=== PATIENT | male | born 1975 | race Hispanic/Latino ===

== ENCOUNTER 2017-06-28 17:17 | Inpatient (IN) | payer OTHER ==
[~2017-06-28 17:17] MED LIST: ISOVUE-370 76%-LOCM 1 ML ONE; Iopamidol-M 200 41% 20 ML VIAL ONE
[2017-06-28 18:36] LABS: #Eosinphils 0.1 thou/uL (0.0-0.7); #Lymphocytes 1.9 thou/uL (1.20-3.40); #Monocytes 0.5 thou/uL (0.11-0.59); %Basophils 0.1 % (0.0-1.0); %Eosinophils 1.3 % (0.0-10.0); %Lymphocytes 20.1 % (21.0-51.0); Hematocrit 43.8 % (42.0-52.0); Mean Platelet Volume 6.8 fL (7.4-10.4); Red Blood Cell (RBC) Count 5.01 mill/uL (4.70-6.10); White Blood Cell (WBC) Count 9.4 thou/uL (4.8-10.8)
[2017-06-28 19:00] LABS: ALT (SGPT) 25 U/L (8-55); AST (SGOT) 16 U/L (5-34); Alkaline Phosphatase 69 U/L (40-150); Anion Gap 16 mmol/L (10-20); BUN (Urea Nitrogen) 10 mg/dL (8.9-20.6); Bilirubin, Total 0.6 mg/dL (0.2-1.2); Calc. Creatinine Clearance 0 mL/min (70-130); Calcium 9.6 mg/dL (7.8-10.44); Carbon Dioxide 18 mmol/L (22-29); Chloride 108 mmol/L (98-107); Estimated GFR-MDRD 77; Globulin 3.7 g/dL (2.4-3.5); Protein, Total 7.6 g/dL (6.0-8.3)
[2017-06-28 19:03] LABS: Troponin I Less than 0.010 ng/mL (< 0.028)
--- NOTE | 2017-06-28 19:22 | CT ---
CTA OF THE THORAX UTILIZING IV CONTRAST PE PROTOCOL AND 3D REFORMATTED IMAGING 06/28/17 INDICATION: Chest pain, shortness of breath. Concern for PE. COMPARISON: Prior exam dated 12/25/16. FINDINGS: No central or segmental pulmonary embolus is present. There are areas of subsegmental atelectasis within both lower lobes. No pathologically enlarged lymp h nodes are evident. Heart and great vessels are unremarkable. There is fatty infiltration of the liver. There is scattered degenerative change. IMPRESSION: No central or segmental pulmonary embolus. POS: JON
--- NOTE | 2017-06-28 22:20 | CT ---
CT LUMBAR MYELOGRAM: 06/28/17 INDICATION: Cauda equina syndrome. COMPARISON: Prior MR lumbar spine dated 01/11/[address] lumbar spine dated 03/12/16. TECHNIQUE: Multiple CT images were obtained after intrathecal administration of contrast material. Please see Paty Ace's dictation concerning the lumbar myelogram for details concerning injection technique. FINDINGS: There is a mixed compartmental injection with intrathecal contrast and components of subdural contra st collections seen involving the lower thoracic spine as well as the lower lumbar spine. No acute fracture is evident. At the L5-S1 level, there is a stable asymmetric to the right disc osteophyte complex with loss of d isc space height and facet joint degenerative change inducing stable moderate to severe bilateral ne ural foraminal narrowing. At L4-5, there is a stable broad based disc osteophyte complex with facet joint degenerative change and ligamentum flavum hypertrophy inducing stable moderate to severe central canal narrowing. There is moderate bilateral neural foraminal narrowing which is stable. At L3-4, there is a broad based asymmetric to the right disc osteophyte complex again causing stable moderate central canal narrowing with moderate left and moderate to severe right neural foraminal n arrowing. Again seen are bilateral pars defects at L3. At L2-3, there is a mild broad based bulge with mild encroachment on the neural foramina which appea rs similar to the prior exam. At L1-2, there is no appreciable central canal or neural foraminal narrowing. At T12-L1, there is no appreciable central canal or neural foraminal narrowing. IMPRESSION: 1. Stable bilateral pars defects at L3 with advanced disc degenerative disease at L3-4 inducing stable moderate central canal narrowing with moderate left and moderate to severe right neural fora norma narrowing. 2. Stable moderate to severe central canal narrowing at L4-5 with moderate bilateral neural for aminal narrowing. 3. Stable moderate to severe bilateral neural foraminal narrowing at L5-S1. POS: JON
[2017-06-28 22:29] LABS: PTT 30.1 SEC (22.9-36.1); Prothrombin Time 13.7 SEC (12.0-14.7)
[2017-06-28] MEDS ORDERED: Bupivacaine HCl 0.5%/Epinephrine 1:200,000/PF 30 ml Vial ONE (22:48)
[2017-06-28] MEDS ORDERED: Thrombin 5000 UNITS/5 ML VIAL ONE (22:48)
[2017-06-28] MEDS ORDERED: Fentanyl 100 MCG/2 ML VIAL ONE (22:49)
[2017-06-28] MEDS ORDERED: Midazolam HCl 2 mg/2 ml Vial ONE (22:49)
[2017-06-28] MEDS ORDERED: Propofol 200 MG/20 ML VIAL ONE (23:25)
[2017-06-28] MEDS ORDERED: Lidocaine 1% PF 5 ML VIAL ONE (23:25)
[2017-06-28] MEDS ORDERED: PHENYLEPHRINE-NS 100 MCG/ML 10 ML SYRINGE ONE (23:25)
[2017-06-28] MEDS ORDERED: ePHEDrine/0.9% NaCl/PF SYRINGE 50 mg/10 ml ONE (23:25)
[2017-06-28] MEDS ORDERED: Vecuronium 10 MG VIAL ONE (23:25)
[2017-06-29] MEDS ORDERED: Sodium Chloride 0.9% 10 ML ONE ×2 (00:04→03:55)
[2017-06-29] MEDS ORDERED: Albumin 5% 500 ML ONE (01:35)
[2017-06-29] MEDS ORDERED: Phenylephrine 10 MG/NS 250 ML 250 ML ONE (01:35)
[2017-06-29] MEDS ORDERED: Vecuronium 10 MG VIAL ONE (02:51)
[2017-06-29] MEDS ORDERED: Acetaminophen/Codeine 30-300mg Tablet PO PRN ×2 (05:17)
[2017-06-29] MEDS ORDERED: Ondansetron HCl/PF 4 MG/2 ML Vial IVP PRN ×2 (05:25→09:20)
[2017-06-29] MEDS ORDERED: HYDROcodone/Acetaminophen 10/325 mg Tablet PO PRN ×2 (05:25)
[2017-06-29 06:15] VITALS: BMI 47.4
[2017-06-29] MEDS: Sodium Chloride 0.9% 1,000 ML IV SCH ×2 (06:28→19:00)
--- NOTE | 2017-06-29 06:32 | HP ---
DATE OF ADMISSION: 06/29/2017 HISTORY OF PRESENT ILLNESS: Mr. Zee is a 41-year-old male, who presented to [facility] tonight with complaining of low back pain and bilateral burning chest pain while sitting watching TV and shortness of breath. He notes he had nausea, one episode of vomiting, and chronic lower back pain. The patient was ambulatory yesterday morning, but he is unable to use his left leg as he has weakness and numbness, feels like it is going to give out. He is a known patient to Dr. Joseph in 01/2016. He was found to have an L3-L5 spinal stenosis. He was seen at [facility] back in 07/2016 for low back pain. He is unable to fit in the MRI scanner. It was suggested that he go see a surgeon about gastric sleeve before the low back, lumbar spine operation. Today, he returns without having had a past gastric sleeve operation to the emergency department with low back pain and since 8:00 p.m. on Friday of 06/27/2017. He reports having bowel and bladder incontinence 5 times. He noted \\\\"he wanted to mend it out\\\\", but then he decided that something else may be going on with his spine. CT myelogram of the lumbar spine was completed and showed severe stenosis at the L3-L5 region of the lumbar spine. Neurosurgery was consulted for these findings. ALLERGIES: KETOROLAC, LYRICA, METOCLOPRAMIDE, NSAIDs, GABAPENTIN, REGLAN, TORADOL, and TRAMADOL. MEDICATIONS: 1. Lipitor 40 mg oral once a day. 2. Losartan 100 mg oral once a day. 3. Clonazepam 1 mg oral once a day. 4. Morphine IR 15 mg. 5. Morphine extended-release capsule 10 mg oral. PAST MEDICAL HISTORY: Includes hyperlipidemia, high cholesterol, hypertension which has been treated, musculoskeletal disorder, osteoarthritis, degenerative joint disease, chronic back pain, spinal stenosis, lower back fracture per prior pulmonary embolism. He has been off blood thinners for greater than 3 months. PAST SURGICAL HISTORY: Cholecystectomy and circumcision. PSYCHIATRIC HISTORY: No previous psychiatric history. SOCIAL HISTORY: The patient denies alcohol use, drug use, or tobacco use. FAMILY HISTORY: Noncontributory to this case. REVIEW OF SYSTEMS: Patient reports chest pain. He reports shortness of breath. He reports low back pain and gait changes, numbness in the saddle region in the left leg and weakness x2 days. He reports bowel and bladder incontinence since Friday06/27/2017 at 8 p.m. PHYSICAL EXAMINATION: CONSTITUTIONAL/VITAL SIGNS: Reviewed and he is hemodynamically stable. He is afebrile, appears nontoxic, appears in mild pain. He is alert and oriented to person, place and time. HEENT: Normocephalic, atraumatic. Hearing intact. Moist mucous membranes. Trachea midline. EYES: Pupils equal and reactive to light. Extraocular muscles are intact. Sclerae is white, nonicteric. RESPIRATORY: The patient has bilateral symmetric chest rise. Appears to be in no shortness of breath. CARDIOVASCULAR: The patient has regular rate and rhythm. Normal S1, S2 heart sounds. EXTREMITIES: No distal cyanosis or clubbing noted. BACK: Tender to palpation in the midline lumbar spine. Range of motion is limited to pain. MUSCULOSKELETAL: Upper extremity 5/5 strength bilaterally in all muscle groups in the upper extremity. Lower extremity, 5/5 strength in the right lower extremity, 3/5 strength in the left lower extremity and numbness to light touch in the left lower extremities. No certain dermatomal pattern. NEUROLOGIC: Cranial nerves II through XII are grossly intact. His speech is fluent. He answers my questions appropriately. He is unable to walk due to left leg pain and numbness. SKIN: Normal skin exam. Warm, dry, and intact. Numbness to the saddle region in his left leg. PSYCHIATRIC: Normal psychiatric exam. ASSESSMENT: Mr. Zee is a 41-year-old male, who has lumbar spinal stenosis, low back pain, saddle anesthesia, left leg numbness and weakness x24 hours. PLAN: We will take him to the operating room. He has a pars fracture on both sides of L3. He will need a laminectomy L3-S1 and lumbar spinal fusion L3-L4. Since there is new bowel or bladder incontinence, we will operate. If there are any further questions, please feel free to contact Neurosurgery. NAYE
[2017-06-29] MEDS ORDERED: Lorazepam 2 MG/ML VIAL SLOW IVP SCH (07:00)
[2017-06-29 07:23] LABS: Oxyhemoglobin 96.2 % (94.0-97.0); Pressure Support 10 cmH2O; Sodium 138 mmol/L (135-148); Spontaneous Rate 18 min; Vent YES
[2017-06-29 07:24] LABS: Mode CPAP
--- NOTE | 2017-06-29 07:54 | RAD ---
FLUOROSCOPIC GUIDED LUMBAR MYELOGRAM: HISTORY: A 41-year-old male with back pain and right leg pain. FINDINGS: The patient has too large a body habitus to fit in the conventional MRI scanner. We have been asked by the emergency room to perform emergency after-hour myelogram. Informed consent was obtained from the patient and his . The patient was placed in the fluorosc opy unit. The patient L1-2 interlaminar region was localized using fluoroscopic guidance. The over lying skin was prepped and draped in the usual sterile manner. A 1% Lidocaine solution was used to anesthetize the overlying soft tissues. A 22 gauge 20 cm needle was used to gain access into the franco barachnoid space. Fifteen millimeters of Isovue-M 200 was injected. No complications encountered. IMPRESSION: Successful fluoroscopically guided lumbar puncture. POS: JON
--- NOTE | 2017-06-29 08:11 | PRG ---
DATE OF SERVICE: 06/28/2017 I personally examined the patient, reviewed the images and agree with the documentation of Mark garcia PA-C, dated 06/28/2017. SUBJECTIVE: Briefly, Mr. Melvin Zee is a 41-year-old gentleman known to Dr. Tineo and Dr. Vanita kan from our neurosurgery clinic. He has been in the emergency department in multiple institutions [facility] including [facility], [facility], and [facility]. These evaluations were often for low back pain. He has seen Dr. Joseph in our clinic for low back pain. He has had no rather severe lumbar stenosis for quite some time. He has DVT and pulmonary embolus in the past and has morbid obesity. He was not deemed safe candidate for general anesthesia. He never had an operation. Mr. Zee had occasions in the past where he fell and urged to avoid the bladder, but did not make the bathroom in time before he lost control. However, around 8:00 p.m. on Friday the , began lau ving uncontrolled stool and uncontrolled urine production and saddle anesthesia. He waited about 24 hours come to the emergency department. He was evaluated with a CT myelogram, which shows the know n stenosis. Also shows the known pars fractures of L3 bilaterally. We offered him urgent surgical intervention. The patient is known to be high risk for surgery including postoperative complications such as wound dehiscence or wound infection. He is particularly rather high risk for infection. Nonetheless, wi thout surgery, I do not think there is much hope for regaining bowel and bladder function and may ne ed to have significant leg braces or wheelchair dependence. Decision was not to intervene with thes e balanced against a high risk of surgery or reluctant to go forward. We discussed indications, risks, benefits, and alternatives and surgical intervention for cauda equi na syndrome. The risks discussed included, but were not limited to bleeding, infection, CSF leak, w ound dehiscence, instrumentation failure, need for future surgery and cardiopulmonary complications of anesthesia, major blood vessels, injury, and . They understand the risks and wants to proce ed. We were planning to decompress from L3 to sacrum and fix the pars fractures with transforaminal lumbar interbody arthrodesis, pedicle screw and rods and instrumentation at L3-L4.
[2017-06-29] MEDS ORDERED: Naloxone HCl 0.4 mg/ml Vial IV PRN (09:20)
[2017-06-29] MEDS ORDERED: diphenhydrAMINE HCl 25 MG CAP PO PRN (09:20)
[2017-06-29] MEDS ORDERED: diphenhydrAMINE HCl 50 MG/ML 1 ML VIAL IM PRN (09:20)
[2017-06-29] MEDS ORDERED: diphenhydrAMINE HCl 50 MG/ML 1 ML VIAL IVP PRN (09:20)
[2017-06-29] MEDS ORDERED: Communication Order-Pharmacy FS SCH (09:30)
[2017-06-29] MEDS: Fentanyl 5000 MCG/250 ML CADD IVPB PRN (10:05)
--- NOTE | 2017-06-29 14:00 | OP ---
DATE OF PROCEDURE: Commenced 06/28/2017, finished 06/29/2017 SURGEON: Nan Medina III, M.D. JOB COACH: Mark Shelton PA-C PREOPERATIVE INDICATION: Prevent further neurological deterioration and offer hope of recovery. PREOPERATIVE DIAGNOSIS: Longstanding lumbar stenosis, new onset saddle numbness and profound incont inence. POSTOPERATIVE DIAGNOSIS: Longstanding lumbar stenosis, new onset saddle numbness and profound incon tinence. OPERATIVE PROCEDURES: Decompressive laminectomy, medial facetectomy, foraminotomy at L3-L4, L4-L5, L5-S1 transforaminal lumbar interbody arthrodesis L3-L4 for bilateral L3 pars fractures, placement o f intervertebral biomechanical device, pedicle screw and ketan instrumentation, posterolateral arthrod esis L3-L4, local morselized autograft, morselized allograft. PREOPERATIVE MEDICATION: Ancef 2 grams IV. DRAIN NUMBER: One. DRAIN TYPE: 10 [place] Antoine. OPERATIVE DICTATION: The patient was brought to the operating room from the emergency department. There is some new onset saddle anesthesia, multiple episodes of incontinence starting 24 hours prior to his ER admission. We brought him to surgery urgently from our emergency department. General en dotracheal anesthesia was induced. The patient was positioned prone on the Demar frame with his c hest and hips supported by the appropriate attachments for the Demar frame. Lateral fluoro radiog raph was used to plan our incision. The lumbar skin was sterilely prepped and draped. We opened th e skin with a 10 blade knife and controlled bleeding with bipolar and monopolar cautery. We used mo nopolar cautery to dissect carefully through a copious amount of subcutaneous fat until we finally r eached the thoracodorsal fascia. We incised the fascia in the midline and reflected the paraspinal muscles off the spinous process and lamina from L3-S1. A self-retaining retractor was placed. The dissection was arduous given the patient's enormous size. A lateral fluoro radiograph confirmed the levels upon which we were operating. We then carried our dissection over the L2-L3 and L3-L4 facet joints to expose the transverse processes of L3 and L4 bilaterally. We then began the laminectomy with Adson and Leksell rongeurs. We opened in the midline with Kerrison's and widened our laminecto my defect on both sides with a high-speed drill and Kerrison rongeurs until we were lateral to the t hecal sac and flush with the pedicles at L3, L4, L5, and S1. We performed foraminotomies over the e xiting nerve roots. The L3 pars fractures were noted on each side. The pars interarticularis and f acet joints were removed on both sides. There were too many veins to access intervertebral space fr om the left, then we approached from the right. We incised the disk space through the foramen and e mptied disk contents using curettes and rongeurs. A rectangular shaped bone rasp measured the heigh t of the interspace to 10 mm. We prepared the endplates for grafting and then brought a 10 mm PEEK graft into the field. The laminectomy bone was carefully morselized on the back table and morselize d bone without any soft tissue attached was added to demineralized bone matrix as our fusion substra te. A fusion suture was placed in a 10 mm PEEK graft. This 10 mm graft was advanced into the L3-L4 interspace to the appropriate depth of radiographic guidance. We turned our attention to pedicle s crew instrumentation. Using bony anatomic landmarks, palpation of the medial portion of the pedicles, and a lateral fluoro radiograph as a guide, we chose entry points for pedicle screws at L3 and L4 bilaterally. We used a high-speed drill to create our entry points, bone awl to create our trajectories and a tap to prep are them for screws. We probed the trajectories and found them completely encased in bone. We then placed 6.5 x 55 mm screws bilaterally at L3 and L4. We irrigated copiously with bacitracin irrigat ion. Rods were placed and the screw heads and caps were tightened over the rods using a torque-coun ter-torque mechanism after compression across the interspace to keep the interbody device in place. We applied multiple Valsalva maneuvers to the patient and did not see any CSF egress from the preop erative myelogram. In the entry point, there was at L1-L2 one space superiorly where laminectomy en ded. We elected not to expose that area. We then irrigated copiously with bacitracin irrigation. We decorticated the transverse processes of L3 and L4 bilaterally and over the decorticated bone, we left demineralized bone matrix and morselized autograft as our posterolateral fusion substrate. We ensured each nerve root from L3-S1 on both sides and was adequately decompressed. We tunneled the drain inferiorly through a separate stab incision. We treated the wound with vancomycin powder. We closed in anatomic layers over a drain. This was a clean case and no contamination.
[2017-06-29] MEDS: Cyclobenzaprine 10 MG TAB PO PRN (20:24)
[2017-06-29] MEDS: Atorvastatin Calcium 40 MG TAB PO SCH (20:24)
[2017-06-30] MEDS: Cyclobenzaprine 10 MG TAB PO PRN ×2 (03:57→16:00)
[2017-06-30] MEDS: Gabapentin 300 MG CAP PO SCH ×3 (08:17→21:11)
[2017-06-30] MEDS: Losartan Potassium 25 MG TAB PO SCH (08:18)
[2017-06-30] MEDS: clonazePAM 1 MG TAB PO SCH (08:18)
--- NOTE | 2017-06-30 08:28 | PRG ---
DATE OF SERVICE: 06/30/2017 Mr. Zee is 1 day out from decompression fusion in lumbar spine for cauda equina syndrome, severe stenosis and bilateral L3 pars fractures. Mr. Zee is in an expected amount of pain after surgery. The nerves in the sacral area are awaken ing and has resulted in some electric radiating pains to the scrotum and perineal area. This area w as numb before surgery. There is antigravity strength in the lower extremities. Mr. Zee is refu sing to move for the nurses. He does not want to be turned from side to side, he is resting directl y on his incision with all of his body weight. 195 mL have come out of the drain. My plan for Mr. Zee is to mobilize. In spite of his pain and will need to be rolled side to side. If he refuses to be rolled, will have to get a bed to minimiz e pressure on his incision and reduce the risks of a sacral decubitus and wound dehiscence. Beds th at roll side to side on their own could be helpful or an air bed or sand bed. We will have wound ca re decide on the bed platform that is best given his body habitus. Mr. Zee is at high risk for postoperative complications. He is extremely high risk for infection given his obesity, his lack of sensation in the incisional area and his fecal incontinence. Those 3, combined with likely type 2 diabetes, make his infection risk exceedingly high. He was treated w ith vancomycin powder at the time of surgery, we will have to keep a close eye on his incision. Mr. Zee's other risk is his body weight. The instrumentation, we left in will be put under signi ficant distress once he starts mobilizing. If instrumentation breaks and there is slip between the vertebrae it may have to be revised or a neurological deficit could result. I will have to get him fitted with a brace of some sort once he is able to tolerate being up. Mr. Zee is in a difficult situation. He is overweight. He had a cauda equina syndrome that resu lted incontinence for around 24 hours. I anticipate that more will have to be done, which is unfort unate.
[2017-06-30] MEDS: Sodium Chloride 0.9% 1,000 ML IV SCH ×2 (08:35→21:13)
--- NOTE | 2017-06-30 08:50 | PRG ---
DATE OF SERVICE: 06/30/2017 Mr. Zee is a 41-year-old male who is status post 2 days out from a laminectomy L3 through S1 and fusion L3 through L4 for cauda equina syndrome. There were no acute events overnight in the ICU. H is vital signs have been stable. Neurologically, he is intact. He does have some weakness in the l eft leg, mild weakness and he complains of a burning sensation in the pelvic area. Will add Gabapen tin 300 mg p.o. t.i.d. for the nerve pain in the pelvic region. Today we will move him to the floor , on the surgical unit and have physical therapy aggressively work with him to mobilize. Will also get a pressure bed since he is morbidly obese and try to keep his weight off of the incision. Outpu t from the MARK drain was approximately 60 mL since yesterday at 8:00 p.m. I talked to him this morni ng about the importance of losing weight and mobilizing to prevent DVT and future pulmonary embolism . If there are any further questions, please feel free to contact Neurosurgery.
[2017-06-30] MEDS: Fentanyl 5000 MCG/250 ML CADD IVPB PRN (12:12)
[2017-06-30] MEDS: Atorvastatin Calcium 40 MG TAB PO SCH (21:11)
[2017-07-01] MEDS: Cyclobenzaprine 10 MG TAB PO PRN ×2 (00:34→23:29)
--- NOTE | 2017-07-01 06:45 | PRG ---
DATE OF SERVICE: 07/01/2017 SUBJECTIVE: I saw Mr. Zee in his room this morning. He is status post from a lumbar decompressi on and fusion of L3-L4, lumbar decompression at L3-S1. He is doing well this morning in no acute di stress. There are no new neurologic deficits on exam. The left leg numbness and tingling is starti ng to resolve and he feels like he is getting better strength in the left and right lower extremitie s. The testicular burning and pelvic nerve pain that he was having yesterday starting to resolve. He is able tolerate a regular diet. Work with physical therapy yesterday and was able to stand up a t bedside. However, he did not ambulate in the proctor yet. Today, it will be important for him to ge t up and ambulate as much as possible with physical therapy. He will need to wear the LSO brace whe n ambulating or sitting upright. He has been transferred from the ICU to the floor and his pain is much better this morning. I added Colace to his medicine regimen to help with constipation. If the re are any further questions, please feel free to contact Neurosurgery.
--- NOTE | 2017-07-01 07:10 | PRG ---
DATE OF SERVICE: 07/01/2017 SUBJECTIVE: Mr. Zee is 2 days out from decompression fusion in the lumbar spine for cauda equina . The catheter was removed and he says he can feel his bladder when its full. There is some diffic ulty emptying the bladder, but eventually can get it done into the urinal. He feels his feet, but t hey do not feel normal. He has been moved out of the ICU. On examination, Mr. Zee does indeed feels sensation all the way to the bottoms of his feet. This sensation is diminished, but if there, he has antigravity strength throughout and actually moves ag ainst some resistance. Mr. Zee will have a protracted recovery given the size is at high risk for infection and he will need placement inpatient rehabilitation. We will try to make arrangements for that placement.
[2017-07-01] MEDS: Docusate 100 MG CAP PO PRN (09:48)
[2017-07-01] MEDS: Losartan Potassium 25 MG TAB PO SCH (09:48)
[2017-07-01] MEDS: clonazePAM 1 MG TAB PO SCH (09:48)
[2017-07-01] MEDS: Gabapentin 300 MG CAP PO SCH ×3 (09:48→20:19)
[2017-07-01] MEDS: Sodium Chloride 0.9% 1,000 ML IV SCH ×2 (09:49→23:30)
[2017-07-01] MEDS: Fentanyl 5000 MCG/250 ML CADD IVPB PRN (17:55)
[2017-07-01] MEDS: Atorvastatin Calcium 40 MG TAB PO SCH (20:19)
[2017-07-02] MEDS: clonazePAM 1 MG TAB PO SCH (09:24)
[2017-07-02] MEDS: Losartan Potassium 25 MG TAB PO SCH (09:24)
[2017-07-02] MEDS: Gabapentin 300 MG CAP PO SCH ×3 (09:24→20:14)
[2017-07-02] MEDS: Docusate 100 MG CAP PO PRN (09:27)
--- NOTE | 2017-07-02 12:09 | PRG ---
DATE OF SERVICE: 07/02/2017 I saw Mr. Zee in his hospital room this morning. He was able to stand yesterday. He is not yet walking. He still does not feel when his bladder is full, but he does get some bladder spasms and s ome body sensations that remind that he might need to start urinating. Mr. Zee is anxious to start his rehabilitation. I think that the next phase in his treatment. O nce he is a candidate for inpatient rehabilitation, we can make the transfer.
[2017-07-02] MEDS: Sodium Chloride 0.9% 1,000 ML IV SCH ×2 (12:35→20:19)
[2017-07-02] MEDS: Cyclobenzaprine 10 MG TAB PO PRN (12:35)
[2017-07-02] MEDS: Atorvastatin Calcium 40 MG TAB PO SCH (20:13)
[2017-07-03] MEDS: Fentanyl 5000 MCG/250 ML CADD IVPB PRN (02:15)
[2017-07-03] MEDS: Cyclobenzaprine 10 MG TAB PO PRN ×2 (02:23→15:29)
[2017-07-03] MEDS: Losartan Potassium 25 MG TAB PO SCH (09:29)
[2017-07-03] MEDS: clonazePAM 1 MG TAB PO SCH (09:29)
[2017-07-03] MEDS: Gabapentin 300 MG CAP PO SCH ×3 (09:29→20:16)
[2017-07-03] MEDS: Sodium Chloride 0.9% 1,000 ML IV SCH (18:34)
[2017-07-03] MEDS: Acetaminophen 325 MG TAB PO PRN (20:16)
[2017-07-03] MEDS: Atorvastatin Calcium 40 MG TAB PO SCH (20:16)
[2017-07-04] MEDS: Sodium Chloride 0.9% 1,000 ML IV SCH ×2 (00:56→20:33)
--- NOTE | 2017-07-04 07:26 | PRG ---
DATE OF SERVICE: 07/04/2017 I saw Melvin Zee in his hospital room this morning. He is 5 days out from lumbar decompression fo r cauda equina syndrome and fusion for pars fractures. Mr. Zee remains in his wound care bed to keep pressure off of his incision. Drains have already been removed. He did ambulate with his brace on for a few steps in the proctor yesterday. I think he would be a good candidate for inpatient rehabilitation. As soon as they have a bed available and he is approved for that we can transfer him. Mr. Zee is worried that he does not have much of an a ppetite, but I do not think suppressant is needed as long as he is getting fluids in. Dietary has recommended Ensure and he is already taking it.
[2017-07-04] MEDS: clonazePAM 1 MG TAB PO SCH (08:35)
[2017-07-04] MEDS: Losartan Potassium 25 MG TAB PO SCH (08:35)
[2017-07-04] MEDS: Gabapentin 300 MG CAP PO SCH ×3 (08:35→21:03)
[2017-07-04] MEDS: Fentanyl 5000 MCG/250 ML CADD IVPB PRN (08:50)
[2017-07-04] MEDS: Acetaminophen 325 MG TAB PO PRN ×2 (12:29→23:50)
[2017-07-04] MEDS: Cyclobenzaprine 10 MG TAB PO PRN ×2 (12:29→21:05)
[2017-07-04] MEDS: Atorvastatin Calcium 40 MG TAB PO SCH (21:03)
[2017-07-05] MEDS: clonazePAM 1 MG TAB PO SCH (07:59)
[2017-07-05] MEDS: Losartan Potassium 25 MG TAB PO SCH (07:59)
[2017-07-05] MEDS: Gabapentin 300 MG CAP PO SCH ×3 (08:00→21:01)
[2017-07-05] MEDS: Cyclobenzaprine 10 MG TAB PO PRN ×2 (08:02→21:13)
--- NOTE | 2017-07-05 14:14 | PRG ---
DATE OF SERVICE: 07/05/2017 Anders Cheema PA-C dictating for Dr. Phillip Joseph. SUBJECTIVE: Mr. Zee is now postoperative day #7, having undergone a lumbar decompression for cau da equina syndrome and fusion for pars fractures. He has been ambulating in his brace through the alls and states that the only pain he is experiencing is incisional back pain. He has not noted any weakness in the bilateral lower extremities. He is currently using his IS while in bed. He does s price that he is continuing to feel better daily. He remains at neurologic baseline. We will contin ue to follow the patient, he is progressing well. He states that he does have a small amount of leg pain, worse on the left than the right, but again this is improving daily. The plan is inpatient r ehab when stable. We will continue to follow the patient. Please call with any change in neurologi c status.
[2017-07-05] MEDS: Sodium Chloride 0.9% 1,000 ML IV SCH (16:47)
[2017-07-05] MEDS: Atorvastatin Calcium 40 MG TAB PO SCH (21:01)
[2017-07-06] MEDS: Fentanyl 5000 MCG/250 ML CADD IVPB PRN (02:37)
[2017-07-06] MEDS: Sodium Chloride 0.9% 1,000 ML IV SCH ×2 (06:10→10:44)
[2017-07-06] MEDS: Docusate 100 MG CAP PO PRN (08:35)
[2017-07-06] MEDS: Gabapentin 300 MG CAP PO SCH ×3 (08:36→21:02)
[2017-07-06] MEDS: clonazePAM 1 MG TAB PO SCH (08:36)
[2017-07-06] MEDS: Losartan Potassium 25 MG TAB PO SCH (08:36)
--- NOTE | 2017-07-06 12:47 | PRG ---
DATE OF SERVICE: 07/06/2017 SUBJECTIVE: Mr. Zee is hospital day 6, following lumbar decompression and stabilization for caud a equina syndrome. He is mobilizing in the hallway as I see him today with a rolling walker and sta jono he feels significantly better each day. This is excellent news. He is able to activate all ijeoma tomes on exam and I feel even improvement in his pelvic and perineal sensation. I am very pleased w ith how Mr. Zee is doing. I have encouraged him in this regard.
[2017-07-06] MEDS ORDERED: FLU VACC QS2017-18 36 mo. & older 0.5 ML SYRINGE IM ONE (17:15)
[2017-07-06] MEDS: Cyclobenzaprine 10 MG TAB PO PRN (21:01)
[2017-07-06] MEDS: Atorvastatin Calcium 40 MG TAB PO SCH (21:02)
[2017-07-07] MEDS: Sodium Chloride 0.9% 1,000 ML IV SCH ×2 (02:13→12:10)
--- NOTE | 2017-07-07 06:55 | PRG ---
DATE OF SERVICE: 07/07/2017 Mr. Zee is a 41-year-old male who I saw in his room this morning. Yesterday he has been able to ambulate with physical therapy in the proctor. He has been able to tolerate a regular diet and his massiel n is well controlled with IV pain medication. There are no new neurologic deficits on exam this mor anil and his legs seem to be getting stronger. Today we will have him continue to ambulate with phy sical therapy while case management looks for a place for him to go to rehab. The Anesthesiology gr oup will be working on discontinuing his [employer] pump and restarting him on his home pain medications. Overnight, his vital signs have been stable and there were no acute events overnight. If there are any further questions, please feel free to contact Neurosurgery.
[2017-07-07] MEDS: Losartan Potassium 25 MG TAB PO SCH (09:00)
[2017-07-07] MEDS: Docusate 100 MG CAP PO PRN (09:00)
[2017-07-07] MEDS: Gabapentin 300 MG CAP PO SCH ×3 (09:06→22:21)
[2017-07-07] MEDS: Cyclobenzaprine 10 MG TAB PO PRN ×2 (09:16→22:20)
[2017-07-07] MEDS: clonazePAM 1 MG TAB PO SCH (09:18)
--- NOTE | 2017-07-07 09:24 | PRG ---
DATE OF SERVICE: 07/07/2017 SUBJECTIVE: Mr. Zee continues to recuperate from decompression with fusion of the lumbar spine i n the setting of cauda equina syndrome. Mr. Zee is doing his best to keep his weight off this in cision by lying side to side. He is up with physical therapy and he made it one quarter of the proctor way yesterday. I think he is a good candidate for inpatient rehabilitation. He can be transferred at any time. We will make those arrangements today.
[2017-07-07] MEDS: Zolpidem Tartrate 5 MG TAB PO PRN (22:20)
[2017-07-07] MEDS: Atorvastatin Calcium 40 MG TAB PO SCH (22:21)
[2017-07-08] MEDS: Sodium Chloride 0.9% 1,000 ML IV SCH ×2 (05:44→17:21)
--- NOTE | 2017-07-08 06:45 | PRG ---
DATE OF SERVICE: 07/08/2017 Mr. Zee is still a recuperating from his decompression fusion for cauda equina syndrome. He is m aking slow, but steady progress with physical therapy. He walked down half the hallway yesterday, h e did reasonably well. Mr. Zee is trying as best he can to keep weight off of his incision. He tries to move around as much as possible. I will get an ultrasound of the lower extremities today t o rule out DVT. Given his body habitus, I could not tell if either leg was more swollen than the ot her.
--- NOTE | 2017-07-08 08:17 | PRG ---
DATE OF SERVICE: 07/08/2017 HISTORY OF PRESENT ILLNESS: Mr. Zee is a 41-year-old male. I saw in his room this morning. He is status post decompression of the lumbar spine for cauda equina syndrome. He has been stable over night and there are no new neurologic deficits on exam. He has been working with physical therapy a nd ambulating in the proctor. His pain is well controlled with his home oral pain medication as he is now off of the [employer] pump. His vital signs have been stable overnight and he has been afebrile. Case management has been working on discharge. The last note that I see from them is a send out note. He will continue to work with physical therapy today and ambulate as much as possible. In the meant barbara, case management will continue to find a place for rehabilitation, working with his insurance co terrance to get approval. If there are any further questions, please feel free to contact Neurosurgery .
--- NOTE | 2017-07-08 09:06 | ULT ---
ULTRASOUND BILATERAL LOWER EXTREMITY VENOUS DOPPLER: HISTORY: Immobility, body habitus, at risk for DVT. History of DVT. COMPARISON: Lower extremity Doppler 05/01/17. TECHNIQUE: Bilateral lower extremity venous Doppler was performed in the bilateral common femoral, femoral, pro ximal portions, greater saphenous, and deep femoral vein as well as the popliteal and posterior tibi al veins. Normal flow, augmentation, and compression. IMPRESSION: No deep venous thrombosis. POS: OFF
[2017-07-08] MEDS: clonazePAM 1 MG TAB PO SCH (09:28)
[2017-07-08] MEDS: Cyclobenzaprine 10 MG TAB PO PRN ×2 (09:28→18:33)
[2017-07-08] MEDS: Gabapentin 300 MG CAP PO SCH ×3 (09:28→19:59)
[2017-07-08] MEDS: Losartan Potassium 25 MG TAB PO SCH (09:29)
[2017-07-08] MEDS: Atorvastatin Calcium 40 MG TAB PO SCH (19:59)
[2017-07-09] MEDS: Sodium Chloride 0.9% 1,000 ML IV SCH ×2 (06:01→17:03)
--- NOTE | 2017-07-09 07:06 | PRG ---
DATE OF SERVICE: 07/09/2017 Mr. Zee continues to work with our physical therapist and wait on rehab placement. An ultrasound yesterday was negative for DVT. Mr. Zee's neurological function is improving. He can feel when his bladder is full and starting to control his sphincter better and better. He has good sensation and strength in the legs. The in cision looks reasonable. He is going to have to be very careful about keeping weight off of his inc ision to avoid dehiscence and infection.
--- NOTE | 2017-07-09 07:30 | PRG ---
DATE OF SERVICE: 07/09/2017 Mr. Zee is a 41-year-old male I saw in his room this morning. Overnight there have been no acute events. There are no new neurologic deficits on exam. The 4 x 4s over the incision were removed a nd replaced today and held in place with Medipore tape. Incision is clean, dry, and intact with Jonathan ri-Strips and subcutaneous stitches. Yesterday, he was able to ambulate with physical therapy out i n the proctor. He had a venogram yesterday that showed no deep vein thrombosis. He was able to tolera te a regular diet and his pain is well controlled with his home oral pain medication. We continue t o wait on disposition from rehab and case management. If there are any further questions, please feel free to contact Neurosurgery.
[2017-07-09] MEDS: Cyclobenzaprine 10 MG TAB PO PRN (08:15)
[2017-07-09] MEDS: Docusate 100 MG CAP PO PRN (08:15)
[2017-07-09] MEDS: Losartan Potassium 25 MG TAB PO SCH (08:16)
[2017-07-09] MEDS: Gabapentin 300 MG CAP PO SCH ×3 (08:16→20:27)
[2017-07-09] MEDS: clonazePAM 1 MG TAB PO SCH (08:16)
[2017-07-09] MEDS: Atorvastatin Calcium 40 MG TAB PO SCH (20:27)
--- NOTE | 2017-07-10 06:29 | PRG ---
DATE OF SERVICE: 07/10/2017 Mr. Zee continues to slowly improve with physical therapy. He is recuperating from a lumbar deco mpression with fusion for both cauda equina syndrome and L3 pars fractures. He is morbidly obese a nd has a high risk for postoperative complications including infection and instrumentation failure. I think he would benefit from inpatient rehabilitation until he is safer with his activities of indra ly living.
[2017-07-10] MEDS: Gabapentin 300 MG CAP PO SCH ×3 (09:38→20:35)
[2017-07-10] MEDS: Losartan Potassium 25 MG TAB PO SCH (09:38)
[2017-07-10] MEDS: clonazePAM 1 MG TAB PO SCH (09:38)
[2017-07-10] MEDS: Sodium Chloride 0.9% 1,000 ML IV SCH ×2 (17:54→21:43)
[2017-07-10] MEDS: Atorvastatin Calcium 40 MG TAB PO SCH (20:35)
[2017-07-10] MEDS: Zolpidem Tartrate 5 MG TAB PO PRN (20:36)
[2017-07-10] MEDS: Cyclobenzaprine 10 MG TAB PO PRN (20:36)
[2017-07-11] MEDS: Promethazine HCl 25 MG/ML VIAL IM PRN (10:20)
[2017-07-11] MEDS: clonazePAM 1 MG TAB PO SCH (10:22)
[2017-07-11] MEDS: Losartan Potassium 25 MG TAB PO SCH (10:22)
[2017-07-11] MEDS: Gabapentin 300 MG CAP PO SCH ×3 (10:23→21:24)
[2017-07-11] MEDS: Cyclobenzaprine 10 MG TAB PO PRN ×2 (10:27→21:26)
[2017-07-11] MEDS: Sodium Chloride 0.9% 1,000 ML IV SCH (16:04)
--- NOTE | 2017-07-11 16:10 | PRG ---
DATE OF SERVICE: 07/11/2017 SUBJECTIVE: Mr. Zee is now 12 days out from lumbar laminectomy and fusion with Dr. Medina for cauda equina syndrome and pars defects bilaterally. The patient is in bed this morning with minima l complaints. We are still awaiting recent admission of inpatient rehabilitation evaluation as ther e is a great deal of concern for his medical comorbidities that he may have a significant complicati on with this type of surgery and as such need to step down facility to proceed to before going home eventually. No additional complaints. Neurosurgery is following.
[2017-07-11] MEDS: Atorvastatin Calcium 40 MG TAB PO SCH (21:24)
[2017-07-12] MEDS: Sodium Chloride 0.9% 1,000 ML IV SCH ×2 (00:51→14:10)
[2017-07-12] MEDS: Losartan Potassium 25 MG TAB PO SCH (08:36)
[2017-07-12] MEDS: Gabapentin 300 MG CAP PO SCH ×3 (08:36→20:06)
[2017-07-12] MEDS: clonazePAM 1 MG TAB PO SCH (08:36)
[2017-07-12] MEDS: Cyclobenzaprine 10 MG TAB PO PRN ×2 (08:43→21:55)
--- NOTE | 2017-07-12 09:22 | PRG ---
DATE OF SERVICE: 07/12/2017 SUBJECTIVE: Mr. Zee is status post decompression and fusion for cauda equina syndrome. There lau ve been no concerning events over the last 24 hours. We continue to await final disposition. Once disposition has been determined, Mr. Zee can be discharged right away.
--- NOTE | 2017-07-12 10:51 | PRG ---
DATE OF SERVICE: 07/12/2017 SUBJECTIVE: Mr. Zee is postop day 13 now following lumbar laminectomy and fusion. He is resting in his bed this morning and I do not arouse and plan with him is to just awaiting rehab placement.
[2017-07-12] MEDS: Atorvastatin Calcium 40 MG TAB PO SCH (20:06)
[2017-07-13] MEDS: Sodium Chloride 0.9% 1,000 ML IV SCH (03:13)
[2017-07-13] MEDS: Gabapentin 300 MG CAP PO SCH ×3 (08:12→20:47)
[2017-07-13] MEDS: clonazePAM 1 MG TAB PO SCH (08:12)
[2017-07-13] MEDS: Losartan Potassium 25 MG TAB PO SCH (08:13)
[2017-07-13] MEDS: Cyclobenzaprine 10 MG TAB PO PRN ×2 (08:14→20:47)
--- NOTE | 2017-07-13 12:05 | PRG ---
DATE OF SERVICE: 07/13/2017 SUBJECTIVE: Mr. Zee is resting again in bed this morning. [facility]
[2017-07-13 13:30] LABS: Mean Platelet Volume 6.6 fL (7.4-10.4); Red Blood Cell (RBC) Count 3.63 mill/uL (4.70-6.10); White Blood Cell (WBC) Count 7.7 thou/uL (4.8-10.8)
[2017-07-13 13:45] LABS: Anion Gap 13 mmol/L (10-20); BUN (Urea Nitrogen) 13 mg/dL (8.9-20.6); Calc. Creatinine Clearance 277 mL/min (70-130); Calcium 8.7 mg/dL (7.8-10.44); Carbon Dioxide 24 mmol/L (22-29); Chloride 103 mmol/L (98-107); Estimated GFR-MDRD Greater than 90
[2017-07-13 14:08] LABS: Anisocytosis SLIGHT = 6-15 cells (100X) (0-5/hpf); Neutrophil 58 % (42-75); Polychromasia SLIGHT = 2-3 cells (100X) (0-2/hpf); Reactive Lymphocytes 4 % (0-10)
[2017-07-13] MEDS: Atorvastatin Calcium 40 MG TAB PO SCH (20:48)
[2017-07-14] MEDS: Docusate 100 MG CAP PO PRN ×2 (05:51→20:46)
[2017-07-14] MEDS: Gabapentin 300 MG CAP PO SCH ×3 (09:12→20:46)
[2017-07-14] MEDS: clonazePAM 1 MG TAB PO SCH (09:12)
[2017-07-14] MEDS: Losartan Potassium 25 MG TAB PO SCH (09:13)
[2017-07-14] MEDS: Cyclobenzaprine 10 MG TAB PO PRN ×2 (12:12→20:46)
--- NOTE | 2017-07-14 17:41 | PRG ---
DATE OF SERVICE: 07/14/2017 SUBJECTIVE: Mr. Zee has been in the hospital now just over 2 weeks for cauda equina syndrome gina ated decompression and fusion. We continue to await final now on disposition. In the meanwhile, we will continue with aggressive physical therapy and occupational therapy.
[2017-07-14] MEDS: Atorvastatin Calcium 40 MG TAB PO SCH (20:46)
[2017-07-14] MEDS: Zolpidem Tartrate 5 MG TAB PO PRN (20:46)
--- NOTE | 2017-07-15 07:10 | PRG ---
DATE OF SERVICE: 07/15/2017 Mr. Zee is a 41-year-old male who I saw in his room this morning. He has been doing well over and there are no new neurologic deficits on exam. His vital signs have been stable over . He was able to ambulate with physical therapy approximately 300 feet. This morning I t ook his dressing off of the lumbar incision and had the nurse cleaned the incision with Hibiclens an d get all the sticky substance off of his back from the tape. We will leave the dressing open to diaz martinez. It is important that he lays on his side as much as possible to keep the weight off of his incis ion. We are still waiting disposition from rehab. The last note was on 07/10/2017. There have bee n in communication with [facility]; however, they are resending his information as a workers' compe nsation case to [facility] to reconsider. He can continue to work with physical therapy today as m uch as possible and ambulate in the rpoctor several times today. He is able to tolerate a regular diet and his pain is well controlled with pain medication. If there are any further questions, please feel free to contact Neurosurgery.
--- NOTE | 2017-07-15 07:13 | PRG ---
DATE OF SERVICE: 07/15/2017 Mr. Zee is over 2 weeks out from decompression for cauda equina and fusion of his L3 pars fractur es. Mr. Zee would be a good candidate for inpatient rehabilitation if he is able to secure the financ ial resources for it, I think it is the best thing for him. If somebody is able to watch the incisi on and do our best to keep it from dehiscing or getting infected. I asked him to lose weight over t barbara so the instrumentation left in the spine does not have undue stress for a long time and eventual ly fail.
[2017-07-15] MEDS: Gabapentin 300 MG CAP PO SCH ×3 (08:48→20:51)
[2017-07-15] MEDS: clonazePAM 1 MG TAB PO SCH (08:48)
[2017-07-15] MEDS: Losartan Potassium 25 MG TAB PO SCH (08:48)
[2017-07-15] MEDS: Cyclobenzaprine 10 MG TAB PO PRN ×2 (08:50→20:55)
[2017-07-15] MEDS: Atorvastatin Calcium 40 MG TAB PO SCH (20:52)
[2017-07-15] MEDS: Zolpidem Tartrate 5 MG TAB PO PRN (20:55)
--- NOTE | 2017-07-16 08:26 | PRG ---
DATE OF SERVICE: 07/16/2017 Mr. Zee is 2 weeks out from decompressive laminectomy at L3-S1 as well as fusion for his L3 pars fractures. This morning, he is doing well. There have been no acute events overnight. There are n o new neurologic deficits on exam. He has been able to ambulate with physical therapy greater than 300 feet in the hallway. He is able to tolerate a regular diet and his pain is well controlled with oral pain medication. His incision has been cleaned and looks like it is healing well. It will be important for him to keep the incision clean after he leaves the hospital as this will prevent infe ction. I will also write a script to send him home with 10 days of Keflex from the hospital for inf ection. We are waiting to hear from case management and to see if they can figure out his financial reasons that are keeping him in the hospital. He can be discharged from our point of view at any t barbara. I signed the MOT today and hopefully he can be transferred to rehabilitation. If there are an y further questions, please feel free to contact Neurosurgery.
[2017-07-16] MEDS: clonazePAM 1 MG TAB PO SCH (08:40)
[2017-07-16] MEDS: Losartan Potassium 25 MG TAB PO SCH (08:40)
[2017-07-16] MEDS: Gabapentin 300 MG CAP PO SCH ×3 (08:40→19:43)
[2017-07-16] MEDS: Cyclobenzaprine 10 MG TAB PO PRN ×2 (08:40→17:16)
[2017-07-16] MEDS: Atorvastatin Calcium 40 MG TAB PO SCH (19:44)
[2017-07-16] MEDS: Promethazine HCl 25 MG/ML VIAL IM PRN (19:48)
[2017-07-17] MEDS: Docusate 100 MG CAP PO PRN (00:30)
--- NOTE | 2017-07-17 06:54 | PRG ---
DATE OF SERVICE: 07/17/2017 Mr. Zee is a 41-year-old male who I saw in his room this morning. There are no new neurologic de ficits on exam. He has been able to ambulate over 300 feet with physical therapy. He is able fox ate a regular diet and his pain is well controlled with pain medication. Case management continues to work on placement for rehab therapy at this time and we are awaiting disposition orders from them . As soon as he is able to be discharged to rehab he can go. MOT has been signed and prescriptions are on the chart. If there are any further questions, please feel free to contact Neurosurgery.
[2017-07-17] MEDS: Losartan Potassium 25 MG TAB PO SCH (08:19)
[2017-07-17] MEDS: clonazePAM 1 MG TAB PO SCH (08:20)
[2017-07-17] MEDS: Gabapentin 300 MG CAP PO SCH ×3 (08:20→21:05)
[2017-07-17] MEDS: Cyclobenzaprine 10 MG TAB PO PRN ×2 (08:27→17:00)
[2017-07-17] MEDS: Atorvastatin Calcium 40 MG TAB PO SCH (21:05)
--- NOTE | 2017-07-18 08:25 | PRG ---
DATE OF SERVICE: 07/18/2017 HISTORY OF PRESENT ILLNESS: Mr. Zee is a 41-year-old male who I saw him in his room this monitor . He has been ambulating well in the proctor approximately 300 feet. He has been able to tolerate a r egular diet. His pain is well controlled with oral pain medication. His vital signs overnight have been stable and he has no new neurologic deficits on exam. I talked with Oma from rehab yesterd ay and she informed me that the insurance was no longer an issue; however, because of his progress, he has been denied access to rehabilitation. I discussed this with Dr. Medina this morning and w e still feel strongly that he needs rehab as he is 400 pounds and had a recent lumbar fusion and kingsley inectomy. He is at extremely high risk for postoperative infection because of body habitus and life style. Because of these reasons, we highly encouraged a rehab to reconsider and take Melvin royal s the patient. His incision this morning is healing well and there are no signs of erythema or infe ction. There have been talks to him being discharged home, however, the has no means to take c are of him at home as the patient will need an assist. Because of his imminent need for rehab, Neur osurgery is not willing to write discharge orders at this time. If there are any further questions, please feel free to contact Neurosurgery.
[2017-07-18] MEDS: Losartan Potassium 25 MG TAB PO SCH (09:17)
[2017-07-18] MEDS: clonazePAM 1 MG TAB PO SCH (09:17)
[2017-07-18] MEDS: Gabapentin 300 MG CAP PO SCH ×3 (09:17→20:41)
[2017-07-18] MEDS: Cyclobenzaprine 10 MG TAB PO PRN ×2 (09:22→22:15)
[2017-07-18] MEDS: Atorvastatin Calcium 40 MG TAB PO SCH (20:40)
[2017-07-18] MEDS: Zolpidem Tartrate 5 MG TAB PO PRN (22:14)
[2017-07-18] MEDS: Docusate 100 MG CAP PO PRN (22:16)
[2017-07-19] MEDS: Losartan Potassium 25 MG TAB PO SCH (08:49)
[2017-07-19] MEDS: Gabapentin 300 MG CAP PO SCH ×3 (08:49→21:51)
[2017-07-19] MEDS: clonazePAM 1 MG TAB PO SCH (08:49)
[2017-07-19] MEDS: Cyclobenzaprine 10 MG TAB PO PRN (12:31)
--- NOTE | 2017-07-19 18:15 | PRG ---
DATE OF SERVICE: 07/19/2017 Yayo is hospital day 20 following lumbar decompression and fusion for cauda equina syndrome. He c ontinues to demonstrate improvement in his ambulation and on exam has excellent strength in his lowe r extremity myotomes with perhaps just trace weakness in his right L5 myotome, but this may be effor t related. The main issue at this point is simply disposition for the patient. I have emphasized t his to him and his .
[2017-07-19] MEDS: Atorvastatin Calcium 40 MG TAB PO SCH (21:51)
[2017-07-20] MEDS: clonazePAM 1 MG TAB PO SCH (09:05)
[2017-07-20] MEDS: Gabapentin 300 MG CAP PO SCH ×3 (09:05→21:14)
[2017-07-20] MEDS: Losartan Potassium 25 MG TAB PO SCH (09:21)
--- NOTE | 2017-07-20 11:54 | PRG-2 ---
DATE OF SERVICE: 07/20/2017 This is Anders Cheema PA-C, dictating for Dr. Phillip Joseph. This is a subsequent inpatient progress note. Mr. Zee is now postoperative day #20, having undergone lumbar decompression and fusion for equina syndrome with Dr. Medina. He has no complaints currently. He has been continuing to ambulate. He remains at neurologic baseline with good strength in the bilateral lower extremities. He now is waiting on disposition planning. He has been walking up to 300 feet. We did discuss the possibili ty of him going home with home health. I discussed this with her nursing as well. We will check ba ck on him in the morning and hope to continue to progress towards for discharge soon.
[2017-07-20] MEDS: Atorvastatin Calcium 40 MG TAB PO SCH (21:14)
[2017-07-20] MEDS: Docusate 100 MG CAP PO PRN (21:15)
[2017-07-20] MEDS: Zolpidem Tartrate 5 MG TAB PO PRN (21:15)
--- NOTE | 2017-07-21 06:44 | PRG ---
DATE OF SERVICE: 07/21/2017 I saw Mr. Zee today. Last week we were optimistic he could transferred to inpatient rehabilitati on. It was felt that he was walking far enough that he might not qualify for the extra benefit of i npatient therapy. Now we are in the process of arranging some home health services. In the meantim e, we will check for DVT today. We will encourage mobilization and progress on the path of transfer rin or discharge.
--- NOTE | 2017-07-21 06:48 | PRG ---
DATE OF SERVICE: 07/21/2017 Mr. Zee is a 41-year-old male who I saw in his room this morning. Overnight, his vital signs hav e been stable. He is slightly tachycardic at 103. There have been no acute events overnight and hi s neurologic exam is at baseline. There have been no changes or new neurologic deficits. Mr. Mynor royal has been ambulating in the proctor. Recently he has been denied rehab x2 because of the progress he has made here in the hospital as far as distance ambulating. We will see today if the briefcase sewer or social work administrator will be able to set up some type of home health for Mr. Zee. In the meantime, b ecause of his low amount of mobility, we will get an ultrasound of the lower extremities. I encoura ged him to continue walking as much as possible today because this will help him in the long run. If there are any further questions, please feel free to contact Neurosurgery.
[2017-07-21] MEDS: Losartan Potassium 25 MG TAB PO SCH (09:14)
[2017-07-21] MEDS: clonazePAM 1 MG TAB PO SCH (09:15)
[2017-07-21] MEDS: Gabapentin 300 MG CAP PO SCH ×3 (09:15→21:28)
[2017-07-21] MEDS: Cyclobenzaprine 10 MG TAB PO PRN ×2 (09:49→21:28)
--- NOTE | 2017-07-21 10:01 | ULT ---
BILATERAL LOWER EXTREMITY VENOUS DOPPLER: Date: 07/21/17 HISTORY: Edema. COMPARISON: Doppler ultrasound dated 07/08/17. FINDINGS: Real-time Salazar scale and color Doppler with spectral analysis of bilateral lower extremity venous sy stem was performed with the linear transducer. The bilateral common femoral, femoral, proximal porti on of greater saphenous and deep femoral veins, as well as the popliteal and posterior tibial veins were interrogated. Normal flow, augmentation, and compression. Mild lower extremity edema. IMPRESSION: No deep venous thrombosis. POS: MED
[2017-07-21] MEDS: Docusate 100 MG CAP PO PRN (21:28)
[2017-07-21] MEDS: Zolpidem Tartrate 5 MG TAB PO PRN (21:28)
[2017-07-21] MEDS: Atorvastatin Calcium 40 MG TAB PO SCH (21:28)
--- NOTE | 2017-07-22 07:23 | PRG ---
DATE OF SERVICE: 07/22/2017 Mr. Zee got out of bed 5 times yesterday. He does not report getting in the hallway and walking 5 times, however. He include 5 times he got out of bed and sat in a chair. He had a venous ultraso und of the lower extremities yesterday which did not reveal any deep venous thrombosis. His vitals have been stable overnight. He is afebrile. His neurological examination is stable. My plan is to continue his recovery from decompression fusion for cauda equina syndrome and L3 pars fractures. Blair lucero is moving towards the end of the window of postoperative infection and for that I am quite happy. The next complication to avoid is failure of his instrumentation. His body habitus will put extra stress on the titanium screws and rods; therefore he has to be careful getting in and out of bed, us e log rolling technique and walk frequently and lose weight.
[2017-07-22] MEDS: Gabapentin 300 MG CAP PO SCH ×3 (09:27→20:22)
[2017-07-22] MEDS: Losartan Potassium 25 MG TAB PO SCH (09:27)
[2017-07-22] MEDS: clonazePAM 1 MG TAB PO SCH (09:27)
[2017-07-22] MEDS: Cyclobenzaprine 10 MG TAB PO PRN ×2 (09:30→21:25)
--- NOTE | 2017-07-22 09:33 | PRG ---
DATE OF SERVICE: 07/22/2017 Mr. Zee is a 41-year-old male, I saw him in his room this morning. There have been no acute even ts overnight and he has been ambulating several times a day. His venogram was negative yesterday. We discussed discharge plans for tomorrow. Today, throughout the day, he worked with physical thera py and ambulated at least 5 times in the proctor. He is to go outside in a wheelchair and ambulate traci e outside with assistance. Case management is currently setting up durable medical equipment for [facility] and home health for Mr. Zee and some assistance for home for at least the first week. There h ave been no acute changes in his neurologic status. If there are any further questions, please feel free to contact Neurosurgery.
[2017-07-22] MEDS: Atorvastatin Calcium 40 MG TAB PO SCH (20:22)
[2017-07-22] MEDS: Docusate 100 MG CAP PO PRN (20:25)
--- NOTE | 2017-07-23 07:39 | PRG ---
DATE OF SERVICE: 07/23/2017 Mr. Zee is a 41-year-old male who I saw in his room this morning. Overnight there have been no a cute events. His vital signs have been stable. Yesterday, he was visited by case management who is sitting up [facility] indigent program and papers were signed on the chart this morning for the durable medical equipment. Yesterday, he walked several times in his room and sat up in the chair to eat supper. Today, we want to make sure he is ambulating at least 5 times today in the proctor and if he could make it outside with assistance that would be the goal. We will continue to work with c ase management and as soon as everything is set up as far as durable medical equipment and home heal th care, the patient can likely be discharged home. In the meantime, he can continue to work with p hysical therapy. His weight is going to be the biggest issue as that will present a challenge for t he instrumentation in his spine to hold up. We want to make sure the patient is walking as much as possible and on a heart healthy diet to help him to lose some weight once he is discharged. If there are any further questions, please feel free to contact Neurosurgery.
--- NOTE | 2017-07-23 07:56 | PRG ---
DATE OF SERVICE: 07/23/2017 Mr. Zee is still in his hospital room this morning. He made 2 trips to the hallway for walking y and a few more attempts at getting up and walking around his room and sitting in a chair. He is becoming more mobile, slowly, with the help of physical therapy. Mr. Zee will need ongoing therapy. If he can get that therapy in a home setting, it may be a ольга sonable option since our colleagues in Physical Medicine Rehabilitation field is doing too well for inpatient rehabilitation.
[2017-07-23] MEDS: Cyclobenzaprine 10 MG TAB PO PRN ×2 (09:00→20:31)
[2017-07-23] MEDS: clonazePAM 1 MG TAB PO SCH (09:00)
[2017-07-23] MEDS: Losartan Potassium 25 MG TAB PO SCH (09:00)
[2017-07-23] MEDS: Gabapentin 300 MG CAP PO SCH ×3 (09:00→20:30)
[2017-07-23] MEDS: Atorvastatin Calcium 40 MG TAB PO SCH (20:30)
[2017-07-23] MEDS: Zolpidem Tartrate 5 MG TAB PO PRN (20:31)
[2017-07-23] MEDS: Docusate 100 MG CAP PO PRN (20:31)
--- NOTE | 2017-07-24 07:01 | PRG ---
DATE OF SERVICE: 07/24/2017 Mr. Zee is a 41-year-old male who I saw in his room this morning. His incision is clean, dry, an d intact. It looks like it is healing well. He was able to ambulate 3 times yesterday around the [facility] third floor. His vital signs have been stable overnight and there are no new neurologic defic its on exam. Case management is working to set up a durable medical equipment at home for Mr. Mynor royal as well as home health care and physical therapy at home. He continued to work with physical biochemist apy and the goal is to ambulate 5 times today. He is tolerating a regular diet and his pain is well controlled with pain medication. If there are any further questions, please feel free to contact Neurosurgery as we wait for a more d efinitive disposition set up from case management and home placement.
--- NOTE | 2017-07-24 07:35 | PRG ---
DATE OF SERVICE: 07/24/2017 Mr. Zee tells me that he graduated from physical therapy yesterday with advanced as walking progr am to standby assist and ask him to walk around flow the floor 5 times a day. That was my recommend ation from days ago. I think he will be able to do it today. Arrangements are being made for a hos pital bed, a walker and some grab bars to be installed at his home. Once his home is safe to accept him, he can be discharged.
[2017-07-24] MEDS: clonazePAM 1 MG TAB PO SCH (09:33)
[2017-07-24] MEDS: Gabapentin 300 MG CAP PO SCH ×3 (09:33→21:42)
[2017-07-24] MEDS: Cyclobenzaprine 10 MG TAB PO PRN ×2 (09:33→23:19)
[2017-07-24] MEDS: Losartan Potassium 25 MG TAB PO SCH (12:10)
[2017-07-24] MEDS: Atorvastatin Calcium 40 MG TAB PO SCH (21:42)
--- NOTE | 2017-07-25 07:36 | PRG ---
DATE OF SERVICE: 07/25/2017 Mr. Zee is a 41-year-old male I saw in his room this morning. There have been no acute changes t o his neuro status overnight. He continues to work with physical therapy throughout the day and am bulate several times in the hallway. He has a regular diet and his pain is well controlled with massiel n medication. Case management and social work has been working to set up DME equipment for home. W hen a bed has been confirmed today he can be discharged. We will have him follow up with Dr. Giuliano mckenzie in approximately 4 weeks with upright AP lateral x-rays of the lumbar spine to assess the fusion . His incision is clean, dry, and intact. Incisional hygiene instructions were reviewed with him t his morning as well as his restrictions and limitations with bending, lifting, pushing and pulling w eight. He is encouraged to ambulate as much as possible and to keep his incision clean every day. Home health has been sit up and DME equipment has been set up as well. If there are any further questions, please feel free to contact Neurosurgery.
--- NOTE | 2017-07-25 07:47 | PRG ---
DATE OF SERVICE: 07/25/2017 I saw Mr. Zee in his hospital room this morning. He is resting comfortably as I entered the room , but wakes easily. I do not find any new changes on his neurological examination. When Mr. Zee has a hospital bed and a walker at home and there are some grab bars near his toilet , he can be discharged home.
[2017-07-25] MEDS: Losartan Potassium 25 MG TAB PO SCH (08:36)
[2017-07-25] MEDS: Gabapentin 300 MG CAP PO SCH ×2 (08:36→15:46)
[2017-07-25] MEDS: clonazePAM 1 MG TAB PO SCH (08:36)
[2017-07-25 16:49] VITALS: BP 119/62; TEMP 96.6
== END 2017-07-25 17:11 | disposition home health service (06) | DRG 460 ==
LOC: ERS 17:17 → SDC 23:18 → CCU 06-29 05:14 → SURG B 06-30 10:11 → SURG A 07-01 13:12 → SURG B 07-01 13:30
PROVIDERS: ADMIT Neurological Surgery; ATTEND Neurological Surgery
PROC: 0SG00AJ Fusion of Lumbar Vertebral Joint with Interbody Fusion Device, Posterior Approach, Anterior Column, Open Approach (ICD-10-PCS; principal; 2017-06-29)
PROC: 01NB0ZZ Release Lumbar Nerve, Open Approach (ICD-10-PCS; 2017-06-29)
PROC: 0QB00ZZ Excision of Lumbar Vertebra, Open Approach (ICD-10-PCS; 2017-06-29)
DX: M48.061 Spinal stenosis, lumbar region without neurogenic claudication (principal); Z68.42 Body mass index [BMI] 45.0-49.9, adult; S32.038A Other fracture of third lumbar vertebra, initial encounter for closed fracture; G83.4 Cauda equina syndrome; E66.01 Morbid (severe) obesity due to excess calories; R32 Unspecified urinary incontinence; R15.9 Full incontinence of feces; E78.5 Hyperlipidemia, unspecified; Z88.8 Allergy status to other drugs, medicaments and biological substances; I10 Essential (primary) hypertension; M19.90 Unspecified osteoarthritis, unspecified site; Z86.711 Personal history of pulmonary embolism
CPT/HCPCS: 36415; 36416; 62304; 71275; 72131; 76000; 80048; 80053; 82553; 82805; 84484; 85007; 85025; 85027; 85610; 85730; 86850; 86900; 86901; 90471; 90682; 93005; 93970; 94002; 96374; 96376; A4216; C1713; C1768; G0008; G8978-GP-CK; G8978-GP-CM; G8979-GP-CI; G8979-GP-CK; G8987-GO-CJ; G8987-GO-CM; G8988-GO-CI; G8988-GO-CJ; J0670; J1170; J2001; J2250; J2270; J2550; J2704; J3010; J3370; J3490; P9045; Q2036

== ENCOUNTER 2017-08-22 16:54 | Emergency (ER) | payer OTHER, SELFPAY ==
[2017-08-22 17:36] LABS: #Eosinphils 0.1 thou/uL (0.0-0.7); #Lymphocytes 1.9 thou/uL (1.20-3.40); #Monocytes 0.4 thou/uL (0.11-0.59); #Neutrophils 6.4 thou/uL (1.40-6.50); %Basophils 0.5 % (0.0-1.0); %Eosinophils 0.7 % (0.0-10.0); %Lymphocytes 21.7 % (21.0-51.0); %Monocytes 4.2 % (0.0-10.0); Hematocrit 38.5 % (42.0-52.0); Mean Platelet Volume 6.8 fL (7.4-10.4); Red Blood Cell (RBC) Count 4.42 mill/uL (4.70-6.10); White Blood Cell (WBC) Count 8.8 thou/uL (4.8-10.8)
[2017-08-22 17:56] LABS: ALT (SGPT) 31 U/L (8-55); AST (SGOT) 20 U/L (5-34); Alkaline Phosphatase 81 U/L (40-150); Anion Gap 14 mmol/L (10-20); BUN (Urea Nitrogen) 9 mg/dL (8.9-20.6); Bilirubin, Total 0.7 mg/dL (0.2-1.2); Calc. Creatinine Clearance 0 mL/min (70-130); Calcium 9.7 mg/dL (7.8-10.44); Carbon Dioxide 24 mmol/L (22-29); Chloride 105 mmol/L (98-107); Estimated GFR-MDRD Greater than 90
[2017-08-22 18:04] LABS: Bilirubin Negative (Negative); Blood, Urine Negative (Negative); Glucose, Urine (Dipstick) Negative (Negative); Ketone, Urine Negative (Negative); Nitrite Negative (Negative); Protein, Urine (Dipstick) Negative (Neg-Trace); Urobilinogen 0.2 mg/dL (0.2-1.0)
[2017-08-22] MEDS ORDERED: Promethazine HCl 25 MG/ML VIAL ONE ×2 (18:43→20:04)
[2017-08-22] MEDS ORDERED: Morphine 4 MG/ML VIAL ONE (19:53)
[2017-08-22] MEDS ORDERED: Ondansetron HCl/PF 4 MG/2 ML Vial ONE (19:53)
== END 2017-08-22 20:42 | disposition home or self-care (01) ==
LOC: ERS 16:54
DX: E86.0 Dehydration (principal); R11.2 Nausea with vomiting, unspecified; M54.5 Low back pain; E78.5 Hyperlipidemia, unspecified; I10 Essential (primary) hypertension; M19.90 Unspecified osteoarthritis, unspecified site; M48.00 Spinal stenosis, site unspecified
CPT/HCPCS: 36415; 80053; 81003; 85025; 96361; 96372; 96374; 96375; J2270; J2405; J2550

== ENCOUNTER 2017-08-24 12:27 | Inpatient (IN) | payer SELFPAY ==
[2017-08-24] MEDS ORDERED: ISOVUE-370 76%-LOCM 1 ML ONE (14:43)
[2017-08-24 15:37] LABS: #Eosinphils 0.1 thou/uL (0.0-0.7); #Lymphocytes 2.1 thou/uL (1.20-3.40); #Monocytes 0.5 thou/uL (0.11-0.59); #Neutrophils 8.9 thou/uL (1.40-6.50); %Basophils 0.2 % (0.0-1.0); %Eosinophils 0.5 % (0.0-10.0); %Lymphocytes 18.3 % (21.0-51.0); %Monocytes 4.6 % (0.0-10.0); Red Blood Cell (RBC) Count 4.46 mill/uL (4.70-6.10); White Blood Cell (WBC) Count 11.6 thou/uL (4.8-10.8)
[2017-08-24] MEDS ORDERED: Morphine 10 MG/ML VIAL ONE (15:39)
[2017-08-24 16:00] LABS: ALT (SGPT) 23 U/L (8-55); AST (SGOT) 14 U/L (5-34); Alkaline Phosphatase 77 U/L (40-150); Anion Gap 15 mmol/L (10-20); BUN (Urea Nitrogen) 10 mg/dL (8.9-20.6); Bilirubin, Total 0.6 mg/dL (0.2-1.2); CK (CPK) 116 U/L (30-200); Calc. Creatinine Clearance 0 mL/min (70-130); Calcium 9.1 mg/dL (7.8-10.44); Carbon Dioxide 21 mmol/L (22-29); Chloride 106 mmol/L (98-107); Estimated GFR-MDRD 81; Globulin 3.6 g/dL (2.4-3.5); Lipase 34 U/L (8-78); Protein, Total 7.5 g/dL (6.0-8.3)
[2017-08-24 16:04] LABS: Troponin I Less than 0.010 ng/mL (< 0.028)
--- NOTE | 2017-08-24 16:08 | CT ---
CT OF BRAIN PERFORMED WITHOUT CONTRAST ENHANCEMENT: Date: 08/24/17 HISTORY: Headache status post fall. COMPARISON: 03/12/16. FINDINGS: The ventricular and cisternal system is within normal limits. There are no signs of intracerebral hem orrhage or extra-axial fluid collections. The mastoid air cells and visualized sinuses are clear. IMPRESSION: No acute intracranial abnormalities. POS: [facility]
--- NOTE | 2017-08-24 16:21 | CT ---
CT OF CERVICAL SPINE PERFORMED WITHOUT CONTRAST ENHANCEMENT: Date: 08/24/17 HISTORY: Neck pain status post fall. FINDINGS: The vertebral bodies are normal in height. There are degenerative osteophytic changes and disc narrow ing at the C3-4, C5-6, and C6-7 level. There are also some degenerative facet changes. The facets are in normal alignment. At C3-4, there is some mild canal stenosis. The osteophytic changes at the C5-6 level also are associ ated with a mild degree of canal stenosis with asymmetric left uncovertebral changes causing left-arnie ed foraminal narrowing. The canal also appears to be mildly to moderately stenotic with posterior ost eophytic bar at C5-6. This is causing more significant narrowing on the right side with right-sided f oraminal stenosis. There is no CT evidence for fracture. 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 No frac tures identified. POS: [facility]
--- NOTE | 2017-08-24 16:23 | CT ---
CT OF CHEST AND ABDOMEN AND PELVIS AND THORACIC SPINE AND LUMBAR SPINE PERFORMED WITH CONTRAST ENHANC EMENT: Date: 08/24/17 HISTORY: Patient status post fall with neck, chest, and back pain. FINDINGS: The lungs are clear of any infiltrative process. There are no signs of pneumothorax. There are no rib fractures identified. Mediastinal structures appear unremarkable. The thoracic aorta is normal in caliber. CT of abdomen was performed with contrast enhancement. There are fatty changes of the liver. The sple en and pancreas regions are unremarkable. The gallbladder has been removed. Right and left adrenal glands, and right and left kidneys are normal in appearance. There are no sign s of free fluid or bowel wall injury. CT of pelvis was performed with contrast enhancement. No adenopathy, mass, or free fluid. The appendi x region is unremarkable. The pelvic ring is intact without evidence of fracture. CT of thoracic spine obtained. Arthritic changes noted without any acute compression injury. CT of lumbar spine obtained. Postoperative changes at L3-4 level noted. No signs of any acute injury. IMPRESSION: 1. No acute findings of the chest, abdomen, or pelvis. No signs of solid organ injury. 2. Fatty changes of the liver. 3. Postop cholecystectomy change. POS: [facility]
[2017-08-24] MEDS ORDERED: Ondansetron ODT 4 MG TAB SL PRN (18:43)
[2017-08-24] MEDS ORDERED: Sodium Chloride 0.9% 1,000 ML IV SCH (18:43)
[2017-08-24] MEDS ORDERED: Ondansetron HCl/PF 4 MG/2 ML Vial IVP PRN (18:43)
[2017-08-24] MEDS ORDERED: Ondansetron ODT 4 MG TAB PO PRN (18:48)
[2017-08-24] MEDS ORDERED: Zolpidem Tartrate 5 MG TAB PO PRN (18:48)
[2017-08-24] MEDS ORDERED: HYDROcodone/Acetaminophen 5/325 mg Tablet PO PRN (18:48)
--- NOTE | 2017-08-24 20:03 | HP ---
HISTORY OF PRESENT ILLNESS: Mr. Zee is a 41-year-old male. He came to the ER earlier to day after he passed out and fell. According to the patient, for the last 3 days, he has been experim enting some severe diarrhea along with vomiting. Also, had been having some fever this morning when EMS came to his house, he claimed that blood pressure was not recordable. He was brought to the ER f or management. We have also to mention that he claims that he was dizzy, lightheaded prior to this f all. PAST MEDICAL HISTORY: He is known to have a history of hypertension, hyperlipidemia, and he was twila julio for pulmonary embolism in the past. PAST SURGICAL HISTORY: Remarkable for cholecystectomy and back laminectomy. ALLERGIES: He has allergies to COMPAZINE, LYRICA, NONSTEROIDAL REGLAN and TRAMADOL and also ZOFRAN. SOCIAL HISTORY: He denies any history of cigarette smoking. He denies ETOH abuse. He denies drug a buse. FAMILY HISTORY: Reviewed and is not contributory. MEDICATIONS: Prior to admission he was on Flexeril, morphine, gabapentin, losartan, promethazine, Am madi, clonazepam, and lorazepam. REVIEW OF SYSTEMS: Constitutional: Admits to weakness, fever. HEENT: No headache. No ocular pain, no sore throat, no rhinorrhea, no earache, no epistaxis. Neck: No neck pain, no neck stiffness. Cardiovascular: No shortness of breath. No chest pain. As mentioned earlier he was dizzy, lightheaded prior to his syn copal episode. Pulmonary: No coughing. Gastrointestinal: Admits to diarrhea, vomiting, abdominal pain. Genitourinary: No dysuria, no hematuria. Endocrinology: No heat or cold intolerance. No po lyuria, polydipsia or polyphagia. Hematology: No abnormal bleeding, no ecchymosis. Lymphatics: No palpable lymphadenopathy, no painful lymphadenopathy. Allergies: No hayfever. Skin: No rash. No itching. Musculoskeletal: He has chronic backache. Psychiatric: Admits to anxiety. Neurologic: Denies seizure. PHYSICAL EXAMINATION: GENERAL: At the current time. He is alert, oriented, and in no distress. VITAL SIGNS: Showed temperature of 98.6, pulse rate of 79, respiratory rate 22, blood pressure of 14 3/80. His head is normocephalic and atraumatic. Both his pupils are equal and reacting. Ears and n ose normal. Oral mucosa is moist. Pharyngeal area is clear. NECK: Supple. There is no distention of the jugular vein. No lymphadenopathy felt. Thyroid gland not palpable. There is no carotid bruit. CHEST: Symmetrical with regular S1, S2. LUNGS: Clear. ABDOMEN: Soft. Bowel sounds are heard. Could not appreciate any organomegaly. There is no focal a ольга of tenderness. EXTREMITIES: Limbs show no edema. NEUROLOGIC: He moves all extremities. LABORATORY DATA: CBC showed WBC of 11.6, hemoglobin of 12.3, hematocrit of 39, MCV of 87.5, platelet of 327. Chemistry and electrolytes show sodium of 138, potassium of 4, chloride 106, CO2 of 21, BUN 10, creatinine 1.0, glucose 99, calcium 9.1, total bilirubin 0.6, AST 14, ALT 23, alkaline phosphata se 77. CPK 116, albumin 3.9, lipase 34, globulin 3.6. Brain/head CT, abdomen, chest, and pelvis CT, cervical spine CT, all did not show any acute injury. ASSESSMENT AND PLAN: This is a 41-year-old man with history of hypertension, hyperlipidemia , morbid obesity who has any history of diarrhea for the last 3 days or so, diarrhea, accompanied by fever, vomiting, came in after he fell as a result of syncopal episode, suspect dehydration. We will hydrate the patient vigorously. We will send his stools for Clostridium difficile, WBC and culture and also we will start him on Flagyl while stool examinations are in progress and we also will send h is stool for Clostridium difficile. The patient will be admitted to the medical floor. Further eval uation and management will depend on the course of his hospitalization and his response to therapy.
[2017-08-24 20:28] VITALS: BMI 44.8
[2017-08-24] MEDS: Sodium Chloride 0.9% 1,000 ML IV SCH (20:28)
[2017-08-24] MEDS ORDERED: metroNIDAZOLE 500 MG TAB PO SCH (21:00)
[2017-08-24] MEDS ORDERED: Morphine PF 1 MG/ML SYR IVP PRN (22:14)
[2017-08-24] MEDS ORDERED: metroNIDAZOLE 500 MG in Premix Bag 1 BAG IVPB SCH (22:15)
[2017-08-24] MEDS: Promethazine HCl 25 MG/ML VIAL SLOW IVP PRN (22:38)
[2017-08-24] MEDS: Famotidine/PF 20 mg/2ml Vial SLOW IVP SCH (22:42)
[2017-08-25] MEDS: Enoxaparin Sodium 40 MG/0.4 ML SYRINGE SC SCH (01:59)
[2017-08-25] MEDS: Sodium Chloride 0.9% 1,000 ML IV SCH ×4 (01:59→18:47)
[2017-08-25] MEDS: Morphine 4 MG/ML VIAL SLOW IVP PRN ×5 (02:34→23:43)
[2017-08-25 05:38] LABS: Anion Gap 11 mmol/L (10-20); BUN (Urea Nitrogen) 11 mg/dL (8.9-20.6); Calc. Creatinine Clearance 247 mL/min (70-130); Calcium 8.6 mg/dL (7.8-10.44); Carbon Dioxide 24 mmol/L (22-29); Chloride 107 mmol/L (98-107); Estimated GFR-MDRD 83
[2017-08-25] MEDS: metroNIDAZOLE 500 MG in Premix Bag 1 BAG IVPB SCH ×3 (05:56→21:00)
[2017-08-25] MEDS: Promethazine HCl 25 MG/ML VIAL SLOW IVP PRN ×3 (08:16→20:55)
[2017-08-25] MEDS: Atorvastatin Calcium 40 MG TAB PO SCH ×2 (08:16→08:44)
[2017-08-25] MEDS: Famotidine/PF 20 mg/2ml Vial SLOW IVP SCH ×2 (08:16→20:54)
[2017-08-25] MEDS ORDERED: Cyclobenzaprine 10 MG TAB PO PRN (10:44)
[2017-08-25] MEDS ORDERED: Potassium Chloride 20 MEQ TAB PO SCH (11:15)
[2017-08-25] MEDS ORDERED: Lorazepam 1 MG TAB PO PRN (11:16)
[2017-08-25] MEDS: Gabapentin 400 MG CAP PO SCH ×2 (13:40→21:31)
[2017-08-25] MEDS: Morphine ER 30 MG TAB PO SCH ×2 (13:40→21:31)
--- NOTE | 2017-08-25 16:58 | PDOC.PN ---
- Subjective Encounter Start Date: 08/25/17 Encounter Start Time: 09:40 Pt seen for followup re: nausea and vomiting. Denies chest pain, fevers or chills. Nausea+. No loose stools since yesterday. - Objective Resuscitation Status: Resuscitation Status FULL:Full Resuscitation MAR Reviewed: Yes Vital Signs & Weight: Vital Signs (12 hours) Temp Pulse Resp BP BP Pulse Ox 08/25/17 12:00 97.8 F 72 20 132/72 96 08/25/17 08:00 98.1 F 76 22 H 148/73 H 96 08/25/17 05:50 98.5 F 77 22 H 132/77 98 Weight Admit Weight 387 lb 11.2 oz Weight 387 lb 11.2 oz I&O: 08/24/17 08/25/17 08/26/17 06:59 06:59 06:59 Intake Total 1650 Output Total 750 Balance 900 Result Diagrams: 08/24/17 15:30 08/25/17 04:30 Phys Exam - Physical Examination Morbid obesity HEENT: PERRLA, moist MMs, sclera anicteric, oral pharynx no lesions Neck: no nodes, no JVD, supple, full ROM Respiratory: no wheezing, no rales, no rhonchi, clear to auscultation bilateral Cardiovascular: RRR, no significant murmur, no rub Gastrointestinal: soft, non-tender, no distention, positive bowel sounds Musculoskeletal: pulses present, edema present Neurological: non-focal, normal sensation, moves all 4 limbs Lymphatic: no nodes Psychiatric: normal affect, A&O x 3 Dx/Plan (1) Diarrhea Code(s): R19.7 - DIARRHEA, UNSPECIFIED Status: Acute (2) Nausea and vomiting Code(s): R11.2 - NAUSEA WITH VOMITING, UNSPECIFIED Status: Acute (3) Dyslipidemia Code(s): E78.5 - HYPERLIPIDEMIA, UNSPECIFIED Status: Chronic (4) HTN (hypertension) Code(s): I10 - ESSENTIAL (PRIMARY) HYPERTENSION Status: Chronic Qualifiers: Hypertension type: essential hypertension Qualified Code(s): I10 - Essential (primary) hypertension (5) Morbid obesity with BMI of 45.0-49.9, adult Code(s): E66.01 - MORBID (SEVERE) OBESITY DUE TO EXCESS CALORIES; Z68.42 - BODY MASS INDEX (BMI) 45.0-49.9, ADULT Status: Chronic - Plan plan discussed w/ family, PT/OT, out of bed/ambulate, DVT proph w/lovenox * . Await stool studies, continue metronidazole. Monitor vital signs, titrate antihypertensives as needed. Pt will need rehab eval (was originally to be admitted to Rehab today, per pt). Review of Systems - Review of Systems Constitutional: negative: Fever, Chills, Sweats, Weakness, Malaise Respiratory: negative: Cough, Dry, Shortness of Breath, Hemoptysis, SOB with Excertion, Pleuritic Pain, Sputum, Wheezing Cardiovascular: negative: Chest Pain, Palpitations, Orthopnea, Paroxysmal Noc. Dyspnea, Edema, Light Headedness Gastrointestinal: Nausea, Diarrhea. negative: Vomiting, Abdominal Pain, Constipation, Melena, Hematochezia Genitourinary: negative: Dysuria, Frequency, Incontinence, Hematuria, Retention , Other - Medications/Allergies Allergies/Adverse Reactions: Allergies Allergy/AdvReac Type Severity Reaction Status Date / Time ketorolac tromethamine Allergy Verified 08/24/17 20:17 [From Toradol] metoclopramide [From Reglan] Allergy Verified 08/24/17 20:17 NSAIDS (Non-Steroidal Allergy Verified 08/24/17 20:17 Anti-Inflamma ondansetron Allergy Hives Verified 08/24/17 20:18 [From Zofran (as hydrochloride)] pregabalin [From Lyrica] Allergy Verified 08/24/17 20:17 prochlorperazine Allergy Hives Verified 08/24/17 20:18 [From Compazine] tramadol Allergy Verified 08/24/17 20:17 Medications: Current Medications Hydrocodone Bitart/Acetaminophen ([place] 5/325) 1 tab PO Q4H PRN PRN Reason: Moderate Pain (4-6) Atorvastatin Calcium (Lipitor) 40 mg PO DAILY [facility] Last Admin: 08/25/17 08:44 Dose: Not Given Clonazepam (Klonopin) 1 mg PO DAILY [facility] Cyclobenzaprine HCl (Flexeril) 10 mg PO TID PRN PRN Reason: Pain Enoxaparin Sodium (Lovenox) 40 mg SC 0900 [facility] Last Admin: 08/25/17 01:59 Dose: Not Given Famotidine (Pepcid) 20 mg SLOW IVP Q12HR [facility] Last Admin: 08/25/17 08:16 Dose: 20 mg Gabapentin (Neurontin) 1,200 mg PO TID [facility] Last Admin: 08/25/17 13:40 Dose: Not Given Sodium Chloride (Normal Saline 0.9%) 1,000 mls @ 150 mls/hr IV .Q6H40M [facility] Last Admin: 08/25/17 12:35 Dose: 1,000 mls Metronidazole 500 mg/ Device 100 mls @ 100 mls/hr IVPB Q8HR [facility] Last Admin: 08/25/17 12:55 Dose: 100 mls Influenza Virus Vaccine (Fluzone Quad [id number] Syringe) 0.5 ml IM .ONCE ONE Stop: 08/26/17 09:01 Lorazepam (Ativan) 1 mg PO Q8H PRN PRN Reason: Anxiety Losartan Potassium (Cozaar) 100 mg PO DAILY [facility] Morphine Sulfate (Morphine) 2 mg SLOW IVP Q4H PRN PRN Reason: Pain Last Admin: 08/25/17 08:16 Dose: 2 mg Morphine Sulfate (Ms Contin) 30 mg PO Q8HR [facility] Last Admin: 08/25/17 13:40 Dose: Not Given Morphine Sulfate (Morphine) 4 mg SLOW IVP Q6H PRN PRN Reason: PAIN 2ND LINE Last Admin: 08/25/17 12:53 Dose: 4 mg Promethazine HCl (Phenergan) 6.25 mg SLOW IVP Q6H PRN PRN Reason: Nausea/Vomiting Last Admin: 08/25/17 14:10 Dose: 6.25 mg Promethazine HCl (Phenergan) 25 mg PO Q4H PRN PRN Reason: Nausea Sodium Chloride (Flush - Normal Saline) 10 ml IVF Q12HR [facility] Last Admin: 08/25/17 08:41 Dose: Not Given Sodium Chloride (Flush - Normal Saline) 10 ml IVF PRN PRN PRN Reason: Saline Flush Zolpidem Tartrate (Ambien) 5 mg PO HSPRN PRN PRN Reason: Insomnia
[2017-08-26] MEDS: Sodium Chloride 0.9% 1,000 ML IV SCH ×4 (02:44→20:16)
[2017-08-26] MEDS: Promethazine HCl 25 MG/ML VIAL SLOW IVP PRN (02:46)
[2017-08-26] MEDS: Morphine 4 MG/ML VIAL SLOW IVP PRN ×4 (03:50→17:06)
[2017-08-26] MEDS: Morphine ER 30 MG TAB PO SCH ×3 (06:13→21:54)
[2017-08-26] MEDS: metroNIDAZOLE 500 MG in Premix Bag 1 BAG IVPB SCH (06:14)
[2017-08-26] MEDS: clonazePAM 1 MG TAB PO SCH ×2 (08:35→17:15)
[2017-08-26] MEDS: Atorvastatin Calcium 40 MG TAB PO SCH (08:35)
[2017-08-26] MEDS: Gabapentin 400 MG CAP PO SCH ×3 (08:35→20:17)
[2017-08-26] MEDS: Famotidine/PF 20 mg/2ml Vial SLOW IVP SCH ×2 (08:35→20:16)
[2017-08-26] MEDS: Losartan Potassium 25 MG TAB PO SCH (08:35)
[2017-08-26] MEDS: Enoxaparin Sodium 40 MG/0.4 ML SYRINGE SC SCH (08:48)
[2017-08-26] MEDS ORDERED: FLU VACC QS2017-18 36 mo. & older 0.5 ML SYRINGE IM ONE (09:00)
--- NOTE | 2017-08-26 09:59 | PDOC.PN ---
- Subjective Encounter Start Date: 08/26/17 Encounter Start Time: 09:00 Pt seen for followup re: nausea and vomiting. Has nausea, better since yesterday. No diarrhea. No fevers or chills. - Objective Resuscitation Status: Resuscitation Status FULL:Full Resuscitation MAR Reviewed: Yes Vital Signs & Weight: Vital Signs (12 hours) Temp Pulse Resp BP BP Pulse Ox 08/26/17 08:26 98.2 F 69 16 129/71 96 08/26/17 08:00 98.3 F 69 18 08/26/17 04:00 98.3 F 69 18 146/76 H 95 08/26/17 00:00 98.4 F 68 18 139/70 98 Weight Admit Weight 387 lb 11.2 oz Weight 387 lb 11.2 oz I&O: 08/25/17 08/26/17 08/27/17 06:59 06:59 06:59 Intake Total 1650 Output Total 750 Balance 900 Result Diagrams: 08/24/17 15:30 08/25/17 04:30 Phys Exam - Physical Examination Morbid obesity HEENT: PERRLA, moist MMs, sclera anicteric, oral pharynx no lesions Neck: no nodes, no JVD, supple, full ROM Respiratory: no wheezing, no rales, no rhonchi, wheezing present Cardiovascular: RRR, no rub Gastrointestinal: soft, non-tender, no distention, positive bowel sounds Musculoskeletal: pulses present Neurological: moves all 4 limbs Lymphatic: no nodes Psychiatric: normal affect, A&O x 3 Skin: no rash, normal turgor, cap refill <2 seconds Dx/Plan (1) Nausea and vomiting Code(s): R11.2 - NAUSEA WITH VOMITING, UNSPECIFIED Status: Acute (2) Dyslipidemia Code(s): E78.5 - HYPERLIPIDEMIA, UNSPECIFIED Status: Chronic (3) HTN (hypertension) Code(s): I10 - ESSENTIAL (PRIMARY) HYPERTENSION Status: Chronic Qualifiers: Hypertension type: essential hypertension Qualified Code(s): I10 - Essential (primary) hypertension (4) Morbid obesity with BMI of 45.0-49.9, adult Code(s): E66.01 - MORBID (SEVERE) OBESITY DUE TO EXCESS CALORIES; Z68.42 - BODY MASS INDEX (BMI) 45.0-49.9, ADULT Status: Chronic (5) Diarrhea Code(s): R19.7 - DIARRHEA, UNSPECIFIED Status: Resolved - Plan PT/OT, out of bed/ambulate, DVT proph w/lovenox * . No diarrhea, unclear whether due to C. diff or viral gastroenteritis. Stop metronidazole and observe. Ambulate pt. Will need Inpt rehab on discharge. Review of Systems - Review of Systems Constitutional: negative: Fever, Chills, Sweats, Weakness, Malaise Respiratory: negative: Cough, Dry, Shortness of Breath, Hemoptysis, SOB with Excertion, Pleuritic Pain, Sputum, Wheezing Cardiovascular: negative: Chest Pain, Palpitations, Orthopnea, Paroxysmal Noc. Dyspnea, Edema, Light Headedness Gastrointestinal: negative: Nausea, Vomiting, Abdominal Pain, Diarrhea, Constipation, Melena, Hematochezia Genitourinary: negative: Dysuria, Frequency, Incontinence, Hematuria, Retention - Medications/Allergies Allergies/Adverse Reactions: Allergies Allergy/AdvReac Type Severity Reaction Status Date / Time ketorolac tromethamine Allergy Verified 08/24/17 20:17 [From Toradol] metoclopramide [From Reglan] Allergy Verified 08/24/17 20:17 NSAIDS (Non-Steroidal Allergy Verified 08/24/17 20:17 Anti-Inflamma ondansetron Allergy Hives Verified 08/24/17 20:18 [From Zofran (as hydrochloride)] pregabalin [From Lyrica] Allergy Verified 08/24/17 20:17 prochlorperazine Allergy Hives Verified 08/24/17 20:18 [From Compazine] tramadol Allergy Verified 08/24/17 20:17 Medications: Current Medications Hydrocodone Bitart/Acetaminophen ([place] 5/325) 1 tab PO Q4H PRN PRN Reason: Moderate Pain (4-6) Atorvastatin Calcium (Lipitor) 40 mg PO DAILY [facility] Last Admin: 08/26/17 08:35 Dose: 40 mg Clonazepam (Klonopin) 1 mg PO DAILY [facility] Cyclobenzaprine HCl (Flexeril) 10 mg PO TID PRN PRN Reason: Pain Enoxaparin Sodium (Lovenox) 40 mg SC 0900 [facility] Last Admin: 08/26/17 08:48 Dose: Not Given Famotidine (Pepcid) 20 mg SLOW IVP Q12HR [facility] Last Admin: 08/26/17 08:35 Dose: 20 mg Gabapentin (Neurontin) 1,200 mg PO TID [facility] Last Admin: 08/26/17 08:35 Dose: 1,200 mg Sodium Chloride (Normal Saline 0.9%) 1,000 mls @ 150 mls/hr IV .Q6H40M [facility] Last Admin: 08/26/17 08:46 Dose: 1,000 mls Metronidazole 500 mg/ Device 100 mls @ 100 mls/hr IVPB Q8HR [facility] Last Admin: 08/26/17 06:14 Dose: 100 mls Lorazepam (Ativan) 1 mg PO Q8H PRN PRN Reason: Anxiety Losartan Potassium (Cozaar) 100 mg PO DAILY [facility] Last Admin: 08/26/17 08:35 Dose: 100 mg Morphine Sulfate (Morphine) 2 mg SLOW IVP Q4H PRN PRN Reason: Pain Last Admin: 08/26/17 08:46 Dose: 2 mg Morphine Sulfate (Ms Contin) 30 mg PO Q8HR [facility] Last Admin: 08/26/17 06:13 Dose: Not Given Morphine Sulfate (Morphine) 4 mg SLOW IVP Q6H PRN PRN Reason: PAIN 2ND LINE Last Admin: 08/26/17 03:50 Dose: 4 mg Promethazine HCl (Phenergan) 6.25 mg SLOW IVP Q6H PRN PRN Reason: Nausea/Vomiting Last Admin: 08/26/17 02:46 Dose: 6.25 mg Promethazine HCl (Phenergan) 25 mg PO Q4H PRN PRN Reason: Nausea Sodium Chloride (Flush - Normal Saline) 10 ml IVF Q12HR [facility] Last Admin: 08/26/17 08:36 Dose: Not Given Sodium Chloride (Flush - Normal Saline) 10 ml IVF PRN PRN PRN Reason: Saline Flush Zolpidem Tartrate (Ambien) 5 mg PO HSPRN PRN PRN Reason: Insomnia
[2017-08-27] MEDS: Sodium Chloride 0.9% 1,000 ML IV SCH ×3 (05:24→17:10)
[2017-08-27] MEDS: Morphine ER 30 MG TAB PO SCH ×2 (05:25→14:09)
[2017-08-27] MEDS: Losartan Potassium 25 MG TAB PO SCH (08:21)
[2017-08-27] MEDS: Atorvastatin Calcium 40 MG TAB PO SCH (08:22)
[2017-08-27] MEDS: Gabapentin 400 MG CAP PO SCH ×2 (08:22→14:10)
[2017-08-27] MEDS: Famotidine/PF 20 mg/2ml Vial SLOW IVP SCH (08:22)
[2017-08-27] MEDS: Enoxaparin Sodium 40 MG/0.4 ML SYRINGE SC SCH (08:26)
[2017-08-27] MEDS: Morphine 4 MG/ML VIAL SLOW IVP PRN ×2 (09:19→17:02)
[2017-08-27] MEDS: clonazePAM 1 MG TAB PO SCH (09:21)
[2017-08-27 11:21] VITALS: BP 121/60; TEMP 98.2
[2017-08-27 15:07] LABS: #Eosinphils 0.2 thou/uL (0.0-0.7); #Lymphocytes 1.8 thou/uL (1.20-3.40); #Monocytes 0.4 thou/uL (0.11-0.59); #Neutrophils 4.6 thou/uL (1.40-6.50); %Basophils 0.2 % (0.0-1.0); %Eosinophils 2.7 % (0.0-10.0); %Lymphocytes 26.2 % (21.0-51.0); %Monocytes 5.9 % (0.0-10.0); Hematocrit 35.7 % (42.0-52.0); Red Blood Cell (RBC) Count 4.12 mill/uL (4.70-6.10)
[2017-08-27 15:26] LABS: Anion Gap 11 mmol/L (10-20); BUN (Urea Nitrogen) 8 mg/dL (8.9-20.6); Calc. Creatinine Clearance 247 mL/min (70-130); Calcium 8.9 mg/dL (7.8-10.44); Carbon Dioxide 24 mmol/L (22-29); Chloride 106 mmol/L (98-107); Estimated GFR-MDRD 83
[2017-08-27] MEDS: Promethazine HCl 25 MG/ML VIAL SLOW IVP PRN (17:01)
--- NOTE | 2017-08-27 23:04 | DIS ---
DATE OF ADMISSION: 08/24/2017 DATE OF DISCHARGE: 08/27/2017 PRIMARY CARE PROVIDER: Edin Turk M.D. DISCHARGE DIAGNOSES: 1. Gastroenteritis. 2. Fall. DISCHARGE MEDICATIONS: Clonazepam 1 mg daily, Flexeril 10 mg 3 times a day as needed, gabapentin 120 0 mg 3 times daily, lorazepam 1 mg every 8 hours as needed, losartan 100 mg daily, morphine ER 30 mg every 8 hours, promethazine 25 mg every 4 hours as needed. CONDITION OF THE PATIENT AT THE TIME OF DISCHARGE: Stable. I assessed Mr. Zee on the day of disc harge. He denies any chest pain or shortness of breath. He denies any lightheadedness. Vital signs are stable. S1 and S2 are heard, regular. Lungs are clear to auscultation bilaterally. HOSPITAL COURSE: Mr. Zee is a pleasant 41-year-old gentleman who was admitted to [facility] on 08/24/2017 following a fall from the context of vomiting and diarrhea. He has a history of Clostridium difficile diarrhea. He was initially started on metronidazole which was stop ped because he did not have recurrence of diarrhea in the hospital. His blood pressure remained stab le in the hospital. He was evaluated by therapy services. He was declined for inpatient rehabilitation. His nausea, vomiting, and diarrhea resolved as well. He is being discharged home in a stable condition. On the day of discharge, he has a white count of 7000, hemoglobin 11.8, platelet count 264,000, topher l electrolytes, and normal creatinine. He had a cervical spine CT on 08/24/2017, which showed arthritic changes of the spine with areas of T HE canal and foraminal stenosis without any evidence of fracture. CT scan of the chest, abdomen, and pelvis did not reveal any acute findings of the chest, abdomen, or pelvis. He had fatty changes of the liver. CT scan of the brain done without contrast on 08/24/2017 did not reveal any acute intracr anial abnormalities. Thank you for allowing me to participate in your patient's care. Please feel free to contact me with any questions or concerns. He is advised to follow up with his primary care physician's office in 3-5 days' time. DISCHARGE DESTINATION: Home. TOTAL AMOUNT OF TIME SPENT COORDINATING THIS DISCHARGE: 32 minutes.
== END 2017-08-27 17:49 | disposition home or self-care (01) | DRG 641 ==
LOC: ERS 12:27 → T4-B 18:41
PROVIDERS: ADMIT Hospitalist; ATTEND Hospitalist
DX: E86.0 Dehydration (principal); K52.9 Noninfective gastroenteritis and colitis, unspecified; Z68.42 Body mass index [BMI] 45.0-49.9, adult; I10 Essential (primary) hypertension; Z91.81 History of falling; E78.5 Hyperlipidemia, unspecified; M19.90 Unspecified osteoarthritis, unspecified site; Z86.711 Personal history of pulmonary embolism; E66.9 Obesity, unspecified
CPT/HCPCS: 36415; 70450; 71260; 72125; 74177; 80048; 80053; 82550; 82553; 83690; 84484; 85025; 93005; 94760; 96361; 96374; A4216; G8978-GP-CK; G8979-GP-CI; G8987-GO-CJ; G8988-GO-CH; J2270; J2274; J2550; S0028

== ENCOUNTER 2017-10-21 19:41 | Observation (INO) | payer OTHER, SELFPAY ==
[2017-10-21 20:16] LABS: Bilirubin Negative (Negative); Blood, Urine Negative (Negative); Clarity CLEAR (Clear); Glucose, Urine (Dipstick) Negative (Negative); Leukocyte Negative (Negative); Nitrite Negative (Negative); Protein, Urine (Dipstick) Negative (Neg-Trace); Specific Gravity, Urine 1.012 (1.002-1.036); Urobilinogen 0.2 mg/dL (0.2-1.0); pH, Urine 6.5 (5.0-9.0)
[2017-10-21] MEDS ORDERED: Morphine 4 MG/ML VIAL ONE ×2 (20:41→22:30)
[2017-10-21 20:47] LABS: #Basophils 0.1 thou/uL (0.0-0.2); #Eosinphils 0.3 thou/uL (0.0-0.7); #Lymphocytes 2.1 thou/uL (1.20-3.40); #Monocytes 0.5 thou/uL (0.11-0.59); #Neutrophils 5.3 thou/uL (1.40-6.50); %Basophils 0.7 % (0.0-1.0); %Eosinophils 3.9 % (0.0-10.0); %Lymphocytes 25.5 % (21.0-51.0); %Monocytes 6.4 % (0.0-10.0); %Neutrophils 63.5 % (42.0-75.0); Hemoglobin 13.8 g/dL (14.0-18.0); Mean Corpuscular HGB CONC 32.4 g/dL (32.0-36.0); Mean Corpuscular Hemoglobin 27.1 pg (27.0-31.0); Mean Corpuscular Volume 83.5 fl (80.0-94.0); Mean Platelet Volume 8.2 fL (7.4-10.4); Platelet Count 281 thou/uL (130-400); RBC Distribution Width 14.8 % (11.5-14.5); Red Blood Cell (RBC) Count 5.11 mill/uL (4.70-6.10); White Blood Cell (WBC) Count 8.3 thou/uL (4.8-10.8)
[2017-10-21] MEDS ORDERED: Promethazine HCl 25 MG/ML VIAL ONE (21:01)
--- NOTE | 2017-10-21 21:12 | RAD ---
THREE VIEWS LUMBAR SPINE 10/21/17 HISTORY: Low back pain. COMPARISON: 08/13/17. FINDINGS: Again noted are postsurgical changes related to posterior fusion of the L3-4 level with bipedicular s crews and posterior rods transfixing this level and intradiscal prosthesis again noted in place. No h ardware complication is seen. Laminectomy defects are seen posteriorly at this level as well as the L 4-5 level. There is stable grade I anterolisthesis of L3 on L4. Degenerative changes are again presen t at the L4-5 level with osteophytes and mild narrowing of the intervertebral disc space. The vertebr al body heights are within normal limits and there is no acute fracture seen. Degenerative changes ar e seen at the T11-12 level. There has been no interval change compared to the prior exam. Surgical cl ips again overlie the right upper quadrant. IMPRESSION: 1. Postsurgical changes lower lumbar spine, stable from prior exam. 2. Mild degenerative changes at the L4-5 level. 3. No acute osseous abnormality is seen. POS: JON
[2017-10-21 21:13] LABS: Troponin I Less than 0.010 ng/mL (< 0.028)
--- NOTE | 2017-10-21 21:14 | RAD ---
PORTABLE AP CHEST X-RAY 10/21/17 HISTORY: Back pain and syncope. COMPARISON: 04/30/17. FINDINGS: The cardiac silhouette and bronchovascular markings are accentuated by the shallow depth of inspirati on and portable technique of the exam. No focal consolidation or pleural fluid is seen. There has bee n no interval change from the prior exam. IMPRESSION: Accentuation of the bronchovascular markings due to a shallow depth of inspiration, but no definite a cute cardiopulmonary process is visualized. POS: JON
[2017-10-21 21:50] LABS: Albumin 3.9 g/dL (3.5-5.0)
[2017-10-21 21:51] LABS: Chloride 107 mmol/L (98-107); Sodium 140 mmol/L (136-145)
[2017-10-21 21:52] LABS: Calcium 9.4 mg/dL (7.8-10.44); Globulin 3.5 g/dL (2.4-3.5); Glucose 166 mg/dL (70-105); Protein, Total 7.4 g/dL (6.0-8.3)
[2017-10-21 21:54] LABS: Anion Gap 14 mmol/L (10-20); Bilirubin, Total 0.4 mg/dL (0.2-1.2); Carbon Dioxide 23 mmol/L (22-29)
[2017-10-21 21:55] LABS: Alkaline Phosphatase 78 U/L (40-150); Calc. Creatinine Clearance 0 mL/min (70-130); Estimated GFR-MDRD Greater than 90
[2017-10-21 21:56] LABS: BUN (Urea Nitrogen) 10 mg/dL (8.9-20.6)
[2017-10-21 21:57] LABS: AST (SGOT) 9 U/L (5-34)
[2017-10-21 21:58] LABS: ALT (SGPT) 14 U/L (8-55)
[2017-10-22] MEDS ORDERED: Sodium Chloride 0.9% 1,000 ML IV SCH (03:30)
[2017-10-22] MEDS ORDERED: Promethazine HCl 25 MG/ML VIAL IM/IV PRN (03:32)
[2017-10-22 04:08] LABS: #Basophils 0.1 thou/uL (0.0-0.2); #Eosinphils 0.4 thou/uL (0.0-0.7); #Lymphocytes 2.8 thou/uL (1.20-3.40); #Monocytes 0.5 thou/uL (0.11-0.59); #Neutrophils 6.1 thou/uL (1.40-6.50); %Basophils 0.7 % (0.0-1.0); %Eosinophils 4.5 % (0.0-10.0); %Lymphocytes 28.6 % (21.0-51.0); %Monocytes 4.8 % (0.0-10.0); %Neutrophils 61.4 % (42.0-75.0); Hemoglobin 13.6 g/dL (14.0-18.0); Mean Corpuscular HGB CONC 33.2 g/dL (32.0-36.0); Mean Corpuscular Hemoglobin 27.9 pg (27.0-31.0); Mean Corpuscular Volume 83.9 fl (80.0-94.0); Mean Platelet Volume 7.4 fL (7.4-10.4); Platelet Count 311 thou/uL (130-400); RBC Distribution Width 14.7 % (11.5-14.5); Red Blood Cell (RBC) Count 4.86 mill/uL (4.70-6.10); White Blood Cell (WBC) Count 9.9 thou/uL (4.8-10.8)
[2017-10-22 04:28] LABS: Anion Gap 13 mmol/L (10-20); BUN (Urea Nitrogen) 10 mg/dL (8.9-20.6); Calc. Creatinine Clearance 0 mL/min (70-130); Calcium 9.4 mg/dL (7.8-10.44); Carbon Dioxide 22 mmol/L (22-29); Chloride 109 mmol/L (98-107); Estimated GFR-MDRD 88; Glucose 143 mg/dL (70-105); Potassium 3.8 mmol/L (3.5-5.1); Sodium 140 mmol/L (136-145)
--- NOTE | 2017-10-22 04:56 | HP ---
PRIMARY CARE PHYSICIAN: Edin Turk M.D. CHIEF COMPLAINT: Syncope. HISTORY OF PRESENT ILLNESS: A 42-year-old male with a known history of lower back pain and a history of the cauda equina syndrome diagnosed, status post surgery in 08/2017. The patient's is at bedside and provides a fair amount of the history as the patient is intermit tently somnolent during this meeting. She reports that earlier this morning, the patient woke up, st arted his usual routine, but quickly veered off of his usual routine further described as having "gar bled speech" and both urinary and fecal incontinence described multiple times throughout the day. Benny lucero also endorses that he had worse than usual lower back pain which she attributes the fact that he lau s been nauseated and throwing up bile for most of the day today. His last known meal was the prior d ay's breakfast. The patient declined the lunch and supper, saying that he simply did not "feel like it." Unfortunately, in the emergency department, the patient's has been providing an inconsistent at times confusing history. As best as I can tell, it appears that she feels this is a recurrence of th e same symptoms he had when he was diagnosed with a cauda equina syndrome. She states that he typica lly has "good days" and "bad days" but he has not had a bad day quite this severe in the last month. It also appears that recommendations have been made repeatedly for the patient to go participated in inpatient rehabilitation, but since his procedure, this has not been executed. During this conversation initially, the patient was somnolent responding to questions with short answ ers. However, near the end of the interview, he was significantly more participatory and able to pro vide further detail and more complex answers. REVIEW OF SYSTEMS: As per HPI. General: As per above. Decreased appetite yesterday and today only . Denies any fevers or chills at home. Gastrointestinal: Nausea with vomiting as per above. No kn own diarrhea, but the patient has been having fecal incontinent with soft loose stool. Genitourinary : Urinary incontinence as above. Unknown if there is any change in volume over the course of the da y. The patient denies any dysuria, in fact denies any knowledge of actually urinating. HEENT: No n ew dizziness, headaches, lightheadedness in the last 48 hours. Cardiovascular: No chest pain, chest pressure, dyspnea with exertion. Respiratory: No recent upper respiratory infection type complaints. Denies any cough, sinusitis, sh ortness of breath, dyspnea with exertion. Musculoskeletal: The patient's endorses that he has been having increased difficulty with ambulating with his walker, but is unable to further clarify. Remainder review of systems is otherwise negative. PAST MEDICAL HISTORY: As per HPI and includes the following, 1. Cauda equina syndrome on 08/24/2017. 2. History of pulmonary embolism, status post blood thinners for greater than 3 months. 3. Known chronic spinal stenosis. 4. Osteoarthritis. 5. Hyperlipidemia. 6. Hypertension. 7. Status post cholecystectomy. 8. Status post Lumbar fusion L5-S1 on 08/24/2017. HOME MEDICATIONS: Please see the EMR for full details. The patient and his deny any changes to his home medication regimen in the last month. He states that his PCP is his pain management physic marcelo as well, he only receives narcotic pain medications from his PCP. ALLERGIES: KETOROLAC, METOCLOPRAMIDE, NSAIDs, ONDANSETRON, PREGABALIN, PROCHLORPERAZINE, TRAMADOL. FAMILY HISTORY: No known family history of any other family members with similar neurological or spi nal issues. SOCIAL HISTORY: No alcohol, no tobacco, no illicit drug use. The patient's at bedside, is lucas gnated as his medical decision maker. He endorses being FULL CODE at this point in time. PHYSICAL EXAMINATION: VITAL SIGNS: Blood pressure 153/91, pulse 86, respirations 20, satting 97% on room air. GENERAL: Patient is awake, alert when aroused from sleep, does fall quickly back to sleep. HEENT: Moist mucous membranes. Equal ocular motions are intact. CARDIOVASCULAR: S1, S2. Pulses 2+ bilateral upper extremities, no pitting pedal edema. RESPIRATORY: Clear to auscultation. Reasonable air movement. Limited anterior examination per mireya ent preference. ABDOMEN: Positive bowel sounds, soft, nontender to palpation. EXTREMITIES: Moving all 4 extremities independently. LABORATORY AND IMAGIN. CBC: WBC 8.3, hemoglobin 13.8, hematocrit 42.6, platelets 281. 2. D-dimer is 0.35. 3. Sodium 140, potassium 4.0, chloride 107, bicarb 23, BUN 10, creatinine 0.9, glucose 166, calcium 9.4, total bilirubin 0.4, AST 9, ALT 14, alkaline phosphatase 78, troponin less than 0.1. 4. UA is bland. Chest x-ray "accentuation of the bronchovascular markings due to shallow depth on aspiration, but no definite acute cardiopulmonary process is visualized." On 10/21/2017, x-ray of lumbar spine, impress ion "post-surgical changes, lower lumbar spine, stable from prior exam. Mild degenerative joint aguilar ges at the L4-5 level. No acute osseous abnormality is seen." ASSESSMENT AND PLAN: A 42-year-old male who presents with back pain and status post syncopal episode at home. Patient is described syncopal episode accompanied by acute elevated lower back pain is sug gestive of a vasovagal type event. Discussed with the patient and his at bedside. I highly juan pect he may have sustained a gastroenteritis type of picture given he had decreased appetite yesterda y followed by nausea and vomiting today. Recommend IV fluid hydration, check orthostatic vital signs . We will closely monitor the patient's p.o. intake. Resume home medication regimen. Discussed with the patient and his in detail that he has chronic lower back issues status post h is cauda equina syndrome and further delay rehabilitation would only further impede his ability to re cover from his prior injury. Case management consultation requested. Neurosurgical consultation req uested as well. The patient is admitted to observation status. FULL CODE. Thank you for asking me to care for your patient. Questions or concerns, please contact me at [facility].
[2017-10-22] MEDS: Morphine 4 MG/ML Carpuject SLOW IVP PRN ×4 (05:10→22:18)
--- NOTE | 2017-10-22 05:48 | CON ---
DATE OF CONSULTATION: 10/22/2017 ATTENDING PHYSICIAN: Dr. Mohit Tineo. HISTORY OF PRESENT ILLNESS: The patient is a 42-year-old male with a past medical history of morbid obesity, cauda equina syndrome on 06/29/17, status post L3-S1 decompression and L3-L4 fusion by Dr. Medina, pulmonary embolism, chronic spinal stenosis, hypertension, and hyperlipidemia who presented to the ER tonight for multiple complaints. The patient reports that yesterday evening he had significantly worsening lower back pain after he bent forward and felt "a pop". He states that the pain was so significant that he subsequently suffered a syncopal episode. The patient reports that since that event he has an increased back pain, he has had increase in bowel and bladder incontinence. The patient does report that he does has a baseline level of urinary incontinence, which has been ongoing for many years. He describes this usually "as a dribble" but increased tonight saturating his pants. He also reports that he had an episode of fecal incontinence this evening, which he reports is atypical for him. He has chronic sensation changes and weakness in the left leg , which is unchanged according to the patient and his . The patient was evaluated in the emergency department and initially ER was told that these had been chronic ongoing symptoms and had planned to discharge him home. The patient and his family are poor historians and inconsistent at times. Initially, the patient and family reported these symptoms for chronic in nature, but later reported that the patient is having worsening bowel and bladder incontinence. He also reports that he has had some confusion/agitation which the family is attributing to pain as well as some nausea and vomiting. This was evaluated in the emergency department as well. Patient's lumbar x-ray was done, which revealed stable hardware and no acute changes. A CT of the lumbar spine was recommended by myself for further evaluation of patient's symptoms. The patient is unable to receive an MRI secondary to large body habitus. I am seeing the patient at the bedside. He is awake and alert. He does not appear confused at this time. He has a good strength in the right lower extremity, 5/5. He is weak in the left lower extremity, 4/5. I did not ambulate the patient; however, he reports that he is able to ambulate with his walker for short distances with pain which is baseline for him. He is hyporeflexive throughout the lower extremities. PAST MEDICAL HISTORY: Cauda equina syndrome, pulmonary embolism, spinal stenosis, osteoarthritis, hypertension, hyperlipidemia. PAST SURGICAL HISTORY: L3-S1 decompression, L3-L4 fusion, cholecystectomy. ALLERGIES: The patient is allergic to KETOROLAC, METOCLOPRAMIDE, NSAIDs, ZOFRAN , PREGABALIN, PROCHLORPERAZINE, TRAMADOL. FAMILY HISTORY: Noncontributory. SOCIAL HISTORY: Patient denies any smoking or drug use. He lives at home. PHYSICAL EXAMINATION: CONSTITUTIONAL: No acute distress. He is awake and alert. HEAD: Normocephalic, atraumatic. ENT: Moist oral mucosa. Voice is normal. EYES: PERRLA. Extraocular movements intact. CARDIOVASCULAR: Regular rate and rhythm. RESPIRATORY: The patient is breathing comfortably. NECK: Nontender to palpation. Free active range of motion. No meningismus or nuchal rigidity. MUSCULOSKELETAL: He has good muscle tone to bilateral upper extremities, weakness over the left lower extremity, 4/5. He is hyporeflexive throughout the lower extremities. Negative clonus. NEUROLOGIC: Alert and oriented x4. He is able to move all extremities; however , weakness is appreciated over the left lower extremity at 4/5 strength. ASSESSMENT AND PLAN: The patient is a 42-year-old male with a history of spinal stenosis with prior L3-S1 decompression and L3-L4 fusion for cauda equina syndrome by Dr. Medina on 06/29/2017. The patient and his family are very poor historians. He has known underlying small amount of urinary incontinence, which has been ongoing for some time; however, he reports that has been worsening over the last 24 hours with addition of fecal incontinence. His plain film of the L-spine shows stable construct; however, we will get further imaging with a CT of the lumbar spine. Unfortunately, the patient is morbidly obese, which makes this evaluation more complicated as he is unable to receive an MRI. I have discussed this problem with Dr. Tineo and I will also let Dr. Medina and Mark Shelton PA-C know about the patient's current condition. Please reach out to Neurosurgery for additional questions or concerns. NAYE
[2017-10-22 06:24] VITALS: BMI 46.3
--- NOTE | 2017-10-22 09:50 | CT ---
PRELIMINARY REPORT/[facility]/EMERGENCY AFTER HOURS PROCEDURE: EXAM: CT Lumbar Spine Without Intravenous Contrast CLINICAL HISTORY: 42 years old, male; Pain; Low back pain; Prior surgery; Surgery date: 1-6 months; Patient HX: Pt C/O lower back pain. Pt states having back surgery on 06/2017 TECHNIQUE: Axial computed tomography images of the lumbar spine without intravenous contrast. Coronal and sagittal reformatted images were created and reviewed. COMPARISON: No relevant prior studies available. FINDINGS: Prior posterior spinal fusion at L3-L4 with intervertebral disc replacement noted. Surgical hardware is grossly intact. Bilateral laminectomies at L3-L4, L4-L5 and L5-S1 noted Severe foraminal stenosis noted at L4-L5 and L5-S1. Moderate foraminal stenosis at L3-L4. Mild centra l canal stenosis at L2-L3 No concerning soft tissue abnormality noted IMPRESSION: Severe foraminal stenosis in the lower lumbar spine as described Mild central canal stenosis at L2-L3 Thank you for allowing us to participate in the care of your patient. Dictated and Authenticated by: Blair Hernández MD 10/22/2017 5:46 AM Central Time ([place] & [place]) FINAL REPORT CT LUMBAR SPINE: Date: 10/22/17 HISTORY: Patient complaining of low back pain. FINDINGS: Noncontrast enhanced CT images of lumbar spine obtained. Comparison made to previous plain film radio graphs from 10/21/17. The patient has had previous L3, L4, and L5 laminectomies. Pedicle screws are seen fusing the L3-4 le vels. Intervertebral disc hardware is also in place at L3-4 intervertebral disc space. L3 and L4 pedi perico screws are in good position without evidence of fractures or loosening. No evidence of sanam or retrolisthesis is seen. Anterior and posterior osteophytes seen at the L4-5 level. The neural foramen are patent at all levels. No evidence of significant central spinal stenosis seen on CT images. IMPRESSION: Posterior L3, L4, and L5 laminectomy changes.
[2017-10-22] MEDS: Heparin 5,000 UNITS/ML VIAL SC SCH ×3 (10:29→21:39)
[2017-10-22] MEDS: Famotidine/PF 20 mg/2ml Vial SLOW IVP SCH ×2 (10:29→21:39)
--- NOTE | 2017-10-22 11:08 | CT ---
PRELIMINARY REPORT/[facility]/EMERGENCY AFTER HOURS PROCEDURE: EXAM: CT Head Without Intravenous Contrast CLINICAL HISTORY: 42 years old, male; Signs and symptoms; Syncope and collapse; Patient HX: M42 presents to ed via ems due to syncope and back pain. According to ems, said pt unresponsive for 10min and was unable to arose him. TECHNIQUE: Axial computed tomography images of the head/brain without intravenous contrast. COMPARISON: No relevant prior studies available. FINDINGS: Brain: Mild volume loss No hemorrhage. No significant white matter disease. No edema. Ventricles: Unremarkable. No ventriculomegaly. Bones/joints: Unremarkable. No acute fracture. Soft tissues: Unremarkable. Sinuses: Unremarkable as visualized. No acute sinusitis. Mastoid air cells: Unremarkable as visualized. No mastoid effusion. IMPRESSION: No intracranial hemorrhage.Please see discussion above. Thank you for allowing us to participate in the care of your patient. Dictated and Authenticated by: Blair Hernández MD 10/22/2017 12:22 AM Central Time ([place] & [place]) FINAL REPORT CT HEAD NONCONTRAST: Date: )10/22/17 FINDINGS/IMPRESSION: No acute intracranial hemorrhage or mass effect. I agree with the above provided preliminary interpretation from [facility]. POS: [facility]
[2017-10-22] MEDS ORDERED: clonazePAM 1 MG TAB PO PRN (14:42)
[2017-10-22] MEDS ORDERED: Promethazine 25 MG TAB PO PRN (14:44)
[2017-10-22] MEDS ORDERED: Cyclobenzaprine 10 MG TAB PO PRN (14:46)
[2017-10-22] MEDS ORDERED: Morphine IR Tab 15 MG TAB PO PRN (14:48)
[2017-10-22] MEDS: Gabapentin 400 MG CAP PO SCH ×2 (16:16→21:39)
[2017-10-22] MEDS ORDERED: hydrALAZINE 20 MG/ML VIAL SLOW IVP PRN (17:28)
[2017-10-22] MEDS: Morphine ER 30 MG TAB PO SCH (21:40)
[2017-10-23] MEDS: Morphine 4 MG/ML Carpuject SLOW IVP PRN ×4 (01:52→14:02)
[2017-10-23] MEDS: Lorazepam 1 MG TAB PO SCH ×3 (04:56→14:11)
[2017-10-23] MEDS: Morphine ER 30 MG TAB PO SCH ×2 (06:18→13:59)
[2017-10-23] MEDS ORDERED: Atorvastatin Calcium 40 MG TAB PO SCH (09:00)
[2017-10-23] MEDS ORDERED: Losartan 25 MG TAB PO SCH (09:00)
[2017-10-23] MEDS: Gabapentin 400 MG CAP PO SCH ×2 (09:44→13:59)
[2017-10-23] MEDS: Famotidine/PF 20 mg/2ml Vial SLOW IVP SCH (09:44)
[2017-10-23] MEDS: Heparin 5,000 UNITS/ML VIAL SC SCH ×2 (09:44→14:11)
[2017-10-23 12:28] VITALS: TEMP 98.1
[2017-10-23 13:24] VITALS: BP 141/85
--- NOTE | 2017-10-23 15:28 | DIS ---
DATE OF ADMISSION: 10/22/2017 DATE OF DISCHARGE: 10/23/2017 DISCHARGE DIAGNOSES: 1. Acute on chronic back pain. 2. Status post L3 through S1 lumbar decompression with fusion. 3. History of cauda equina syndrome, 06/2017. 4. Chronic spinal stenosis. 5. Acute encephalopathy, likely metabolic/iatrogenic, resolved. 6. Hypertension. 7. Chronic narcotic therapy. CONSULTATIONS: Dr. Medina with Neurosurgery. PERTINENT LABORATORY AND X-RAY FINDINGS: Basic metabolic profile within normal limits. CBC within n ormal limits. Urinalysis negative. Portable chest x-ray dated 10/21/2017 showed no acute cardiopulm onary process. Lumbar spine radiographs dated 10/21/2016 showed post-surgical changes of the lower l umbar spine, stable from prior exam. Mild degenerative changes at L4-L5 level. No acute process eder ntified. CT of the brain without contrast dated 10/22/2017 showed no acute intracranial process. CT of the lumbar spine dated 10/22/2017 showed severe foraminal stenosis in the lower lumbar spine. Mi ld central canal stenosis at L2-L3. Surgical hardware grossly intact. HOSPITAL COURSE: Patient was observed after presenting with acute encephalopathy, likely secondary t o polypharmacy with multiple narcotics and benzodiazepines. Patient was treated supportively and len luated by the neurosurgical service in the context of known chronic spinal stenosis, status post lumb ar laminectomy and foraminotomies. Patient's post-surgical changes were deemed appropriate without h ardware misplacement and no acute process was identified in the lumbar spine. The patient was given general supportive measures as well as IV morphine sulfate for pain control. The patient was not lo med an appropriate candidate for inpatient rehab and given recommendations for outpatient physical th erapy options. Overall, the patient did remain clinically stable throughout the hospital course and ready for discharge on 10/23/2017. DISCHARGE MEDICATIONS: 1. Lipitor 40 mg 1 tab p.o. daily. 2. Klonopin 1 mg p.o. daily. 3. Flexeril 10 mg p.o. t.i.d. p.r.n. 4. Gabapentin 1200 mg p.o. t.i.d. 5. Lorazepam 1 mg p.o. q.8 hours p.r.n. 6. Cozaar 100 mg 1 tab p.o. daily. 7. Morphine extended release 30 mg p.o. q.8 hours. 8. Morphine immediate release 15 mg p.o. q.3 hours p.r.n. pain. 9. Phenergan 25 mg p.o. q.4-6 hours p.r.n. nausea and vomiting. FOLLOWUP: The patient may follow up with his primary care provider, Dr. Edin Turk, within 7 days of discharge. CONDITION ON DISCHARGE: Stable. ACTIVITY: Ad jessica. DIET: Heart healthy. CODE STATUS: FULL. DISPOSITION: Home, 10/23/2017.
== END 2017-10-23 17:05 | disposition home or self-care (01) ==
LOC: ERS 19:41 → 2SW 10-22 04:06
PROVIDERS: ADMIT Internal Medicine; ATTEND Internal Medicine
DX: M54.9 Dorsalgia, unspecified (principal); G89.29 Other chronic pain; M48.00 Spinal stenosis, site unspecified; G93.40 Encephalopathy, unspecified; I10 Essential (primary) hypertension; M19.90 Unspecified osteoarthritis, unspecified site; E78.5 Hyperlipidemia, unspecified; E66.01 Morbid (severe) obesity due to excess calories; Z68.42 Body mass index [BMI] 45.0-49.9, adult; Z79.891 Long term (current) use of opiate analgesic; Z79.899 Other long term (current) drug therapy; Z88.6 Allergy status to analgesic agent; Z88.5 Allergy status to narcotic agent; Z88.8 Allergy status to other drugs, medicaments and biological substances; Z98.1 Arthrodesis status; Z90.49 Acquired absence of other specified parts of digestive tract; Z86.711 Personal history of pulmonary embolism
CPT/HCPCS: 36415; 70450; 71045; 72100; 72131; 80048; 80053; 81003; 82553; 84484; 85025; 85379; 93005; 96365; 96375; 96376; A4216; G0378; G8978-GP-CK; G8979-GP-CI; G8987-GO-CK; G8988-GO-CI; J0360; J1644; J2270; J2550; S0028

== ENCOUNTER 2017-10-26 00:40 | Inpatient (IN) | payer OTHER ==
[2017-10-26 01:45] LABS: Hemoglobin 12.4 g/dL (14.0-18.0); Mean Corpuscular HGB CONC 30.8 g/dL (32.0-36.0); Mean Corpuscular Hemoglobin 25.6 pg (27.0-31.0); Mean Corpuscular Volume 83.2 fl (80.0-94.0); Mean Platelet Volume 8.2 fL (7.4-10.4); Platelet Count 262 thou/uL (130-400); Red Blood Cell (RBC) Count 4.85 mill/uL (4.70-6.10); White Blood Cell (WBC) Count 13.8 thou/uL (4.8-10.8)
[2017-10-26] MEDS ORDERED: Promethazine HCl 25 MG/ML VIAL ONE ×2 (01:50→04:03)
[2017-10-26 01:57] LABS: #Basophils 0.1 thou/uL (0.0-0.2); #Eosinphils 0.4 thou/uL (0.0-0.7); #Lymphocytes 3.3 thou/uL (1.20-3.40); #Monocytes 0.8 thou/uL (0.11-0.59); #Neutrophils 9.2 thou/uL (1.40-6.50); %Basophils 0.5 % (0.0-1.0); %Eosinophils 3.1 % (0.0-10.0); %Lymphocytes 23.7 % (21.0-51.0); %Neutrophils 66.6 % (42.0-75.0)
[2017-10-26 01:58] LABS: ALT (SGPT) 24 U/L (8-55); AST (SGOT) 22 U/L (5-34); Albumin 4.1 g/dL (3.5-5.0); Alkaline Phosphatase 83 U/L (40-150); Anion Gap 16 mmol/L (10-20); BUN (Urea Nitrogen) 34 mg/dL (8.9-20.6); Bilirubin, Total 0.8 mg/dL (0.2-1.2); CK (CPK) 586 U/L (30-200); Calc. Creatinine Clearance 0 mL/min (70-130); Calcium 9.4 mg/dL (7.8-10.44); Carbon Dioxide 21 mmol/L (22-29); Chloride 99 mmol/L (98-107); Estimated GFR-MDRD 38; Globulin 3.5 g/dL (2.4-3.5); Glucose 116 mg/dL (70-105); Lipase 14 U/L (8-78); Potassium 4.3 mmol/L (3.5-5.1); Protein, Total 7.6 g/dL (6.0-8.3); Sodium 132 mmol/L (136-145)
[2017-10-26 02:03] LABS: CKMB 3.8 ng/mL (0-6.6); Troponin I 0.013 ng/mL (< 0.028)
[2017-10-26] MEDS ORDERED: Naloxone HCl 0.4 mg/ml Vial ONE (02:06)
[2017-10-26] MEDS ORDERED: Naloxone HCl 2 mg/2 ml Syringe ONE (02:08)
[2017-10-26 02:23] LABS: Acetaminophen Less than 6.0 mcg/mL (10.0-30.0); Alcohol Less than 10 mg/dL (Less than 10); Salicylate Less than 8.0 mg/dL (15.0-30.0)
[2017-10-26 02:24] LABS: D-Dimer Test 0.6 *mcg/mL (0.27-0.43)
[2017-10-26 02:27] LABS: INR-International Normal Ratio 1.1; PTT 29.8 SEC (22.9-36.1); Prothrombin Time 14.4 SEC (12.0-14.7)
[2017-10-26 02:46] LABS: Bilirubin Small (Negative); Blood, Urine Negative (Negative); Clarity CLOUDY (Clear); Glucose, Urine (Dipstick) Negative (Negative); Leukocyte Trace (Negative); Nitrite Negative (Negative); Protein, Urine (Dipstick) Trace mg/dL (Neg-Trace); Specific Gravity, Urine 1.023 (1.002-1.036)
[2017-10-26 02:49] LABS: Bacteria/HPF None Seen HPF (None Seen); Pathc Cast-AUWi Flag 8.13 (0-2.49); RBC/HPF 0-3 HPF (0-3); Squamous Epithelial 0-3 HPF (0-3)
[2017-10-26 02:54] LABS: Medtox Reader # READER 4
[2017-10-26 02:55] LABS: Amphetamine Not Detected (NotDetected); Barbiturates Screen Not Detected (NotDetected); Benzodiazepine Screen Detected (NotDetected); Cocaine Metabolite Screen Not Detected (NotDetected); Medtox Control Line Valid? VALID (VALID); Methadone Not Detected (NotDetected); Methamphetamine Not Detected (NotDetected); Opiate Screen Detected (NotDetected); Oxycodone Screen Not Detected (NotDetected); Phencyclidine (PCP) Not Detected (NotDetected); THC/Cannabinoid Screen Not Detected (NotDetected); Tricyclic Screen Not Detected (NotDetected)
[2017-10-26 03:00] LABS: Manual Microscopic Reviewed? No Path Casts Seen
[2017-10-26] MEDS ORDERED: Piperacillin/Tazobactam 4.5 GM in Sodium Chloride 0.9% 100 ML IVPB SCH (05:15)
[2017-10-26 05:30] LABS: Lactic Acid 0.8 mmol/L (0.5-2.2)
--- NOTE | 2017-10-26 07:25 | RAD ---
SINGLE VIEW OF THE CHEST: COMPARISON: 10/21/17. HISTORY: Abdominal pain with nausea and vomiting. Fever. FINDINGS: A single view of the chest shows an enlarged but stable cardiomediastinal silhouette. There are low lung volumes accentuating the cardiomediastinal silhouette. There is no evidence of consolidation, m ass, or pleural effusion. IMPRESSION: No evidence of acute cardiopulmonary disease. POS: [facility]
--- NOTE | 2017-10-26 08:08 | CT ---
PRELIMINARY REPORT/[facility]/EMERGENCY AFTER HOURS PROCEDURE: EXAM: CT Chest With Intravenous Contrast CLINICAL HISTORY: 42 years old, male; Pain; Chest pain; Type not specified; Abdominal pain; Generalized; Patient HX: Pa in, R/O dissection TECHNIQUE: Axial computed tomography images of the chest with intravenous contrast. Coronal and sagittal reformatted images were created and reviewed. CONTRAST: 60 mL of ISOVUE administered intravenously. COMPARISON: No relevant prior studies available. FINDINGS: Lungs: There is subpleural atelectasis of the dependent portions of the lungs. Pleural space: Normal. No pneumothorax. No significant effusion. Heart: Normal. No cardiomegaly. No significant pericardial effusion. Mediastinum: The trachea is normal. Thyroid: The visualized thyroid gland is unremarkable. Bones/joints: Normal. No acute fracture. No dislocation. Soft tissues: Normal. Vasculature: Evaluation for aortic dissection is limited due to timing of the contrast bolus however no obvious abnormalities identified. The pulmonary arteries are not enlarged. Lymph nodes: Normal. No enlarged lymph nodes. IMPRESSION: Evaluation for aortic dissection is limited due to timing of the contrast bolus however no obvious ab normalities identified. EXAM: CT Abdomen With Intravenous Contrast EXAM DATE/TIME: Exam ordered 10/26/2017 4:11 AM CLINICAL HISTORY: 42 years old, male; Pain; Chest pain; Type not specified; Abdominal pain; Generalized; Patient HX: Pain, R/O dissection TECHNIQUE: Axial computed tomography images of the abdomen with intravenous contrast. Coronal and sagittal reformatted images were created and reviewed. CONTRAST: 60 mL of ISOVUE administered intravenously. COMPARISON: No relevant prior studies available. FINDINGS: Lower thorax: No acute findings. Liver: There are no focal liver lesions present. Gallbladder and bile ducts: There has been a cholecystectomy. There is pneumobilia. No ductal dilatio n. Pancreas: The pancreas is normal. No ductal dilation. Spleen: The spleen is normal. Adrenals: The adrenal glands are normal. Kidneys and ureters: There is mild RIGHT hydroureteronephrosis. The distal RIGHT ureter is excluded f rom view. Stomach and bowel: The stomach is normal. The duodenum is unremarkable. Visualized bowel unremarkable . No obstruction. No mucosal thickening. Appendix: A normal appendix is identified. Intraperitoneal space: Normal. No free air. No significant fluid collection. Bones/joints: Patient is post posterior decompression of the lumbar spine with surgical fixation with transpedicular rods and screws. No dislocation. Soft tissues: Normal. Vasculature: Normal. No abdominal aortic aneurysm. Evaluation for dissection is limited due to timing of the contrast bolus however no obvious abnormality is identified. Lymph nodes: Normal. No enlarged lymph nodes. IMPRESSION: There is mild RIGHT hydroureteronephrosis. The distal RIGHT ureter is excluded from view. Obstructing distal RIGHT ureteral calculus is a consideration; consider imaging of the pelvis if clin ically warranted. Thank you for allowing us to participate in the care of your patient. Dictated and Authenticated by: Jerrod Valadez MD 10/26/2017 4:51 AM Central Time ([place] & [place]) FINAL REPORT EMERGENT AFTER HOURS CTA OF THE CHEST AND ABDOMEN WITH CONTRAST: TECHNIQUE: Multiple contiguous axial images were obtained in a CTA of the chest and abdomen per aorta dissection protocol. Three-D sagittal and coronal MIP reformats were performed. FINDINGS/IMPRESSION: I agree with the findings and impression given in the preliminary report per [facility] physician. 1. There is slight limitation of the study secondary to lack of completely dense contrast within the aorta. However, aorta is opacified and no dissection or aneurysmal dilatation of the aorta is seen. 2. There is mild right-sided hydronephrosis without a delay in the right nephrogram compared to the left. 3. The patient status post cholecystectomy. There is pneumobilia that may be secondary to prior sph incterotomy at the Ampulla of Vater.. POS: [facility]
[2017-10-26] MEDS ORDERED: Lorazepam 2 MG/ML VIAL SLOW IVP PRN (09:09)
[2017-10-26] MEDS ORDERED: Cyclobenzaprine 10 MG TAB PO PRN (09:14)
[2017-10-26] MEDS ORDERED: clonazePAM 1 MG TAB PO PRN (09:14)
[2017-10-26] MEDS ORDERED: Morphine 2 MG/ML SYRINGE SLOW IVP PRN (12:21)
[2017-10-26] MEDS ORDERED: Lorazepam 1 MG TAB PO SCH (14:00)
[2017-10-26] MEDS ORDERED: Morphine ER 30 MG TAB PO SCH (14:00)
[2017-10-26] MEDS: Sodium Chloride 0.9% 1,000 ML IV SCH (14:26)
[2017-10-26] MEDS: metroNIDAZOLE 500 MG in Premix Bag 1 BAG IVPB SCH ×2 (14:27→21:05)
[2017-10-26] MEDS: Promethazine HCl 25 MG/ML VIAL IM/IV PRN ×2 (15:29→22:12)
[2017-10-26] MEDS: Heparin 5,000 UNITS/ML VIAL SC SCH ×2 (15:29→21:06)
[2017-10-26] MEDS ORDERED: Morphine CADD 1 MG/ML CADD IVPB PRN (16:07)
[2017-10-26] MEDS ORDERED: Naloxone HCl 0.4 mg/ml Vial IV PRN (16:07)
[2017-10-26] MEDS ORDERED: Communication Order-Pharmacy FS SCH (16:15)
[2017-10-26] MEDS ORDERED: ISOVUE-370 76%-LOCM 1 ML ONE (16:59)
[2017-10-26] MEDS: Gabapentin 400 MG CAP PO SCH ×2 (17:49→21:04)
[2017-10-26] MEDS: Pantoprazole 40 MG VIAL IVP SCH (21:06)
--- NOTE | 2017-10-26 22:20 | HP ---
CHIEF COMPLAINT: Nausea and vomiting. HISTORY OF PRESENT ILLNESS: A 42-year-old male with a history of frequent readmissions and revisits and the known history of morbid obesity, cauda equina syndrome, status post spinal surgery in 06/2017 . It appears that the patient has had multiple emergency department visits for similar signs and sym ptoms including one yesterday. The patient is accompanied by his significant other at bedside today. The patient states that he has been having progressively increased episodes of nausea and vomiting ac companied by some abdominal discomfort after he has episodes of emesis. He does state that with vomi ting, his nausea does improve. The patient thinks that he has been able to take his medications as h e has not vomited after every medication self administration. REVIEW OF SYSTEMS: As per HPI. Constitutional: Denies any overt fevers or chills. HEENT: No new dizziness, although the patient endorses some confusion when he has these episodes at home. Cardiovas cular: No overt chest pressure or chest pain. However, after his emesis episodes, he does endorse s ome chest discomfort, but does temporarily associate them with bouts of emesis. Respiratory: Denies any overt shortness of breath. Denies any new cough. Gastrointestinal: As described above. Genit ourinary: The patient states that he has been having continued incontinence. Musculoskeletal: Stil l having weakness which he has been having during his prior hospitalization that has not grossly aguilar ged. HOME MEDICATIONS: Please see the EMR for full details. Patient and his significant other deny any c hanges to his regimen. ALLERGIES: COMPAZINE, LYRICA, NSAIDS, REGLAN, TORADOL, TRAMADOL and ZOFRAN. SOCIAL HISTORY: Denies any active alcohol, tobacco or illicit drug use. The patient is accompanied here today by his significant other who is with him at bedside. There appears to be a fair amount of frustration regarding his next set of care planning from prior hospital stay. PHYSICAL EXAMINATION: VITAL SIGNS: Blood pressure 131/89, heart rate of 82, respirations 19, satting 100% on 2 liters nasa l cannula. GENERAL: The patient is awake. He is conversant. He is currently oriented x3. HEENT: Normocephalic, atraumatic. Slightly dry mucous membranes. CARDIOVASCULAR: S1, S2. Soft heart tones. Pulses 2+ bilateral upper extremities, no pitting pedal edema. RESPIRATORY: Limited anterior examination. Otherwise, no overt wheezes, rales or rhonchi. ABDOMEN: Positive bowel sounds, large. No tenderness to palpation. EXTREMITIES: No emboli noted. LABORATORY DATA AND IMAGING: CTA of the chest, no emboli noted. WBC 13.8, hemoglobin 12.4, hematocr it 40.4, platelets 262, neutrophils 9.2. PT 14.4, INR 1.1, APTT 29.8. D-dimer 0.6. Sodium 132, pot assium 4.3, chloride 99, bicarbonate 21, BUN 34, creatinine 1.96, glucose 116, lactic acid 2.2, calci um 9.4, total bilirubin 0.8, AST 22, ALT 24. Creatine kinase 586, troponin 0.013. CRP 2.8. TSH 3.5 , lipase 14, albumin 4.1. UA significant for small bilirubin, trace, leukoesterase, WBC 7-11 and 21- 50 hyalin casts. Urine drug screen positive for benzodiazepines and opiates. ASSESSMENT AND PLAN: A 42-year-old male presenting with nausea and vomiting. 1. Nausea and vomiting. Supportive management. Make the patient n.p.o. Initiate PPI. Unclear the re is an intra-abdominal etiology; however, his CTA of the abdomen does not seem to suggest such. 2. Systemic inflammatory response syndrome or sepsis. Patient has a predominantly GI etiology with leukocytosis, tachycardia, empiric ciprofloxacin and metronidazole. Initiate sepsis protocol. 3. Chronic pain. Continue the patient on his home regimen; however, if he has continued nausea, vom iting, and inability to keep down his home regimen, to consider IV pain regimen. 4. Recent history of cauda equina syndrome. Continue monitoring his neurological status. 5. Admit the patient as an inpatient. FULL CODE. I have discussed this with the patient's signific ant other at the patient at bedside.
[2017-10-27] MEDS: Sodium Chloride 0.9% 1,000 ML IV SCH ×3 (00:32→16:28)
[2017-10-27] MEDS: metroNIDAZOLE 500 MG in Premix Bag 1 BAG IVPB SCH ×2 (05:26→14:30)
[2017-10-27 05:51] LABS: #Eosinphils 0.1 thou/uL (0.0-0.7); #Lymphocytes 1.7 thou/uL (1.20-3.40); #Monocytes 0.8 thou/uL (0.11-0.59); #Neutrophils 5.9 thou/uL (1.40-6.50); %Basophils 0.4 % (0.0-1.0); %Eosinophils 1.7 % (0.0-10.0); %Lymphocytes 20.2 % (21.0-51.0); %Monocytes 8.8 % (0.0-10.0); %Neutrophils 68.9 % (42.0-75.0); Hemoglobin 11.4 g/dL (14.0-18.0); Mean Corpuscular HGB CONC 31.5 g/dL (32.0-36.0); Mean Corpuscular Hemoglobin 26.6 pg (27.0-31.0); Mean Corpuscular Volume 84.5 fl (80.0-94.0); Mean Platelet Volume 7.5 fL (7.4-10.4); Platelet Count 287 thou/uL (130-400); RBC Distribution Width 15.1 % (11.5-14.5); Red Blood Cell (RBC) Count 4.29 mill/uL (4.70-6.10); White Blood Cell (WBC) Count 8.5 thou/uL (4.8-10.8)
[2017-10-27 06:06] LABS: ALT (SGPT) 17 U/L (8-55); AST (SGOT) 14 U/L (5-34); Albumin 3.6 g/dL (3.5-5.0); Alkaline Phosphatase 63 U/L (40-150); Anion Gap 14 mmol/L (10-20); BUN (Urea Nitrogen) 15 mg/dL (8.9-20.6); Bilirubin, Total 0.8 mg/dL (0.2-1.2); Calc. Creatinine Clearance 276 mL/min (70-130); Calcium 8.7 mg/dL (7.8-10.44); Carbon Dioxide 22 mmol/L (22-29); Chloride 104 mmol/L (98-107); Estimated GFR-MDRD 90; Globulin 3.2 g/dL (2.4-3.5); Glucose 124 mg/dL (70-105); Potassium 4.1 mmol/L (3.5-5.1); Protein, Total 6.8 g/dL (6.0-8.3); Sodium 136 mmol/L (136-145)
--- NOTE | 2017-10-27 09:11 | PDOC.PN ---
- Subjective Encounter Start Date: 10/27/17 Encounter Start Time: 09:10 Subjective: nsg notes rev, yakelin ovn, SO at bedside with patient, pt no NEW c/o -: felt warm overnight, had sweats, able to sleep but not until 5am still has -: nausea and discomfort - Objective Resuscitation Status: Resuscitation Status FULL:Full Resuscitation Vital Signs & Weight: Vital Signs (12 hours) Temp Pulse Resp BP Pulse Ox 10/27/17 07:58 98.1 F 84 20 178/101 H 98 10/27/17 06:40 97.8 F 84 16 139/77 98 10/26/17 23:15 98.9 F 88 16 174/81 H 99 Weight Admit Weight 407 lb 9.6 oz Weight 400 lb 4.8 oz I&O: 10/26/17 10/27/17 10/28/17 06:59 06:59 06:59 Intake Total 1910 Output Total 2475 Balance -565 Result Diagrams: 10/27/17 04:57 10/27/17 04:57 Phys Exam - Physical Examination Constitutional: NAD HEENT: PERRLA, moist MMs, sclera anicteric, oral pharynx no lesions no overt oral abscess noted - examination req per patients SO Respiratory: no wheezing, no rales, no rhonchi, clear to auscultation bilateral Cardiovascular: RRR, no significant murmur, no rub Gastrointestinal: soft, non-tender, no distention, positive bowel sounds Musculoskeletal: pulses present Neurological: moves all 4 limbs Psychiatric: normal affect, A&O x 3 Dx/Plan (1) Sepsis Code(s): A41.9 - SEPSIS, UNSPECIFIED ORGANISM Status: Acute (2) Hydronephrosis Code(s): N13.30 - UNSPECIFIED HYDRONEPHROSIS Status: Acute (3) Positive blood culture Code(s): R78.81 - BACTEREMIA Status: Acute (4) Nausea and vomiting Code(s): R11.2 - NAUSEA WITH VOMITING, UNSPECIFIED Status: Acute (5) Morbid obesity with BMI of 45.0-49.9, adult Code(s): E66.01 - MORBID (SEVERE) OBESITY DUE TO EXCESS CALORIES; Z68.42 - BODY MASS INDEX (BMI) 45.0-49.9, ADULT Status: Chronic - Plan 1. Nausea and vomiting. Supportive management. Continue NPO, PPI, empiric metronidazole, ciprofloxacin Question if related to suggested ureteral stone based on mild R hydronephrosis noted on CT abd. Urology consultation appreciated. 2. Sepsis. Empiric abx as above. Leukocytosis has resolved. Blood culture positive for staph epi which is often considered a contaminant. Will await sensitivities - ? already suggested to be methicillin- resistant?. Will recheck blood culture. Infectious diseases consultation appreciated. 3. Chronic pain. Continue the patient on morphine OPTOMETRIST - hold ALL oral pain regimen and anxiolytic regimen. 4. Recent history of cauda equina syndrome. Appears to be stable. Diet: NPO Activity: PT Review of Systems - Medications/Allergies Allergies/Adverse Reactions: Allergies Allergy/AdvReac Type Severity Reaction Status Date / Time ketorolac tromethamine Allergy Verified 08/24/17 20:17 [From Toradol] metoclopramide [From Reglan] Allergy Verified 08/24/17 20:17 NSAIDS (Non-Steroidal Allergy Verified 08/24/17 20:17 Anti-Inflamma ondansetron Allergy Hives Verified 08/24/17 20:18 [From Zofran (as hydrochloride)] pregabalin [From Lyrica] Allergy Verified 08/24/17 20:17 prochlorperazine Allergy Hives Verified 08/24/17 20:18 [From Compazine] tramadol Allergy Verified 08/24/17 20:17 Medications: Current Medications Gabapentin (Neurontin) 1,200 mg PO TID [facility] Last Admin: 10/26/17 21:04 Dose: Not Given Heparin Sodium (Porcine) (Heparin) 5,000 units SC TID [facility] Last Admin: 10/26/17 21:06 Dose: 5,000 units Sodium Chloride (Normal Saline 0.9%) 1,000 mls @ 100 mls/hr IV .Q10H [facility] Last Admin: 10/27/17 05:25 Dose: Not Given Ciprofloxacin/Dextrose 400 mg/ (Device) 200 mls @ 200 mls/hr IVPB 0100,1300 [facility] Last Admin: 10/27/17 00:46 Dose: 200 mls Metronidazole 500 mg/ Device 100 mls @ 100 mls/hr IVPB Q8HR [facility] Last Admin: 10/27/17 05:26 Dose: 100 mls Losartan Potassium (Cozaar) 100 mg PO DAILY [facility] Miscellaneous Medication (Pharmacy To Dose) 1 each IVPB ONE PRN PRN Reason: Pharmacy to dose Morphine Sulfate (Morphine Cadd) 0 mg IVPB INF PRN PRN Reason: Pain Last Admin: 10/26/17 17:28 Dose: 100 mg Naloxone HCl (Narcan) 0.2 mg IV Q5MIN PRN PRN Reason: Opiate Reversal Pantoprazole Sodium (Protonix) 40 mg IVP Q12HR [facility] Last Admin: 10/26/17 21:06 Dose: 40 mg Promethazine HCl (Phenergan) 25 mg IM/IV Q6H PRN PRN Reason: Nausea/Vomiting Last Admin: 10/26/17 22:12 Dose: 25 mg
[2017-10-27] MEDS: Losartan 25 MG TAB PO SCH (09:12)
[2017-10-27] MEDS: Heparin 5,000 UNITS/ML VIAL SC SCH ×3 (09:12→20:45)
[2017-10-27] MEDS: Gabapentin 400 MG CAP PO SCH ×3 (09:12→20:45)
[2017-10-27] MEDS: Pantoprazole 40 MG VIAL IVP SCH ×2 (09:13→20:29)
[2017-10-27] MEDS: Promethazine HCl 25 MG/ML VIAL IM/IV PRN ×3 (09:29→20:48)
[2017-10-27] MEDS ORDERED: hydrALAZINE 20 MG/ML VIAL SLOW IVP PRN (13:09)
--- NOTE | 2017-10-27 16:14 | ULT ---
BILATERAL LOWER EXTREMITY VENOUS DOPPLER WITH SPECTRAL ANALYSIS AND COLOR FLOW EVALUATION: DATE: 10/27/17. HISTORY: Bilateral lower extremity edema, hypotension. FINDINGS: Salazar scale, color flow, Doppler evaluation, and spectral analysis of the bilateral lower extremity ve nous structures is performed with 2D imaging. The bilateral lower extremity common femoral, superfic ial femoral, popliteal, posterior tibial, and proximal visualized profunda femoral, and superficial f emoral veins are imaged. There is normal lumen compressibility, flow, and augmentation in the visualized deep venous structure s bilateral lower extremities. IMPRESSION: No evidence of a deep vein thrombosis involving the visualized deep venous structures. POS: [facility]
--- NOTE | 2017-10-27 16:48 | CON ---
DATE OF CONSULTATION: 10/27/2017 REASON FOR CONSULTATION: Fever. HISTORY OF PRESENT ILLNESS: A 42-year-old patient who has a history of obesity, chronic low back pro blems associated with spina bifida and spinal cord compression with chronic pain syndrome requiring f airly high doses of opioid medication and quite a few admissions in the past 2 years to [facility]. In 2013, the patient had cholelithiasis with cholecystitis and underwent laparoscopic surg vince. Subsequently, in June of last year, he was diagnosed with lumbar stenosis, saddle numbness and evidence of cauda equina and underwent decompressive laminectomy and interbody arthrodesis at L3 -L4. There were some issues with getting him to rehabilitation facility due to his insurance eventua lly ended up going home with physical therapy there. According to himself and the over the past few months, he has developed weakness and numbness in the left lower extremity and the note from his admission in 06/29/2017 indicates patient will be able to ambulate with oral pain medication and miko lgesia management. A few days later, on 08/27/2017, he again had what he describes an episode of gas troenteritis and fall. He was discharged on clonazepam, Flexeril, gabapentin, lorazepam, and now is lorazepam as needed, losartan, promethazine and morphine. The nausea and vomiting resolved during is admission, a CT of brain which did not show any significant abnormalities. No comments were made on his functional status in terms of his walking ability in the discharge summary. Then, in 10/23/19 18, just about 4 days before this consultation. The discharge diagnosis was acute on chronic back pain, decompression with fusion in lumbar spine, ca uda equina syndrome. It was felt that patient had acute encephalopathy due to polypharmacy and the eurosurgical service evaluated the patient and then think that there were any issues to be dealt with regarding the last surgical procedure for decompression. He was discharged on Lipitor, Klonopin, Fl exeril, gabapentin, lorazepam, morphine and Phenergan. The patient is readmitted with reported fever in the home setting up to 104 Fahrenheit. There is also some confusional state and recurrence of th e previous episodes of nausea and vomiting, some abdominal discomfort and emesis. Initial findings i ncluded a BP of 130/90 but it went down to 80 systolic after a couple of hours in the emergency room. Heart rate was up to 130, O2 sats were normal. By the Hospitalist, he described has been awake and conversant and oriented. Patient had a CTA of chest with no evidence of emboli, had a CT dissection protocol which did not show any changes, no evidence of dissection. No focal liver lesions, there i s pneumobilia from a prior cholecystectomy and spleen was normal. There was mild right hydroureteron ephrosis. The operative site where the decompressive surgery was done, did not appear to have any ab normalities of note. No comment is made on the pulmonary vasculature. Currently, Mr. Zee is awak e. He falls asleep fairly rapidly, easy to arouse though. He is oriented. Follows commands. He de nies headaches, no sore throat, odynophagia, dysphagia, and still with his usual back pain in lower a ольга. No abdominal pain or may be some abdominal pain and tenderness, which is scattered throughout t he abdomen and mild. Patient, as noted previously, cannot move his left lower extremity as noted in the exam below. PAST MEDICAL HISTORY: Hypertension, obesity, chronic low back pain on chronic opioids and to at leas t 2 different types of benzodiazepine, history of pulmonary embolism in the past. PAST SURGICAL HISTORY: Cholecystectomy, laminectomy with fusion and lower back for management of cau da equina syndrome for spinal stenosis. ALLERGIES: COMPAZINE, LYRICA, NONSTEROIDAL ANTI-INFLAMMATORY AGENTS, REGLAN, TRAMADOL, ZOFRAN. SOCIAL HISTORY: [facility] in [facility]. No alcoholic beverage use. No drug use other than opioids. FAMILY HISTORY: Noncontributory. CURRENT MEDICATIONS: He is on ciprofloxacin, gabapentin, heparin, Apresoline, Cozaar, Flagyl, morphi ne, Narcan, Protonix, promethazine, vancomycin. PHYSICAL EXAMINATION: GENERAL: He has been afebrile through the hospital stay. His BP now is up to 170/100, pulse 62, res pirations ranging from 16-20 and O2 sat 95-99%. SKIN: Did not show any areas of skin breakdown. The patient has a right sided triple lumen groin ca theter for IV access. No Yoon catheter. No lymphadenopathy. HEENT: Ocular movements are conjugate. Sclerae white. Pupils are equal and reactive. Oral cavity moist. Numerous teeth in place with some debris, but otherwise in fairly good shape. NECK: Supple. LUNGS: With symmetric clear breath sounds. HEART: S1, S2, regular rate. ABDOMEN: Soft with mild tenderness which is diffuse. No ascites. No bladder distention. EXTREMITIES: His left lower extremity, he does not move and he has 2+ dorsalis pedis. The right ext remity he moves fairly normally. NEUROLOGIC: He is quite drowsy, but arousable. He is oriented when he is up, but quite promptly jaime l fall asleep. LABORATORY DATA: Sodium 132, creatinine 1.96 on admission, now creatinine down to 0.93, sodium 136, CO2 was 21 and now is 22. The liver profile was normal. CK was 586, albumin 4.1, globulin 3.5, lipa se 14. TSH 3.5. CRP was 2.81. Urinalysis with 7-10 WBCs. White cell count 13.8, hemoglobin 12.4, platelets 262 with normal differential, now the white cell count is down to 8.5, hemoglobin 11.4, shannon telets 287. Toxicology with benzodiazepine drugs, opiates, but no alcohol or other drugs. ASSESSMENT: 1. Obesity. 2. Spinal stenosis with recent decompressive surgery for management of cauda equina. 3. Residual left lower extremity weakness. 4. Recent admission for nausea, vomiting. 5. Chronic use of multiple psychotropic medications, particularly benzodiazepines, gabapentin, Phene rgan in addition to opioid medication for management of pain. 6. Readmission with fever and nausea, vomiting. DISCUSSION: Differential diagnosis includes thromboembolism versus aspiration associated with the me ntal status changes secondary to multiple psychotropic medication use. Gastrointestinal symptoms cou ld be related to gastroparesis associated with the medications that have been prescribed. Difficult case to manage since he would probably have to involve reduction and the dosing of the benzodiazepine s as well as the other psychotropic medications and opioids, this would have to be made slowly and pr obably in the inpatient setting. Otherwise, he will continue to present with readmission. I do not think that there is evidence to suggest an infectious process at this point in time. Again, thromboe mbolism is a concern because of his paresthesia of left lower extremity and history of prior pulmonar y embolism. I do not believe it has been properly ruled out yet.
--- NOTE | 2017-10-27 20:59 | CT ---
CT ABDOMEN AND PELVIS WITHOUT CONTRAST: Date: 10-27-17 Provided Clinical History: Right hydronephrosis. FINDINGS: Correlation made with the CT performed 10-26-17. The visualized lung jenkins are free of opacity. The solid abdominal organs are suboptimally evaluated without IV contrast but demonstrate an unremark able, unenhanced CT. There is no evidence for hydronephrosis on the current study. There is no eviden ce for urinary tract calculi. There is no bowel dilatation, inflammatory fat stranding, free fluid, or free air apparent. Evaluatio n is limited as the left lateral most portion of the abdomen to include portions of the spleen are no t well seen due to beam hardening artifact related to positioning within the tube. The visualized osseous structures demonstrate no concerning osteoblastic or osteolytic lesions. Lower lumbar spine post-surgical changes are seen. The right femoral catheter is noted. IMPRESSION: 1. No evidence for urinary tract calculi or hydronephrosis. POS: [facility]
--- NOTE | 2017-10-27 21:49 | CON ---
DATE OF CONSULTATION: 10/27/2017 CONSULTING PHYSICIAN: Kyle Berg M.D. CONSULTED PHYSICIAN: Herb Oglesby M.D. REASON FOR CONSULTATION: Right hydronephrosis. CHIEF COMPLAINT: Nausea and vomiting originally. HISTORY OF PRESENT ILLNESS: Mr. Zee is a 42-year-old male with a long history of frequen t admissions secondary to multiple comorbidities including obesity, cauda equina syndrome, spinal janet geries and suicide attempts. The patient had increased episodes of nausea and vomiting and was diagn osed with some type of a GI illness associated with possible systemic inflammatory response syndrome. He is currently being treated by the medicine service with antibiotics and supportive care. During his admission, he underwent a CT dissection protocol, which did not demonstrate any evidence of aort ic dissection; however, on his imaging, there was noted to be mild right hydronephrosis, although the distal ureter could not be evaluated from view. There was no obvious evidence of nephrolithiasis wi thin the visualized portions and I have been consulted for further assistance with this. On my discu ssion with the patient, he states that he has chronic back pain, which sometimes localizes to the rig ht or left. He states this has been going on for many years and is currently not any significantly d ifferent from prior. He denies any hematuria, urinary tract infections, history of nephrolithiasis o r previous urologic surgeries. He states he does have difficulty with urination and usually has to s train to urinate, but usually can feel empty when done. This was likely tied to his cauda equina syn drome. The patient did undergo a urinalysis, which did not demonstrate any hematuria or any other co ncerning findings. PAST MEDICAL HISTORY: 1. Hypertension. 2. Obesity. 3. Chronic lower back pain. 4. History of pulmonary embolism. 5. Cauda equina syndrome. 6. Depression. PAST SURGICAL HISTORY: 1. Cholecystectomy. 2. Laminectomy with fusion of lower back for management of cauda equina syndrome and spinal stenosis . ALLERGIES: 1. COMPAZINE. 2. LYRICA. 3. NSAIDS. 4. REGLAN. 5. TRAMADOL. 6. ZOFRAN. HOME MEDICATIONS: 1. Neurontin. 2. Flexeril. 3. Lipitor. 4. MS Contin. 5. Cozaar. 6. Klonopin. 7. Phenergan. 8. Morphine immediate release. FAMILY HISTORY: Noncontributory. SOCIAL HISTORY: Lives in [facility]. He is currently , has one son. He denies al cohol use, illicit drug use other than his prescribed opiates and denies smoking. REVIEW OF SYSTEMS: A 12-point review of systems is significant for nausea and vomiting previously an d abdominal pain as well as his chronic back pain and the above listed urinary symptoms. The remaind er of his 12-point review of systems is otherwise unremarkable. PHYSICAL EXAMINATION: VITAL SIGNS: Temperature 98.4, pulse 86, respirations 16, blood pressure 131/79, and saturation 99% on 2 liters nasal cannula. GENERAL: Alert, communicative, answers questions appropriately, extremely obese with appears stated age. HEENT: Normocephalic, atraumatic. Sclerae are nonicteric. Pupils are symmetric and round. Moist m ucous membranes. Trachea midline. Nasal cannula in place. CARDIOVASCULAR: Regular rate and rhythm. Normal S1 and S2, symmetric pulses. CHEST: No increased work of breathing, distant breath sounds. Symmetric expansion of the lungs. ABDOMEN: Soft, mild tenderness diffusely. No fluid shift. Positive bowel sounds. Nondistended rebeca dder. Organomegaly is extremely difficult to evaluate secondary to patient's size. GENITOURINARY: Deferred at this time. EXTREMITIES: 2+ edema. Normal pulses. No clubbing or cyanosis. SKIN: Warm, dry, good turgor, no rashes. NEUROLOGIC: Cranial nerves II-XII grossly intact. No focal sensory or motor deficits identified. MUSCULOSKELETAL: The patient can move all of his extremities, range of motion is somewhat limited to a size. No obvious joint deformities or joint erythema noted. PSYCHIATRIC: Alert and oriented x3, appropriate mood and affect for situation. LABORATORY EVALUATION: White count is currently 8.5 with hemoglobin of 11.4, platelet of 287. Creat inine is currently 0.93 with normal electrolytes otherwise. Urinalysis demonstrates no blood, 7-10 w tulio cells, 21-50 hyaline casts, small bilirubin, nitrite negative, leukocyte esterase is trace. CT dissection protocol from 10/26/2017 demonstrates no evidence of aortic dissection or aneurysmal dilat ation of the aorta, mild right-sided hydronephrosis without a delay in the right nephrogram compared to the left. Status post cholecystectomy with pneumobilia, which may be secondary to prior sphincter otomy of the ampulla of Vater. ASSESSMENT AND PLAN: A 42-year-old male with morbid obesity with incidentally noted right-s ided mild hydronephrosis without full evaluation of the complete urinary tract. Before any further e valuation, I would recommend getting a CT stone protocol to evaluate the entire urinary tract to ensu re that he does not have a ureteral stone. If no stone is identified a MAG3 scan with Lasix can be p erformed to evaluate the degree of obstruction if any. If the patient is found to have very mild to no obstruction, we can probably monitor him conservatively without any treatment. Given that he is r elatively asymptomatic with normal kidney function. However, if there is a higher degree of obstruct ion or some type of obstructing stone, we can discuss treatment options accordingly. I have discusse d this with the patient and he is in agreement with the plan. SUMMARY OF RECOMMENDATIONS: 1. CT stone protocol. 2. MAG3 scan pending, results of CT stone protocol if no stone is seen. 3. We will continue to follow and discuss. 4. We will manage urinary symptoms and poor urine flow as an outpatient, which is likely secondary t o his cauda equina syndrome.
[2017-10-28] MEDS: Sodium Chloride 0.9% 1,000 ML IV SCH ×4 (02:29→22:34)
[2017-10-28] MEDS: Heparin 5,000 UNITS/ML VIAL SC SCH ×3 (08:34→20:04)
[2017-10-28] MEDS: Gabapentin 400 MG CAP PO SCH ×4 (08:36→20:04)
[2017-10-28] MEDS: Losartan 25 MG TAB PO SCH (08:37)
[2017-10-28] MEDS: Pantoprazole 40 MG VIAL IVP SCH (08:38)
[2017-10-28] MEDS: Promethazine HCl 25 MG/ML VIAL IM/IV PRN ×2 (08:40→16:23)
[2017-10-28 09:00] LABS: #Basophils 0.1 thou/uL (0.0-0.2); #Eosinphils 0.2 thou/uL (0.0-0.7); #Lymphocytes 1.5 thou/uL (1.20-3.40); #Monocytes 0.5 thou/uL (0.11-0.59); #Neutrophils 4.8 thou/uL (1.40-6.50); %Basophils 0.8 % (0.0-1.0); %Eosinophils 2.3 % (0.0-10.0); %Monocytes 6.4 % (0.0-10.0); %Neutrophils 68.4 % (42.0-75.0); Hemoglobin 11.2 g/dL (14.0-18.0); Mean Corpuscular HGB CONC 32.7 g/dL (32.0-36.0); Mean Corpuscular Hemoglobin 27.9 pg (27.0-31.0); Mean Corpuscular Volume 85.4 fl (80.0-94.0); Mean Platelet Volume 7.8 fL (7.4-10.4); Platelet Count 218 thou/uL (130-400); RBC Distribution Width 14.9 % (11.5-14.5); Red Blood Cell (RBC) Count 4.03 mill/uL (4.70-6.10)
[2017-10-28 09:10] LABS: Anion Gap 14 mmol/L (10-20); BUN (Urea Nitrogen) 10 mg/dL (8.9-20.6); Calc. Creatinine Clearance 268 mL/min (70-130); Calcium 8.7 mg/dL (7.8-10.44); Carbon Dioxide 21 mmol/L (22-29); Chloride 108 mmol/L (98-107); Estimated GFR-MDRD 90; Glucose 114 mg/dL (70-105); Potassium 3.9 mmol/L (3.5-5.1); Sodium 139 mmol/L (136-145)
[2017-10-28] MEDS ORDERED: Lidocaine 2% Viscous Solution 10 ML, Aluminum & Magnesium Hydroxide 30 ML SSW SCH ×2 (10:45)
--- NOTE | 2017-10-28 10:46 | PDOC.PN ---
- Subjective Encounter Start Date: 10/28/17 Encounter Start Time: 10:46 Subjective: nsg notes rev, yakelin ovn pt no new c/o but states he still has abdominal pain -: with PO intake. no new c/o otherwise, no further fevers/ chills. significan -: other at bedside - Objective Resuscitation Status: Resuscitation Status FULL:Full Resuscitation Vital Signs & Weight: Vital Signs (12 hours) Temp Pulse Resp BP Pulse Ox 10/28/17 07:12 97.6 F 69 20 132/62 99 10/28/17 03:48 98.7 F 72 20 130/75 98 10/27/17 23:24 98.9 F 84 20 125/57 L 100 Weight Admit Weight 407 lb 9.6 oz Weight 395 lb 6.4 oz I&O: 10/27/17 10/28/17 10/29/17 06:59 06:59 06:59 Intake Total 1910 3157 Output Total 2475 2900 Balance -565 257 Result Diagrams: 10/28/17 07:50 10/28/17 07:50 Additional Labs: Accuchecks 10/28/17 10/27/17 10/27/17 05:40 22:02 17:20 POC Glucose 107 111 H 108 Phys Exam - Physical Examination Constitutional: NAD HEENT: PERRLA, moist MMs, sclera anicteric Respiratory: no wheezing, no rales, no rhonchi, clear to auscultation bilateral poor respiratoiry effort, limited ant examination Cardiovascular: RRR, no significant murmur, no rub soft heart tones, likely secondary to habitus Gastrointestinal: soft, non-tender, no distention, positive bowel sounds no tenderness to palpation by myexamination post medication Neurological: moves all 4 limbs Dx/Plan (1) Sepsis Code(s): A41.9 - SEPSIS, UNSPECIFIED ORGANISM Status: Acute (2) Hydronephrosis Code(s): N13.30 - UNSPECIFIED HYDRONEPHROSIS Status: Acute (3) Positive blood culture Code(s): R78.81 - BACTEREMIA Status: Acute (4) Nausea and vomiting Code(s): R11.2 - NAUSEA WITH VOMITING, UNSPECIFIED Status: Acute (5) Morbid obesity with BMI of 45.0-49.9, adult Code(s): E66.01 - MORBID (SEVERE) OBESITY DUE TO EXCESS CALORIES; Z68.42 - BODY MASS INDEX (BMI) 45.0-49.9, ADULT Status: Chronic - Plan Appreciate ID consultation regarding positive blood cultures. Antibiotics have been discont Appreciate urology consultation no stone apparent Continue supportive care for urinary incontinence SIRS/ sepsis on admission no clear etiology pt is experiencing loose stools with a known prior hx of C Diff - will send stool sample for testing and place on enteric precautions if continued N/V/ abd pain t/c consulting GI, patient is already on protonix, trialed a GI cocktail without symptomatic relief Leukocytosis, resolved Trial resuming home regimen; D/C [employer]LYST today D/W patient and his significant other at bedside 2x today. Greater than 30 minutes total time spent coordinating care. Review of Systems - Medications/Allergies Allergies/Adverse Reactions: Allergies Allergy/AdvReac Type Severity Reaction Status Date / Time ketorolac tromethamine Allergy Verified 08/24/17 20:17 [From Toradol] metoclopramide [From Reglan] Allergy Verified 08/24/17 20:17 NSAIDS (Non-Steroidal Allergy Verified 08/24/17 20:17 Anti-Inflamma ondansetron Allergy Hives Verified 08/24/17 20:18 [From Zofran (as hydrochloride)] pregabalin [From Lyrica] Allergy Verified 08/24/17 20:17 prochlorperazine Allergy Hives Verified 08/24/17 20:18 [From Compazine] tramadol Allergy Verified 08/24/17 20:17 Medications: Current Medications Lidocaine HCl 10 ml/ Al (Hydroxide/Mg Hydroxide 30 ml) 0 ml SSW NOW [facility] Stop: 10/28/17 12:45 Gabapentin (Neurontin) 1,200 mg PO TID [facility] Last Admin: 10/28/17 08:36 Dose: 1,200 mg Heparin Sodium (Porcine) (Heparin) 5,000 units SC TID [facility] Last Admin: 10/28/17 08:34 Dose: 5,000 units Hydralazine HCl (Apresoline) 10 mg SLOW IVP Q4H PRN PRN Reason: .SBP >170, DBP >100 Sodium Chloride (Normal Saline 0.9%) 1,000 mls @ 100 mls/hr IV .Q10H [facility] Last Admin: 10/28/17 05:57 Dose: 1,000 mls Losartan Potassium (Cozaar) 100 mg PO DAILY [facility] Last Admin: 10/28/17 08:37 Dose: 100 mg Miscellaneous Medication (Pharmacy To Dose) 0 each IVPB ASDIR PRN PRN Reason: Pharmacy to Dose VANCOMYCIN Morphine Sulfate (Morphine Cadd) 0 mg IVPB INF PRN PRN Reason: Pain Last Admin: 10/26/17 17:28 Dose: 100 mg Naloxone HCl (Narcan) 0.2 mg IV Q5MIN PRN PRN Reason: Opiate Reversal Pantoprazole Sodium (Protonix) 40 mg PO BID [facility] Promethazine HCl (Phenergan) 25 mg IM/IV Q6H PRN PRN Reason: Nausea/Vomiting Last Admin: 10/28/17 08:40 Dose: 25 mg
[2017-10-28] MEDS ORDERED: Promethazine 25 MG TAB PO PRN (14:34)
[2017-10-28] MEDS ORDERED: Lorazepam 0.5 MG TAB PO PRN (14:36)
[2017-10-28] MEDS: Atorvastatin Calcium 40 MG TAB PO SCH (20:04)
[2017-10-28] MEDS: Pantoprazole 40 MG GRANULES PACKET PO SCH (20:04)
--- NOTE | 2017-10-28 20:30 | PRG ---
DATE OF SERVICE: 10/28/2017 SUBJECTIVE: The patient according to the will wake up and have normal conversation and frequent ly will fall asleep again. I was able to arouse him from sleep and he was able to talk to me and ans wer questions. At the end of the visit, he was back to sleeping. He had some abdominal distention a nd had a large amount of loose stools. Denied any headaches. No sore throat, odynophagia, or dyspha bo. No vomiting. No respiratory symptoms. OBJECTIVE: VITAL SIGNS: T-max of 98.9, is currently 98.4; blood pressure 140/80; pulse 66; respirations 20; O2 sat 100. SKIN: With no areas of skin breakdown. The patient has a peripheral IV access. No Yoon catheter. He has a right groin triple lumen catheter. No lymphadenopathy. HEENT: Ocular movements are conjugate. Sclerae white. Oral cavity normal. LUNGS: With symmetric clear breath sounds. HEART: S1, S2, regular rate. ABDOMEN: Soft, not distended or tender. He cannot move his left lower extremity except for maybe th e thigh he can bring it up a little bit, but he cannot move the foot at all. He is able to move his right lower extremity and the upper extremities well. His cognitive function appears to be intact. LABORATORY DATA: White cell count today is 7.0, hemoglobin 11, platelets 218, creatinine 0.93. INR 1.1. Microbiology with negative blood cultures except for the contamination of the first blood cultu re set. Abdomen and pelvis CT was done on 10/27/2017 with no evidence of urinary tract calculi or hy dronephrosis. There is a consultation from Urology, Dr. Oglesby, this was regarding the previously n oted mild hydronephrosis, but this was felt to be not significant, repeat study did not show it. ASSESSMENT AND DISCUSSION: Obesity with spinal stenosis and cauda equina syndrome with still persist ent neurological deficits, particularly left lower extremity, recurrent episodes of nausea and vomiti ng, recent admission with similar findings, chronic pain syndrome, polypharmacy. DISCUSSION: The patient continues with his pattern of drowsiness, although he is very oriented and c oherent when he wakes up here in the hospital. He is on gabapentin p.r.n., lorazepam p.r.n., as well as scheduled morphine every 8 hours. He is also on promethazine as needed. Thus far, it is not doris arent that he has an infectious process going on, I am not sure that he truly had sepsis when he came in, in the absence of a true infectious source. Again, the combination of polypharmacy might be traci e element of gastroparesis, now he is having profuse stooling and stool tests have been submitted for various enteropathogens and will follow up those as well. Overall, I believe that this is a combina tion of factors including his mobility impairments, polypharmacy pain syndrome, benzodiazepine and ot her psychotropic medications that have gastrointestinal effect as well with gastroparesis.
[2017-10-28] MEDS ORDERED: metroNIDAZOLE 500 MG TAB PO SCH (22:15)
[2017-10-28] MEDS: Morphine ER 30 MG TAB PO SCH (22:23)
[2017-10-29] MEDS: Sodium Chloride 0.9% 1,000 ML IV SCH ×3 (03:44→17:01)
[2017-10-29] MEDS: Morphine ER 30 MG TAB PO SCH ×3 (05:25→22:26)
[2017-10-29 08:42] VITALS: BMI 45.3
[2017-10-29] MEDS: Heparin 5,000 UNITS/ML VIAL SC SCH ×3 (10:04→20:57)
[2017-10-29] MEDS: Pantoprazole 40 MG GRANULES PACKET PO SCH ×2 (10:04→21:00)
[2017-10-29] MEDS: Gabapentin 400 MG CAP PO SCH ×3 (10:05→21:12)
[2017-10-29] MEDS: metroNIDAZOLE 500 MG TAB PO SCH ×3 (10:05→16:54)
[2017-10-29] MEDS: Losartan 25 MG TAB PO SCH (10:05)
[2017-10-29] MEDS: Morphine IR Tab 15 MG TAB PO PRN ×2 (10:28→17:00)
--- NOTE | 2017-10-29 11:02 | PRG ---
DATE OF SERVICE: 10/28/2017 SUBJECTIVE: The patient states he is having significant issues with his GI tract, which is currently being managed by the Hospitalist team. He has no urinary complaints other than occasional slow stre am, which is chronic for him. OBJECTIVE: VITAL SIGNS: Temperature 98.4, pulse 66, respirations 20, blood pressure 144/80, saturations 100% on room air. GENERAL: Appears somewhat uncomfortable, morbidly obese. CARDIOVASCULAR: Regular rate and rhythm. CHEST: No increased work of breathing. ABDOMEN: Soft, mildly tender to palpation, nondistended. EXTREMITIES: No clubbing, cyanosis or edema. IMAGING: Patient's CT stone protocol did not demonstrate any hydronephrosis bilaterally. There were no stones or any concerning findings within the kidneys themselves. ASSESSMENT AND PLAN: A 42-year-old male with incidental hydronephrosis noted on a CT aortic dissection protocol, which subsequently has disappeared on the most recent CT stone protocol. He lau s no other urinary findings on his CT scan and no evidence of recurrent hydronephrosis or nephrolithi asis. From my standpoint, I do not see any further reason to continue to see him in the hospital. Blair lucero does have cauda equina syndrome and slow urinary stream, which may be due to either BPH or his caud a equina syndrome. I told him he can always follow up with me as an outpatient if he desires for fur ther assistance with this, but since he is having so many issues with his GI tract, at the current ti me, this probably should be addressed first. He is in agreement and states he will notify me if he w ishes to follow up in the future. My office number is [phone] for an appointment if he wishes t o make a referral or follow up appointment with me after discharge.
--- NOTE | 2017-10-29 16:02 | PDOC.PN ---
- Subjective Encounter Start Date: 10/29/17 Encounter Start Time: 16:01 Subjective: complains of generalized abdominal pain. Diarrhea resolving. Only one BM - Objective Resuscitation Status: Resuscitation Status FULL:Full Resuscitation MAR Reviewed: Yes Vital Signs & Weight: Vital Signs (12 hours) Temp Pulse Pulse Resp BP BP Pulse Ox 10/29/17 12:00 97.8 F 60 18 141/88 H 100 10/29/17 09:53 58 L 132/85 10/29/17 08:34 97.4 F L 98 10/29/17 08:00 97.4 F L 65 18 143/97 H 98 Weight Admit Weight 407 lb 9.6 oz Weight 392 lb 3.2 oz I&O: 10/28/17 10/29/17 10/30/17 06:59 06:59 06:59 Intake Total 3157 1597 Output Total 2900 2500 Balance 257 -903 Result Diagrams: 10/28/17 07:50 10/28/17 07:50 Additional Labs: Accuchecks 10/29/17 10/29/17 10/28/17 11:11 06:35 21:15 POC Glucose 95 141 H 126 H 10/28/17 16:12 POC Glucose 106 Phys Exam - Physical Examination HEENT: PERRLA, moist MMs, sclera anicteric Neck: full ROM Respiratory: no wheezing, no rales, clear to auscultation bilateral Cardiovascular: RRR, no significant murmur, no rub Gastrointestinal: soft, no distention, positive bowel sounds diffuse abd pain. No guarding, rebound tenderness Musculoskeletal: no edema Neurological: non-focal, moves all 4 limbs Psychiatric: normal affect, A&O x 3 Skin: no rash Dx/Plan (1) C. difficile diarrhea Code(s): A04.72 - ENTEROCOLITIS D/T CLOSTRIDIUM DIFFICILE, NOT SPCF RECUR Status: Acute Plan: improving with Flagyl treatment. Continue current plan of care. (2) HTN (hypertension) Code(s): I10 - ESSENTIAL (PRIMARY) HYPERTENSION Status: Chronic Qualifiers: Hypertension type: essential hypertension Qualified Code(s): I10 - Essential (primary) hypertension Plan: Achieving better control. Continue losartan and PRN hydralazine. (3) Morbid obesity with BMI of 45.0-49.9, adult Code(s): E66.01 - MORBID (SEVERE) OBESITY DUE TO EXCESS CALORIES; Z68.42 - BODY MASS INDEX (BMI) 45.0-49.9, ADULT Status: Chronic Plan: Will educate on maintaining healthy lifestyle, exercise and diet. - Plan cont current plan of care, plan discussed w/ family * .
[2017-10-29] MEDS ORDERED: Vancomycin HCl 25 MG/ML Oral PO SCH ×2 (18:15→21:00)
--- NOTE | 2017-10-29 18:16 | PRG ---
DATE OF SERVICE: 10/29/2017 HISTORY: Mr. Zee is feeling much better today. He is more alert and is able to have conversation . He is totally oriented and follows commands. Denies any headaches. No more diarrhea today. No r espiratory symptoms. No genitourinary symptoms. OBJECTIVE: VITAL SIGNS: Showed again normal temperature. LUNGS: Clear. HEART: S1, S2, regular rate. ABDOMEN: Soft. Bowel sounds are not increased. LABORATORY DATA: White cell count 7.0, hemoglobin 11, platelets 218. Chemistry is unremarkable. e stool evaluations submitted yesterday showed a positive Clostridium difficile antigen and toxin jono t. ASSESSMENT AND DISCUSSION: Spinal stenosis, residual left lower extremity weakness, previous admissi on for nausea and vomiting, now recurrence of fever, nausea, vomiting, and diarrhea. The fever did n ot recurrent in the hospital, but he did have profuse diarrhea, which tested positive for C. difficil e. So, in retrospect, it looks like C. difficile as the culprit here. In view of the severity, 2 ad missions related to it we will transition to vancomycin orally from Flagyl. Discussed potential of r ecurrence with family and the patient.
[2017-10-29] MEDS: Atorvastatin Calcium 40 MG TAB PO SCH (20:57)
[2017-10-30] MEDS: Sodium Chloride 0.9% 1,000 ML IV SCH ×2 (00:15→14:53)
[2017-10-30] MEDS: Vancomycin HCl 25 MG/ML Oral PO SCH ×3 (00:15→11:51)
[2017-10-30] MEDS: Morphine ER 30 MG TAB PO SCH ×2 (05:34→14:27)
[2017-10-30 05:37] LABS: #Eosinphils 0.3 thou/uL (0.0-0.7); #Lymphocytes 1.7 thou/uL (1.20-3.40); #Monocytes 0.4 thou/uL (0.11-0.59); #Neutrophils 5.3 thou/uL (1.40-6.50); %Basophils 0.5 % (0.0-1.0); %Eosinophils 3.7 % (0.0-10.0); %Monocytes 5.6 % (0.0-10.0); %Neutrophils 68.2 % (42.0-75.0); Hemoglobin 10.7 g/dL (14.0-18.0); Mean Corpuscular HGB CONC 33.4 g/dL (32.0-36.0); Mean Corpuscular Volume 83.9 fl (80.0-94.0); Mean Platelet Volume 7.8 fL (7.4-10.4); Platelet Count 225 thou/uL (130-400); RBC Distribution Width 14.8 % (11.5-14.5); Red Blood Cell (RBC) Count 3.81 mill/uL (4.70-6.10); White Blood Cell (WBC) Count 7.8 thou/uL (4.8-10.8)
[2017-10-30 05:50] LABS: Anion Gap 10 mmol/L (10-20); BUN (Urea Nitrogen) 8 mg/dL (8.9-20.6); Calc. Creatinine Clearance 256 mL/min (70-130); Calcium 8.6 mg/dL (7.8-10.44); Carbon Dioxide 25 mmol/L (22-29); Chloride 106 mmol/L (98-107); Estimated GFR-MDRD 89; Glucose 99 mg/dL (70-105); Potassium 3.3 mmol/L (3.5-5.1); Sodium 138 mmol/L (136-145)
[2017-10-30] MEDS ORDERED: Potassium Chloride 20 MEQ TAB PO SCH (08:00)
[2017-10-30] MEDS: Losartan 25 MG TAB PO SCH (08:45)
[2017-10-30] MEDS: Pantoprazole 40 MG GRANULES PACKET PO SCH (08:45)
[2017-10-30] MEDS: Gabapentin 400 MG CAP PO SCH ×2 (08:48→14:28)
[2017-10-30] MEDS: Heparin 5,000 UNITS/ML VIAL SC SCH ×2 (08:49→14:29)
[2017-10-30] MEDS: Morphine IR Tab 15 MG TAB PO PRN (12:27)
--- NOTE | 2017-10-30 15:14 | PDOC.PN ---
- Subjective Encounter Start Date: 10/30/17 Encounter Start Time: 15:13 Subjective: no complaints. No longer has frequent loose stools. No acute events ovents - Objective Resuscitation Status: Resuscitation Status FULL:Full Resuscitation MAR Reviewed: Yes Vital Signs & Weight: Vital Signs (12 hours) Temp Pulse Resp BP Pulse Ox 10/30/17 11:36 98.3 F 92 20 118/70 98 10/30/17 08:00 98.3 F 92 20 117/65 99 10/30/17 06:20 97.5 F L 74 18 104/59 L 96 Weight Admit Weight 407 lb 9.6 oz Weight 381 lb 8 oz I&O: 10/29/17 10/30/17 10/31/17 06:59 06:59 06:59 Intake Total 1597 1391 840 Output Total 2500 2600 Balance -903 -1209 840 Result Diagrams: 10/30/17 04:26 10/30/17 04:26 Additional Labs: Accuchecks 10/30/17 10/29/17 10/29/17 11:50 20:38 17:25 POC Glucose 127 H 112 H 92 Phys Exam - Physical Examination Constitutional: NAD HEENT: PERRLA, moist MMs, sclera anicteric Neck: supple, full ROM Respiratory: no wheezing, no rales, no rhonchi, clear to auscultation bilateral Cardiovascular: RRR, no significant murmur, no rub Gastrointestinal: soft, no distention, positive bowel sounds mild diffuse tenderness w/o guarding or rebound Musculoskeletal: no edema, pulses present Neurological: moves all 4 limbs Psychiatric: normal affect, A&O x 3 Skin: no rash Dx/Plan (1) C. difficile diarrhea Code(s): A04.72 - ENTEROCOLITIS D/T CLOSTRIDIUM DIFFICILE, NOT SPCF RECUR Status: Acute Comment: Improving. No more loose stools. Will discharge on PO vancomycin. (2) HTN (hypertension) Code(s): I10 - ESSENTIAL (PRIMARY) HYPERTENSION Status: Chronic Qualifiers: Hypertension type: essential hypertension Qualified Code(s): I10 - Essential (primary) hypertension Plan: Controlled and at goal. Continue home regimen. (3) Morbid obesity with BMI of 45.0-49.9, adult Code(s): E66.01 - MORBID (SEVERE) OBESITY DUE TO EXCESS CALORIES; Z68.42 - BODY MASS INDEX (BMI) 45.0-49.9, ADULT Status: Chronic (4) Lumbar spinal stenosis Code(s): M48.06 - SPINAL STENOSIS, LUMBAR REGION * DO NOT USE * Status: Chronic Comment: With a h/o Cauda Equina syndrome. Resumed on home medications while in hospital. Will f/u with his outside specialists. nothing acute on this admission. - Plan cont current plan of care, plan discussed w/ family, DVT proph w/heparin * .
[2017-10-30 17:11] VITALS: BP 113/73; TEMP 98
--- NOTE | 2017-10-31 02:02 | DIS ---
DATE OF ADMISSION: 10/26/2017 DATE OF DISCHARGE: 10/30/2017 DISCHARGE DIAGNOSES: Clostridium difficile diarrhea, hypertension, morbid obesity with BMI of 45-49, lumbar spinal stenosis. HISTORY OF PRESENT ILLNESS: A 42-year-old male with history of recurrent readmissions and revisits u [facility], history of morbid obesity, cauda equina syndrome, status post spinal surgery in 06/2017. He reports he had progressively increased episodes of nausea and vomiting accompanied by some abdominal discomfort. HOSPITAL COURSE: Investigation reveals Clostridium difficile diarrhea as the patient had profuse jasmine rrhea with multiple episodes on admission. He was initially started on vancomycin, but after reviewe d by Infectious Disease, he was changed to p.o. vancomycin as he had previous C. diff episodes. He r emained stable on admission. Blood pressure was well controlled. Investigations done included venog nael which was negative for DVT. CT abdomen/pelvis without contrast showed no evidence of urinary tra ct calculi or hydronephrosis. CT dissection showed no acute findings. PHYSICAL EXAMINATION: CONSTITUTIONAL: Not in acute distress. HEENT: PERRLA, moist mucous membranes. Sclerae are anicteric. NECK: Supple, with full range of movement. RESPIRATORY: No wheezing, rales or rhonchi. Clear to auscultation bilaterally. CARDIOVASCULAR: Regular rate and rhythm. No significant murmur. No rubs. GASTROINTESTINAL: Soft, no distention. Positive bowel sounds, mild diffuse tenderness, without guar ding or rebound. MUSCULOSKELETAL: No edema. Pulses present. NEUROLOGIC: Moves all four limbs. PSYCHIATRIC: Normal affect. Alert and well oriented. SKIN: No rash. CONDITION AT DISCHARGE fair. CONSULTS: Infectious Disease, Urology. DIET: Heart-healthy diet. DISCHARGE MEDICATIONS: Vancomycin 125 mg p.o. every 6 hours for 14 days, promethazine 25 mg q.4 hour s p.r.n. for nausea and vomiting, potassium chloride 20 mEq p.o. daily for 5 days, morphine instant r elease tablets 15 mg p.o. every 3 hours for severe pain, morphine extended release 30 mg every 8 hour s, losartan 100 mg daily, gabapentin 1200 mg t.i.d., Flexeril 10 mg t.i.d., clonazepam 1 mg p.o. aniyah y, atorvastatin 40 mg p.o. at bedtime. ACTIVITY: As tolerated. CARE GOALS: The patient to take medications as prescribed. He is to follow up with his primary care physician within 1 week of discharge to home. Total time of discharge 65 minutes, including chart review and documentation.
--- NOTE | 2017-11-01 15:15 | EKG ---
Test Reason : SEPSIS ALERT Blood Pressure : / mmHG Vent. Rate : 104 BPM Atrial Rate : 104 BPM P-R Int : 146 ms QRS Dur : 084 ms QT Int : 338 ms P-R-T Axes : 030 072 034 degrees QTc Int : 444 ms Sinus tachycardia Otherwise normal ECG Confirmed by NANCY COLLADO, MARIO (12), avid editor DOLORES ULRICH ([id number]) on 11/01/2017 3:14:27 PM Referred By: Confirmed By:MARIO CRUZ MD
== END 2017-10-30 16:53 | disposition home or self-care (01) | DRG 371 ==
LOC: ERS 00:40 → ERHOLD 05:34 → 2SE 15:03 → T4-B 10-29 22:39
PROVIDERS: ADMIT Internal Medicine; ATTEND Internal Medicine
PROC: 06HY33Z Insertion of Infusion Device into Lower Vein, Percutaneous Approach (ICD-10-PCS; principal; 2017-10-27)
DX: A04.72 Enterocolitis due to Clostridium difficile, not specified as recurrent (principal); G92 Toxic encephalopathy; E66.01 Morbid (severe) obesity due to excess calories; G95.20 Unspecified cord compression; G83.4 Cauda equina syndrome; Z68.42 Body mass index [BMI] 45.0-49.9, adult; Z88.8 Allergy status to other drugs, medicaments and biological substances; I10 Essential (primary) hypertension; M48.061 Spinal stenosis, lumbar region without neurogenic claudication; G89.29 Other chronic pain; M54.5 Low back pain; Z86.711 Personal history of pulmonary embolism; F32.9 Major depressive disorder, single episode, unspecified; Q05.9 Spina bifida, unspecified; Z79.891 Long term (current) use of opiate analgesic
CPT/HCPCS: 36415; 36416; 36556; 71045; 71275; 74176; 80048; 80053; 80202; 80306; 80307; 81003; 81015; 82553; 83605; 83690; 83880; 84443; 84484; 85025; 85379; 85610; 85652; 85730; 86140; 87040; 87045; 87046; 87149; 87324; 87449; 87899; 93005; 93970; 94760; 96361; 96365; 96367; 96368; 96375; 96376; C9113; G8978-GP-CM; G8979-GP-CI; G8987-GO-CK; G8988-GO-CI; J0360; J0744; J1644; J1956; J2274; J2310; J2543; J2550; J3370; J7050

== ENCOUNTER 2017-11-26 12:01 | Emergency (ER) | payer SELFPAY | END 2017-11-26 13:00 | disposition left against medical advice (07) | LOC: ERS 12:01 | DX: Z53.21 Procedure and treatment not carried out due to patient leaving prior to being seen by health care provider (principal) ==

== ENCOUNTER 2017-12-11 09:55 | Emergency (ER) | payer OTHER, SELFPAY ==
[2017-12-11 11:55] LABS: #Eosinphils 0.3 thou/uL (0.0-0.7); #Lymphocytes 1.7 thou/uL (1.20-3.40); #Monocytes 0.5 thou/uL (0.11-0.59); #Neutrophils 5.4 thou/uL (1.40-6.50); %Basophils 0.2 % (0.0-1.0); %Eosinophils 4.1 % (0.0-10.0); %Lymphocytes 21.9 % (21.0-51.0); %Neutrophils 67.8 % (42.0-75.0); Hemoglobin 12.4 g/dL (14.0-18.0); Mean Corpuscular HGB CONC 32.7 g/dL (32.0-36.0); Mean Corpuscular Hemoglobin 27.8 pg (27.0-31.0); Mean Corpuscular Volume 84.8 fl (80.0-94.0); Mean Platelet Volume 7.5 fL (7.4-10.4); Platelet Count 252 thou/uL (130-400); Red Blood Cell (RBC) Count 4.46 mill/uL (4.70-6.10); White Blood Cell (WBC) Count 7.9 thou/uL (4.8-10.8)
[2017-12-11] MEDS ORDERED: Morphine 2 MG/ML SYRINGE ONE (11:58)
[2017-12-11 12:04] LABS: ALT (SGPT) 19 U/L (8-55); AST (SGOT) 15 U/L (5-34); Albumin 3.6 g/dL (3.5-5.0); Alkaline Phosphatase 74 U/L (40-150); Anion Gap 12 mmol/L (10-20); BUN (Urea Nitrogen) 11 mg/dL (8.9-20.6); Bilirubin, Total 0.5 mg/dL (0.2-1.2); CRP (Inflammatory) 0.78 mg/dL (= or < 0.5); Calc. Creatinine Clearance 0 mL/min (70-130); Calcium 9.4 mg/dL (7.8-10.44); Carbon Dioxide 25 mmol/L (22-29); Chloride 103 mmol/L (98-107); Estimated GFR-MDRD Greater than 90; Globulin 3.3 g/dL (2.4-3.5); Glucose 122 mg/dL (70-105); Potassium 4.5 mmol/L (3.5-5.1); Protein, Total 6.9 g/dL (6.0-8.3); Sodium 135 mmol/L (136-145)
--- NOTE | 2017-12-11 13:22 | CT ---
CT LUMBAR SPINE WITH CORONAL AND SAGITTAL REFORMATIONS: Date: 12/11/17 HISTORY: Weakness, groin pain radiating to the stomach, weakness worsening in both legs. Low back pain exacerb ated by taking a step. FINDINGS: Comparison made with exam dated 10/22/17. Postop changes of L3, L4, and L5 laminectomies, and pedicle screws fusing L3-L4 levels are again seen . Intervertebral disc hardware at L3-[address]. L3 and L4 pedicle screws are in good p osition without evidence of fracture or loosening. No evidence of fracture or subluxation is seen. Anterior and posterior osteophytes at L4-5 level are again noted. Neural foramina remain patent at all levels. No significant central canal stenosis is se en. IMPRESSION: Stable exam. No acute process. POS: [facility]
--- NOTE | 2017-12-11 14:30 | PRG ---
DATE OF SERVICE: 12/11/2017 This is a 30-minute initial hospital visit note in which 30 minutes were spent in review of the imagi ng record, evaluation, examination of the patient, and formulation of plan. Greater than 50% of the time was spent in counseling on Mr. Melvin Zee. CHIEF COMPLAINT: Report of recurring paresthesias in a saddle region and lower extremities with hist ory of lumbar stenosis with improvement in symptoms following decompression and fusion with morbid ob esity. HISTORY OF PRESENT ILLNESS: Mr. Zee is a 42-year-old man well known to our neurosurgical service. He and his family have contacted the office multiple times regarding various symptoms. He reported a recurrent saddle sensory loss and bowel and bladder difficulty. He presented. A CT scan demonstr ates well positioned hardware with no evidence of hardware malfunction, a well decompressed canal of the multiple levels. PHYSICAL EXAMINATION: The patient is alert and appropriate. He is morbidly obese. He moves all ext remities to command frankly. Good strength throughout his isolated lower extremity myotomes. His re ctal tone is intact and his perineal sensation also appears to be intact on my exam to light touch. At times, he report that he feels light touch sensation even when I am not touching his perineal chandrika on to assess, which provides inconsistencies in the exam frankly. IMPRESSION AND PLAN: I have let the patient's know that his CT and neurological exam appeared t o be stable. I do not think it is necessary to pursue inpatient admission as I can see no evidence o f acute neurosurgical issue here. I can see no evidence of neurosurgical issue involved. DIAGNOSES: 1. History of lumbar stenosis with improvement following decompression fusion. 2. Morbid obesity.
== END 2017-12-11 13:35 | disposition home or self-care (01) ==
LOC: ERS 09:55
DX: R10.30 Lower abdominal pain, unspecified (principal); R53.1 Weakness; M79.2 Neuralgia and neuritis, unspecified; E78.5 Hyperlipidemia, unspecified; I10 Essential (primary) hypertension; F32.9 Major depressive disorder, single episode, unspecified; Z79.899 Other long term (current) drug therapy
CPT/HCPCS: 36415; 72131; 80053; 85025; 85652; 86140; 96374; J2270

== ENCOUNTER 2018-07-06 17:12 | Emergency (ER) | payer OTHER, SELFPAY ==
[~2018-07-06 17:12] MED LIST changes: -Iopamidol-M 200 41% 20 ML VIAL ONE
--- NOTE | 2018-07-06 18:05 | RAD ---
ONE VIEW CHEST: HISTORY: Diaphoretic patient. Cough. Chest pain. COMPARISON: 10/26/2017 FINDINGS: A portable upright chest demonstrates cardiomegaly. The pulmonary vessels are within normal limits. There is interstitial prominence, without consolidation or mass. No pleural effusion or pneumothora x. IMPRESSION: Interstitial prominence, which is presumed to be due to edema. Infiltrate cannot be excluded. Radha nued surveillance is recommended. POS: [facility]
[2018-07-06 18:15] LABS: #Eosinphils 0.1 thou/uL (0.0-0.7); #Lymphocytes 0.8 thou/uL (1.20-3.40); #Monocytes 0.7 thou/uL (0.11-0.59); %Basophils 0.5 % (0.0-1.0); %Eosinophils 2.2 % (0.0-10.0); %Lymphocytes 14.5 % (21.0-51.0); %Monocytes 12.2 % (0.0-10.0); %Neutrophils 70.7 % (42.0-75.0); Hemoglobin 12.6 g/dL (14.0-18.0); Mean Corpuscular HGB CONC 31.6 g/dL (32.0-36.0); Mean Corpuscular Hemoglobin 27.7 pg (27.0-31.0); Mean Corpuscular Volume 87.7 fL (78.0-98.0); Mean Platelet Volume 7.4 fL (7.4-10.4); Platelet Count 254 thou/uL (130-400); RBC Distribution Width 15.3 % (11.5-14.5); Red Blood Cell (RBC) Count 4.55 mill/uL (4.70-6.10); White Blood Cell (WBC) Count 5.7 thou/uL (4.8-10.8)
[2018-07-06 18:36] LABS: ALT (SGPT) 68 U/L (8-55); AST (SGOT) 88 U/L (5-34); Albumin 3.9 g/dL (3.5-5.0); Alkaline Phosphatase 64 U/L (40-150); Anion Gap 10 mmol/L (10-20); BUN (Urea Nitrogen) 10 mg/dL (8.9-20.6); Bilirubin, Total 0.7 mg/dL (0.2-1.2); CK (CPK) 2521 U/L (30-200); Calc. Creatinine Clearance 0 mL/min (70-130); Carbon Dioxide 26 mmol/L (22-29); Chloride 103 mmol/L (98-107); Estimated GFR-MDRD 87; Globulin 3.6 g/dL (2.4-3.5); Glucose 107 mg/dL (70-105); Potassium 3.9 mmol/L (3.5-5.1); Protein, Total 7.5 g/dL (6.0-8.3); Sodium 135 mmol/L (136-145)
[2018-07-06 18:40] LABS: Troponin I Less than 0.010 ng/mL (< 0.028)
[2018-07-06 18:43] LABS: CKMB 6.8 ng/mL (0-6.6)
[2018-07-06 18:51] LABS: Magnesium 1.6 mg/dL (1.6-2.6)
[2018-07-06] MEDS ORDERED: Morphine 4 MG/ML VIAL ONE (18:53)
--- NOTE | 2018-07-06 21:32 | CT ---
CT ANGIOGRAM CHEST: HISTORY: Sore throat. Nausea. Cough. Chest tightness. COMPARISON: 06/28/2017 TECHNIQUE: A CT angiogram of the chest is performed in the axial plane, and three-dimensional reformatted images are submitted for interpretation. FINDINGS: The trachea and central bronchi are patent. There are dependent atelectatic changes. No consolidati on or mass. No pleural effusion or pneumothorax. No mediastinal mass, lymphadenopathy, or hematoma. There is stable stranding of the anterior mediast inal fat. Heart size is normal. No pericardial effusion. The visualized aorta has a normal caliber . No periaortic fat stranding. The visualized upper solid organs are unremarkable. Limited evaluation of the pulmonary arterial system, to the level of the lobar arteries, due t poor t iming of contrast bolus. Evaluation of the segmental and subsegmental arteries is limited. No evide nce of filling defect to the level of the lobar arteries. No lytic or blastic lesions in the osseous structures. IMPRESSION: Limited evaluation due to timing of contrast bolus. No evidence of pulmonary artery embolism to the level of the lobar arteries. POS: [facility]
== END 2018-07-06 23:40 | disposition home or self-care (01) ==
LOC: ERS 17:12
DX: J18.9 Pneumonia, unspecified organism (principal); E78.5 Hyperlipidemia, unspecified; I10 Essential (primary) hypertension; F32.9 Major depressive disorder, single episode, unspecified; Z79.899 Other long term (current) drug therapy
CPT/HCPCS: 36415; 71045; 71275; 80053; 82550; 82553; 83690; 83735; 84484; 85025; 85379; 87804; 93005; 96374; J2270

== ENCOUNTER 2018-07-10 19:50 | Emergency (ER) | payer SELFPAY ==
[2018-07-10 21:21] LABS: #Lymphocytes 1.2 thou/uL (1.20-3.40); #Monocytes 0.3 thou/uL (0.11-0.59); #Neutrophils 7.7 thou/uL (1.40-6.50); %Eosinophils 0.1 % (0.0-10.0); %Lymphocytes 12.8 % (21.0-51.0); %Monocytes 3.3 % (0.0-10.0); %Neutrophils 83.8 % (42.0-75.0); Hemoglobin 12.5 g/dL (14.0-18.0); Mean Corpuscular HGB CONC 32.4 g/dL (32.0-36.0); Mean Corpuscular Hemoglobin 28.2 pg (27.0-31.0); Mean Platelet Volume 7.2 fL (7.4-10.4); Platelet Count 271 thou/uL (130-400); RBC Distribution Width 14.9 % (11.5-14.5); Red Blood Cell (RBC) Count 4.44 mill/uL (4.70-6.10); White Blood Cell (WBC) Count 9.2 thou/uL (4.8-10.8)
--- NOTE | 2018-07-10 21:29 | RAD ---
PORTABLE UPRIGHT FRONTAL CHEST RADIOGRAPH 07/10/18 COMPARISON: 07/06/18 HISTORY: Cough, chest tightness, pneumonia. FINDINGS: The cardiac silhouette appears enlarged. A stable finding. No pneumothorax, pleural fluid, focal cons olidation, or alveolar edema. IMPRESSION: Stable appearance of the chest/no acute findings. POS: [facility]
[2018-07-10 21:43] LABS: ALT (SGPT) 75 U/L (8-55); AST (SGOT) 50 U/L (5-34); Albumin 3.8 g/dL (3.5-5.0); Alkaline Phosphatase 65 U/L (40-150); Anion Gap 15 mmol/L (10-20); BUN (Urea Nitrogen) 12 mg/dL (8.9-20.6); Bilirubin, Total 0.4 mg/dL (0.2-1.2); CK (CPK) 115 U/L (30-200); Calc. Creatinine Clearance 0 mL/min (70-130); Calcium 8.9 mg/dL (7.8-10.44); Carbon Dioxide 23 mmol/L (22-29); Chloride 102 mmol/L (98-107); Estimated GFR-MDRD 63; Globulin 3.2 g/dL (2.4-3.5); Glucose 127 mg/dL (70-105); Potassium 4.3 mmol/L (3.5-5.1); Sodium 136 mmol/L (136-145)
[2018-07-10] MEDS ORDERED: HYDROcodone/Acetaminophen 5/325 mg Tablet ONE (21:44)
[2018-07-10 21:46] LABS: CKMB 2.2 ng/mL (0-6.6); Troponin I Less than 0.010 ng/mL (< 0.028)
== END 2018-07-10 22:40 | disposition home or self-care (01) ==
LOC: ERS 19:50
DX: R07.89 Other chest pain (principal); E78.5 Hyperlipidemia, unspecified; F32.9 Major depressive disorder, single episode, unspecified; Z79.899 Other long term (current) drug therapy; Z79.891 Long term (current) use of opiate analgesic
CPT/HCPCS: 71045; 80053; 82553; 83690; 84484; 85025; 93005

== ENCOUNTER 2018-07-17 19:42 | Emergency (ER) | payer SELFPAY ==
[2018-07-17 20:34] LABS: #Eosinphils 0.2 thou/uL (0.0-0.7); #Lymphocytes 1.9 thou/uL (1.20-3.40); #Monocytes 0.8 thou/uL (0.11-0.59); #Neutrophils 7.8 thou/uL (1.40-6.50); %Basophils 0.4 % (0.0-1.0); %Eosinophils 1.4 % (0.0-10.0); %Lymphocytes 17.8 % (21.0-51.0); %Monocytes 7.4 % (0.0-10.0); Hemoglobin 14.8 g/dL (14.0-18.0); Mean Corpuscular HGB CONC 31.8 g/dL (32.0-36.0); Mean Corpuscular Hemoglobin 27.8 pg (27.0-31.0); Mean Corpuscular Volume 87.3 fL (78.0-98.0); Mean Platelet Volume 7.4 fL (7.4-10.4); Platelet Count 384 thou/uL (130-400); Red Blood Cell (RBC) Count 5.33 mill/uL (4.70-6.10); White Blood Cell (WBC) Count 10.7 thou/uL (4.8-10.8)
[2018-07-17 20:45] LABS: ALT (SGPT) 37 U/L (8-55); AST (SGOT) 19 U/L (5-34); Albumin 4.4 g/dL (3.5-5.0); Alkaline Phosphatase 85 U/L (40-150); Anion Gap 16 mmol/L (10-20); BUN (Urea Nitrogen) 14 mg/dL (8.9-20.6); Calc. Creatinine Clearance 0 mL/min (70-130); Calcium 9.9 mg/dL (7.8-10.44); Carbon Dioxide 21 mmol/L (22-29); Chloride 102 mmol/L (98-107); Estimated GFR-MDRD 65; Globulin 4.5 g/dL (2.4-3.5); Glucose 123 mg/dL (70-105); Potassium 3.9 mmol/L (3.5-5.1); Protein, Total 8.9 g/dL (6.0-8.3); Sodium 135 mmol/L (136-145)
[2018-07-17 20:49] LABS: CKMB 1.8 ng/mL (0-6.6); Troponin I Less than 0.010 ng/mL (< 0.028)
--- NOTE | 2018-07-17 21:11 | RAD ---
CHEST TWO VIEWS: 07/17/18 HISTORY: Pneumonia. Heart size and mediastinum are within normal limits. Some minimally increased markings in the region of the lingula. In reviewing a 07/10/18 exam, changes appear more prominent than on that prior study. IMPRESSION: Minimally increased interstitial markings in the region of the lingula raising the possibility of traci e early infiltrate. POS: [facility]
[2018-07-18 00:03] LABS: Bilirubin Negative (Negative); Blood, Urine Negative (Negative); Clarity CLEAR (Clear); Glucose, Urine (Dipstick) Negative (Negative); Leukocyte Negative (Negative); Nitrite Negative (Negative); Protein, Urine (Dipstick) Trace mg/dL (Neg-Trace); Specific Gravity, Urine 1.021 (1.002-1.036); Urobilinogen 0.2 mg/dL (0.2-1.0); pH, Urine 5.5 (5.0-9.0)
--- NOTE | 2018-07-18 07:56 | CT ---
PRELIMINARY REPORT/[facility]/EMERGENCY AFTER HOURS PROCEDURE: EXAM: CT Angiography Chest With Intravenous Contrast CLINICAL HISTORY: 42 years old, male; Signs and symptoms; Cough and shortness of breath; Patient HX: M42 presents to [facility] ed C/O chest wall pain onset one week ago due to pneumonia, with new onset of abd pain in rlq for p ast x2 days. Pt was dx with pneumonia and sent home on steroids and strong abx one week ago. reports pt has had n/v/d, cough and SOB TECHNIQUE: Axial computed tomographic angiography images of the chest with intravenous contrast using pulmonary embolism protocol. MIP reconstructed images were created and reviewed. COMPARISON: No relevant prior studies available. FINDINGS: Pulmonary arteries: No pulmonary embolism. Aorta: No acute findings. Lungs: Patchy groundglass minimal nodular opacities throughout the left lung, likely areas of pneumon itis/pneumonia. Pleural space: Normal. No significant effusion. No pneumothorax. Heart: Normal. Bones/joints: Multilevel thoracic spine degenerative changes. No acute fracture. No dislocation. Soft tissues: Normal. Lymph nodes: Normal. Gallbladder and bile ducts: Gallbladder is surgically absent. IMPRESSION: 1. No pulmonary embolism. 2. Patchy groundglass minimal nodular opacities throughout the left lung, likely areas of pneumonitis /pneumonia. 3. Incidental/non-acute findings are described above. Thank you for allowing us to participate in the care of your patient. Dictated and Authenticated by: Ancelmo Flood MD 07/18/2018 1:27 AM Central Time ([place] & [place]) FINAL REPORT CT ANGIOGRAM CHEST WITH 3D RENDERING: Date: 07/17/18 HISTORY: 42-year-old male with history of cough, shortness of breath, and chest pain. FINDINGS: There is patchy interstitial and fine alveolar nodular parenchymal changes in the left upper lobe, li ngula, and left lower lobe, evidence for pneumonia/pneumonitis without significant confluent process. The right lung shows some very minimal patchy ground-glass opacity changes in the right lower lobe. There is no convincing CT evidence for acute pulmonary embolism. No mediastinal mass or adenopathy. S mall left pleural effusion. No evidence of aortic aneurysm or dissection. Visualized upper abdomen is unremarkable. IMPRESSION: No convincing CT evidence for acute pulmonary embolism. Patchy fine alveolar and interstitial parench ymal changes in the left lung, evidence for patchy left lung pneumonia/pneumonitis. Very subtle groun d-glass opacity changes in the right lower lobe, probably small patchy pneumonitis. Small left pleura l effusion. Other findings as above. Report in agreement with preliminary report given on-call by [facility]. POS: [facility]
== END 2018-07-18 02:18 | disposition home or self-care (01) ==
LOC: ERS 19:42
DX: J18.9 Pneumonia, unspecified organism (principal); E78.5 Hyperlipidemia, unspecified; I10 Essential (primary) hypertension; F32.9 Major depressive disorder, single episode, unspecified; Z79.899 Other long term (current) drug therapy; Z79.891 Long term (current) use of opiate analgesic
CPT/HCPCS: 36415; 71046; 71275; 80053; 81003; 82553; 84484; 85025; 93005

== ENCOUNTER 2018-08-25 14:09 | Emergency (ER) | payer SELFPAY ==
--- NOTE | 2018-08-25 15:31 | RAD ---
RIGHT SHOULDER THREE VIEWS: 08/25/18 HISTORY: One week of pain. COMPARISON: None. FINDINGS: Glenohumeral joint space is preserved. No fracture or dislocation. The visualized right ribs are unr emarkable. IMPRESSION: No fracture or dislocation. POS: [facility]
== END 2018-08-25 15:25 | disposition home or self-care (01) ==
LOC: ERS 14:09
DX: M25.511 Pain in right shoulder (principal); E78.5 Hyperlipidemia, unspecified; I10 Essential (primary) hypertension; F32.9 Major depressive disorder, single episode, unspecified; Z79.899 Other long term (current) drug therapy; X50.9XXA Other and unspecified overexertion or strenuous movements or postures, initial encounter

== ENCOUNTER 2019-03-11 18:48 | Emergency (ER) | payer SELFPAY ==
--- NOTE | 2019-03-11 20:33 | RAD ---
EXAM: Two views chest PROVIDED CLINICAL HISTORY: Chest pain COMPARISON: 07/17/2018 FINDINGS: Cardiac silhouette and pulmonary vasculature are within normal limits. The lungs are clear. Intersti tial prominence in the region of the lingula noted on the prior study has resolved. Osseous structures have a normal appearance. IMPRESSION: No acute cardiopulmonary process.
[2019-03-11] MEDS ORDERED: HYDROcodone/Acetaminophen 5/325 mg Tablet ONE (22:07)
--- NOTE | 2019-03-13 15:14 | EKG ---
Test Reason : Blood Pressure : / mmHG Vent. Rate : 093 BPM Atrial Rate : 093 BPM P-R Int : 156 ms QRS Dur : 082 ms QT Int : 342 ms P-R-T Axes : 051 045 046 degrees QTc Int : 425 ms Normal sinus rhythm Possible Left atrial enlargement Borderline ECG Confirmed by OZZIE FRITZ ([id number]), continuity editor GINA DUGAN ([id number]) on 03/13/2019 3:13:55 PM Referred By: Confirmed By:OZZIE FRITZ
== END 2019-03-11 23:10 | disposition home or self-care (01) ==
LOC: ERS 18:48
DX: M54.5 Low back pain (principal); M54.6 Pain in thoracic spine; F32.9 Major depressive disorder, single episode, unspecified; E78.5 Hyperlipidemia, unspecified; I10 Essential (primary) hypertension; Z79.899 Other long term (current) drug therapy
CPT/HCPCS: 36415; 71046; 84484; 93005

== ENCOUNTER 2019-12-27 20:33 | Emergency (ER) | payer BC ==
[2019-12-27] MEDS ORDERED: Fentanyl 100 MCG/2 ML VIAL ONE ×2 (21:07→22:34)
[2019-12-27] MEDS ORDERED: predniSONE 20 MG TAB ONE (22:34)
--- NOTE | 2019-12-28 01:30 | CON ---
DATE OF CONSULTATION: CHIEF COMPLAINT: Low back pain, difficulty walking. HISTORY OF PRESENT ILLNESS: Mr. Zee is a 44-year-old male with history of decompression from L3-S1 as well as L3-4 fusion for unstable spondylolisthesis. Surgery was performed in June due to a cauda equina syndrome from his longstanding stenosis and some new worsening symptoms. He complains of some numbness and weakness in his legs. Having difficulty walking and supporting himself. The symptoms came on about 3 days ago. Strength in his legs is becoming worse. States his legs gave out and fell one time during the 3 days. He can walk about 10 feet before he has to offload. 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 He denies any lifting at his job. PAST MEDICAL HISTORY: Hypertension, hyperlipidemia. PAST SURGICAL HISTORY: Cholecystectomy, spinal fusion. SOCIAL HISTORY: Denies smoking. Denies alcohol. Denies illicit drugs. ALLERGIES: NSAIDS, TRAMADOL, TORADOL, AND REGLAN. FAMILY HISTORY: Father alive with heart disease. Mother alive, stage IV stomach cancer, diagnosed stroke. REVIEW OF SYSTEMS: CONSTITUTION: Denies fever or chills. ENT: Denies change in vision or hearing. CARDIAC: Denies chest pain, shortness of breath, diaphoresis. PULMONARY: Denies shortness of breath, cough, hemoptysis. GASTROINTESTINAL: Denies abdominal pain, nausea, vomiting, diarrhea, change in stool formation or consistency. GENITOURINARY: Denies trouble with urination, frequency of urination, or bloody urine. SKIN: Denies skin rash, bruising, bleeding, skin masses. MUSCULOSKELETAL: As per history of present illness. NEUROLOGICAL: As per history of present illness. PSYCHOLOGICAL: Denies anxiety, depression, behavior changes, or crying. PHYSICAL EXAMINATION: VITALS: Height is 6 feet 6 inches. He weighs 397 pounds. HEENT: Pupils are equal. Extraocular movements are intact. NECK: Soft, supple. No masses are noted. Range of motion intact and nonpainful. NEUROLOGICAL: Awake, alert, and oriented x3. Memory, attention, fund of knowledge normal. Cranial nerves 2 through 12 grossly intact. EXTREMITIES: Lower extremities; 5/5 iliopsoas, quadriceps, hamstrings, anterior tib, EHL, and gastrocnemius. There is no area of dermatomal sensory loss. Reflexes are symmetric. Toes are downgoing. GAIT: Via wheelchair. IMAGING: On MRI, there is some room in the canal. MRI of the L-spine was an open MRI lacking clarity. We would recommend that he would get a closed MRI and follow up in the office. PLAN: Mr. Zee was seen at [facility] in September for the same symptoms. Currently, he has sensation in the peritoneum and is able to hold back his urine. He has been unsuccessful in losing weight. Due to his size and weight, he would be a terrible surgical for risk. Because of it, he decided to go home with steroids, pain medications, and one week off from work. He will follow up in our clinic in 1 to 2 weeks. Job ID: [id number] [facility]
== END 2019-12-27 23:05 | disposition home or self-care (01) ==
LOC: ERS 20:33
DX: M54.16 Radiculopathy, lumbar region (principal); E78.5 Hyperlipidemia, unspecified; I10 Essential (primary) hypertension; Z79.899 Other long term (current) drug therapy
CPT/HCPCS: 96374; 96376; J3010; J7512

== ENCOUNTER 2020-01-11 10:40 | Inpatient (IN) | payer BC ==
[2020-01-11] MEDS ORDERED: Dexamethasone 10 MG/ML VIAL ONE (11:55)
[2020-01-11] MEDS ORDERED: Fentanyl 100 MCG/2 ML VIAL ONE ×2 (11:55→14:37)
[2020-01-11] MEDS ORDERED: Lorazepam 2 MG/ML VIAL ONE (11:55)
[2020-01-11 12:04] LABS: Hemoglobin 16.4 g/dL (14.0-18.0); Mean Corpuscular HGB CONC 32.7 g/dL (32.0-36.0); Mean Corpuscular Hemoglobin 28.3 pg (27.0-31.0); Mean Corpuscular Volume 86.7 fL (78.0-98.0); Mean Platelet Volume 7.6 fL (7.4-10.4); Platelet Count 376 thou/uL (130-400); RBC Distribution Width 13.1 % (11.5-14.5); Red Blood Cell (RBC) Count 5.79 mill/uL (4.70-6.10); White Blood Cell (WBC) Count 22.3 thou/uL (4.8-10.8)
[2020-01-11 12:25] LABS: ALT (SGPT) 36 U/L (8-55); AST (SGOT) 14 U/L (5-34); Albumin 4.2 g/dL (3.5-5.0); Alkaline Phosphatase 76 U/L (40-110); Anion Gap 13 mmol/L (10-20); BUN (Urea Nitrogen) 27 mg/dL (8.9-20.6); Bilirubin, Total 1.1 mg/dL (0.2-1.2); Calc. Creatinine Clearance 0 mL/min (70-130); Calcium 8.7 mg/dL (7.8-10.44); Carbon Dioxide 23 mmol/L (22-29); Chloride 102 mmol/L (98-107); Estimated GFR-MDRD 73; Globulin 3.2 g/dL (2.4-3.5); Glucose 106 mg/dL (70-105); Potassium 4.2 mmol/L (3.5-5.1); Protein, Total 7.4 g/dL (6.0-8.3); Sodium 134 mmol/L (136-145)
[2020-01-11 12:29] LABS: Prothrombin Time 13.4 SEC (12.0-14.7)
[2020-01-11 12:30] LABS: PTT 26.5 SEC (22.9-36.1)
[2020-01-11 12:36] LABS: Band 9 % (5-11); Lymphocytes 13 % (21-51); MDiff Complete? YES; Monocytes 6 % (0-10); Neutrophil 72 % (42-75); Platelet Morphology Comment Appears Adequate; RBC Morphology Normal
[2020-01-11 13:01] LABS: Bilirubin Negative (Negative); Blood, Urine Negative (Negative); Clarity Clear (Clear); Glucose, Urine (Dipstick) Normal (Negative); Leukocyte Negative Leu/uL (Negative); Nitrite Negative (Negative); Protein, Urine (Dipstick) 20 mg/dL (Neg-Trace); Urobilinogen Normal mg/dL (Less than 2)
[2020-01-11] MEDS ORDERED: Acetaminophen 325 MG TAB PO PRN (14:34)
[2020-01-11] MEDS ORDERED: Acetaminophen/Codeine 30-300mg Tablet PO PRN (14:36)
[2020-01-11] MEDS: Cyclobenzaprine 10 MG TAB PO SCH ×2 (16:30→19:56)
[2020-01-11] MEDS ORDERED: CEFAZOLIN 2 GM in Premix Bag 1 BAG IVPB SCH (18:00)
[2020-01-11 18:04] VITALS: BMI 43.4
[2020-01-11] MEDS: Sodium Chloride 0.9% 1,000 ML IV SCH (18:27)
--- NOTE | 2020-01-11 18:42 | HP ---
CHIEF COMPLAINT: Lower back pain. HISTORY OF PRESENT ILLNESS: The patient is a very pleasant 44-year-old male, with a history of obesity, history of Clostridium difficile, spinal fusion in the past, and hypertension, who presents to the hospital with complaints of lower back pain and numbness ongoing for the past 2 weeks. The patient stated that he has been having a cold sensation which started at the bottom of his foot, radiating all the way up to his lower extremities. He stated that since 6 days he has fallen 3 times, felt pain and generalized weakness to his lower extremities. He denies any fevers or chills. The patient states that he has been taking the hydrocodone without any benefits. He apparently had an MRI done on 01/02, which I was not able to see, but I was told that he had some spinal stenosis that was noted in the MRI. The patient denies any urinary or bladder incontinence. He states that at times when he goes to the bathroom, long enough, so he has been incontinent on himself. PAST MEDICAL HISTORY: He has a history of hypertension. He has a history of Clostridium difficile. He also has a history of cauda equina syndrome. PAST SURGICAL HISTORY: He has a spinal fusion in 2017, gallbladder removed, and partial liver removed from infection according to the patient. REVIEW OF SYSTEMS: All negative except for the ones mentioned in the HPI. ALLERGIES: HE IS ALLERGIC TO TORADOL, METOCLOPRAMIDE, AND TROMETHAMINE. MEDICATIONS: He is on; 1. Atorvastatin. 2. Hydrocodone. 3. Losartan. FAMILY HISTORY: Mother has a history of diabetes. PHYSICAL EXAMINATION: VITAL SIGNS: As of the following; temperature of 98.8, heart rate of 80, respirations 16, O2 saturation 98% on room air, and blood pressure of 130/60. GENERAL: He is awake, alert, and oriented x3. Does not appear in distress. CV: S1, S2 present. No murmurs, rubs, or gallops. LUNGS: Clear to auscultation. No rhonchi or wheezes noted. ABDOMEN: Soft and nontender. Bowel sounds present x2. EXTREMITIES: Mild lower extremity pedal edema. Pedal pulses are present x2. NEUROVASCULAR: He is able to lift his right and left leg against resistance with some pain to his lower back while lifting his right leg greater than left. Sensation to bilateral lower extremities intact. He does have pain upon palpation to the thoracic all the way to his lumbar spine and also pain on palpation to his right and left hip areas. Again, his sensation has been intact bilaterally. SKIN: No cuts, lesions, or bruises noted. LABORATORY RESULTS: WBCs of 22,000; hemoglobin of 16.6; hematocrit of 50.2; and platelets of 376. Chemistry; sodium of 134, potassium of 4.2, BUN of 27, and creatinine of 1.10. ASSESSMENT AND PLAN: The patient is a very pleasant 44-year-old male who presents to the hospital with complaints of lower back pain and temperature changes to his bilateral lower extremities going on for the past couple of weeks, worsening in the past few days. 1. Lumbar radiculopathy. I was unable to review the MRI; however, I was told that he has some stenosis. I will get Neurosurgery to evaluate this patient for possible surgical intervention. We will keep him n.p.o. after midnight. He was started on some pain medications with muscle relaxants and continue to monitor. 2. Hypertension. We will continue his home medication. 3. Obesity. The patient has been educated on diet and exercise. 4. Deep venous thrombosis prophylaxis. We will put the patient on SCDs. Job ID: [id number]
[2020-01-11] MEDS: Gabapentin 400 MG CAP PO SCH (19:56)
[2020-01-11] MEDS: Atorvastatin Calcium 40 MG TAB PO SCH (19:56)
--- NOTE | 2020-01-11 19:58 | HP ---
CHIEF COMPLAINT: "I'm here for repeat back surgery." HISTORY OF PRESENT ILLNESS: Mr. Zee is a 44-year-old gentleman with history of cauda equina syndrome from 2017 prompting emergency laminectomy and L3-4 fusion. He presently complains of new worsening symptoms accompanied by numbness and weakness in his legs, which he has been to the emergency room for and had steroids. Pain becomes worse as he walks and the distance he can walk has become shorter due to his pain in his bilateral legs. He states he cannot even walk 5 feet before he has to offload. He describes weakness in his legs to the point that he has fallen. Luckily, he still has good strength in all his muscle groups and intact sensation. Denies sensory loss, perineal, saddle numbness, or bladder or bowel dysfunction. PAST MEDICAL HISTORY: Cauda equina, hypertension, lumbar spinal fusion, cholecystectomy. SOCIAL HISTORY: The patient denies alcohol use. Denies drug use. Has no smoking history. Lives at home with his family. ALLERGIES: COMPAZINE, KETOROLAC, NSAIDS, ZOFRAN, PREGABALIN, PROCHLORPERAZINE, REGLAN (METOCLOPRAMIDE), TORADOL, AND TRAMADOL. Denies anaphylaxis. CURRENT MEDICATIONS: 1. Atorvastatin 40 mg. 2. Losartan 100 mg. 3. Gabapentin 600 mg. 4. Promethazine 25 mg. 5. Clonazepam 1 mg. 6. [place] 10/325 mg. 7. Dexamethasone 0.5 mg. REVIEW OF SYSTEMS: CONSTITUTIONAL: Denies fever or chills. ENT: Denies change in vision or hearing. CARDIAC: Denies chest pain, shortness of breath, or diaphoresis. PULMONARY: Denies shortness of breath, cough, or hemoptysis. GI: Denies abdominal pain, nausea, vomiting, diarrhea, change in stool formation, or consistency. : Denies trouble with urination, frequency of urination, or bloody urine. SKIN: Denies rash, bruising, bleeding, or skin masses. MUSCULOSKELETAL: As per history of present illness. NEUROLOGIC: As per history of present illness. PSYCHOLOGICAL: Denies anxiety, depression, behavior changes, or crying. PHYSICAL EXAMINATION: VITAL SIGNS: Blood pressure 135/87, temperature 97.9, respiratory rate 17, pulse 70, height 6 feet 3 inches, weight 400 pounds. HEENT: Pupils are equal. Extraocular movements are intact. NECK: Soft, supple. No masses are noted. Range of motion intact and nonpainful. NEUROLOGIC: Awake, alert, and oriented x3. Memory, attention, fund of knowledge normal. Cranial nerves 2 through 12 grossly intact. Gait and station uses arms to get up on a walker. It takes some time a few steps to take to get his balance due to numbness. Motor exam, ability to move legs. Sensory exam, S1, some L5 and L4 numbness. Anterior thighs numbness greater than posterior thigh. IMAGING: MRI evidence of port decompression with fusion, L2-L3 stenosis above the fusion, moderate at least. There is some CSF visible anterior to the nerves even in the tightest area. ASSESSMENT: 1. Spinal stenosis of lumbar region with neurogenic claudication. 2. Idiopathic progression neuropathy. PLAN: Repeat lumbar laminectomy. INFORMED CONSENT: We discussed the indications, risks, benefits, alternatives, and expected results from surgery. The risks discussed included, but were not limited to, bleeding, infection, CSF leak, nerve damage, weakness, incontinence, cauda equina injury, arachnoiditis, paralysis, ventilator dependency, wheelchair dependency, loss of vision, cardiopulmonary complications of anesthesia, or . Long-term complications discussed included, but were not limited to spinal instability and future surgery. He understands the risks and is willing to proceed. Urgent COVID surgery: In our medical judgment, the patient has serious medical condition and this surgery is medically necessary. In our medical judgment delaying the surgery or procedure, would put the patient at risk for serious adverse consequences. We have been approved by the facility review process to proceed for the benefit of the patient. Job ID: [id number] MTDD
[2020-01-11] MEDS: Morphine 4 MG/ML VIAL SLOW IVP PRN (20:51)
[2020-01-11] MEDS: clonazePAM 1 MG TAB PO PRN (23:39)
[2020-01-11] MEDS: HYDROcodone/Acetaminophen 10/325 mg Tablet PO PRN (23:52)
[2020-01-11] MEDS ORDERED: Morphine 2 MG/ML SYRINGE SLOW IVP SCH (23:59)
[2020-01-12] MEDS: HYDROcodone/Acetaminophen 10/325 mg Tablet PO PRN ×2 (03:37→18:03)
[2020-01-12] MEDS: Morphine 4 MG/ML VIAL SLOW IVP PRN ×2 (03:37→19:36)
[2020-01-12 05:04] LABS: #Basophils 0.2 thou/uL (0.0-0.2); #Lymphocytes 2.5 thou/uL (1.20-3.40); #Monocytes 1.4 thou/uL (0.11-0.59); %Basophils 0.9 % (0.0-1.0); %Eosinophils 0.1 % (0.0-10.0); %Lymphocytes 11.9 % (21.0-51.0); %Monocytes 6.4 % (0.0-10.0); %Neutrophils 80.6 % (42.0-75.0); Hemoglobin 15.5 g/dL (14.0-18.0); Mean Corpuscular HGB CONC 34.9 g/dL (32.0-36.0); Mean Corpuscular Hemoglobin 30.7 pg (27.0-31.0); Mean Corpuscular Volume 88.1 fL (78.0-98.0); Mean Platelet Volume 6.9 fL (7.4-10.4); Platelet Count 312 thou/uL (130-400); RBC Distribution Width 12.8 % (11.5-14.5); Red Blood Cell (RBC) Count 5.06 mill/uL (4.70-6.10); White Blood Cell (WBC) Count 21.1 thou/uL (4.8-10.8)
[2020-01-12 05:08] LABS: Hemoglobin A1c 6.2 % (4.0-6.0)
[2020-01-12 05:19] LABS: Anion Gap 11 mmol/L (10-20); BUN (Urea Nitrogen) 32 mg/dL (8.9-20.6); Calc. Creatinine Clearance 223 mL/min (70-130); Calcium 7.9 mg/dL (7.8-10.44); Carbon Dioxide 23 mmol/L (22-29); Chloride 101 mmol/L (98-107); Estimated GFR-MDRD 78; Glucose 119 mg/dL (70-105); Potassium 4.2 mmol/L (3.5-5.1); Sodium 131 mmol/L (136-145)
[2020-01-12] MEDS ORDERED: Bupivacaine PF 0.5% 30 ML VIAL ONE (06:25)
[2020-01-12] MEDS ORDERED: Thrombin 5000 UNITS/5 ML VIAL ONE (06:25)
[2020-01-12] MEDS ORDERED: EPINEPHrine 1 MG/ML AMP ONE (06:25)
[2020-01-12] MEDS: Sodium Chloride 0.9% 1,000 ML IV SCH ×2 (07:43→17:03)
[2020-01-12] MEDS ORDERED: Dextrose 5% in Water 1,000 ML IV PRN (07:58)
[2020-01-12] MEDS ORDERED: Dextrose 50% Abboject 50 ML SYRINGE SLOW IVP PRN (07:58)
[2020-01-12] MEDS ORDERED: Midazolam HCl 2 mg/2 ml Vial ONE (08:06)
[2020-01-12] MEDS ORDERED: Fentanyl 100 MCG/2 ML VIAL ONE ×3 (08:15→14:43)
[2020-01-12] MEDS ORDERED: Famotidine/PF 20 mg/2ml Vial ONE (08:16)
[2020-01-12] MEDS ORDERED: SUGAMMADEX SODIUM 500 MG/5 ML VIAL ONE (08:26)
[2020-01-12] MEDS ORDERED: CEFAZOLIN 2 GM in Premix Bag 1 BAG IVPB SCH (08:30)
[2020-01-12] MEDS ORDERED: CEFAZOLIN 1 GM VIAL SLOW IVP SCH (08:30)
[2020-01-12] MEDS ORDERED: Enoxaparin Sodium 40 MG/0.4 ML SYRINGE SC SCH (09:00)
--- NOTE | 2020-01-12 09:14 | PRG ---
DATE OF SERVICE: 01/12/2020 SUBJECTIVE: I saw Mr. Zee in his hospital room this morning on the third floor at around 5:45 a.m. Mr. Zee is a patient from my Neurosurgery Clinic. He was originally in [facility] in 2016. He came to the emergency department in June 2017 with cauda equina syndrome, and we were forced to decompress and fuse his stenotic and unstable spine. I told him to lose weight in the subsequent years, but he has not done so. He has been in and out of emergency department over the past few weeks and been seen in our Neurosurgery Clinic for pain and sensory symptoms down both legs. This started approximately 3 weeks ago. It has progressively gotten worse. We tried to manage this at home with steroids and rest. But now when he gets up, his legs go numb, he cannot walk very far. He is concerned he is losing neurological function and he came back to the emergency department. He still weighs nearly 400 pounds. OBJECTIVE: On examination this morning, Mr. Zee is awake and alert, complains of numbness from about L2 down in both legs and although he complains of weakness. He clearly has antigravity strength in all the muscles of his lower extremities. The pain is significant in the back and radiating to the legs. ASSESSMENT AND PLAN: I already discussed with him at our last appointment the high risk of surgical intervention. At that appointment, we discussed indications, risks, benefits, and alternatives to surgery for this. The risks we discussed included, but were not limited to bleeding, infection, CSF leak, nerve damage, paralysis, incontinence, wheelchair dependence, major blood vessel injury, wound healing complications, cardiopulmonary complications of anesthesia, and . The added risk during this time is COVID-19 infection. There is risk to the surgical providers as well. He understands all the risks and wants to proceed. We will take him to the operating room. Job ID: [id number] MTDD
[2020-01-12] MEDS: Gabapentin 400 MG CAP PO SCH ×3 (10:00→20:49)
[2020-01-12] MEDS: Cyclobenzaprine 10 MG TAB PO SCH ×3 (10:00→20:49)
[2020-01-12] MEDS ORDERED: PROPOFOL 200 MG/20 ML VIAL ONE (10:59)
[2020-01-12] MEDS ORDERED: Lidocaine 1% PF 5 ML VIAL ONE (10:59)
[2020-01-12] MEDS ORDERED: Vecuronium 10 MG VIAL ONE (10:59)
[2020-01-12] MEDS ORDERED: Ketorolac Tromethamine 30 MG/ML VIAL ONE (10:59)
[2020-01-12] MEDS ORDERED: Dexamethasone 20 MG/5 ML VIAL ONE (10:59)
[2020-01-12] MEDS ORDERED: Metoprolol Tartrate 5 MG/5 ML VIAL ONE (10:59)
[2020-01-12] MEDS ORDERED: Rocuronium Bromide 10 MG/ML (10ML VIAL) ONE (10:59)
[2020-01-12] MEDS ORDERED: Metoclopramide HCl 10 MG/2 ML VIAL ONE (10:59)
[2020-01-12] MEDS ORDERED: Ondansetron PF 4 MG/2 ML Vial ONE (10:59)
[2020-01-12] MEDS ORDERED: HYDROmorphone 2 MG/ML VIAL SLOW IVP PRN (14:15)
[2020-01-12] MEDS ORDERED: Promethazine HCl 25 MG/ML VIAL IM PRN (14:15)
[2020-01-12] MEDS ORDERED: Ondansetron HCl/PF 4 MG/2 ML Vial IVP PRN (14:15)
[2020-01-12] MEDS ORDERED: Promethazine HCl 25 MG/ML VIAL SLOW IVP PRN (14:15)
--- NOTE | 2020-01-12 14:45 | RAD ---
Exam: Chest one view HISTORY:Leukocytosis Comparison: 03/11/2019 FINDINGS: Cardiac silhouette: Normal Aorta: Unremarkable Pulmonary vessels: Normal Costophrenic angles: Clear LUNGS: No masses or consolidation. Pneumothorax: None Osseous abnormalities: None IMPRESSION: No acute cardiopulmonary process.
--- NOTE | 2020-01-12 15:03 | OP ---
DATE OF PROCEDURE: 01/12/2020 T[place]ONER OPERATOR: Jerrod Mcintyre PA-C PREOPERATIVE INDICATION: Treat pain and prevent neurological deterioration. PREOPERATIVE DIAGNOSIS: Adjacent segment stenosis above a prior fusion at L2-L3 with rapidly progressive neurogenic claudication leading towards cauda equina compression symptoms. POSTOPERATIVE DIAGNOSIS: Adjacent segment stenosis above a prior fusion at L2- L3 with rapidly progressive neurogenic claudication leading towards cauda equina compression symptoms. PROCEDURES PERFORMED: Reopening lumbar incision; re-exploration of fusion; decompressive laminectomy, medial facetectomy, foraminotomy, L2-L3; operating microscope. PREOPERATIVE MEDICATIONS: Ancef 2 g IV. DRAIN NUMBER: Zero. DRAIN TYPE: None. DESCRIPTION OF PROCEDURE: The patient was brought to the operating room. General endotracheal anesthesia was then induced using COVID-19 precautions. This obese gentleman was rolled carefully onto the Demar frame with the appropriate padding for the chest and hips. His previous incision was marked out and hair was removed with electric clippers. The lumbar skin was sterilely prepped and draped. We opened with a 10 blade knife and we controlled bleeding with bipolar and monopolar cautery. We dissected sharply down to the spinous process of L2. We incised the thoracolumbar fascia in the midline and reflected paraspinal muscles off the spinous process and lamina from the inferior portion of L1 down to the pedicle screws at L4. We identified the pedicle screw and ketan construct on either side and the fusion looks solid. We placed a self-retaining retractor. Starting at the top of L2, we used a high-speed drill to thin the lamina and we used Kerrison rongeurs to fashion a laminectomy from superior towards inferior. This was not possible to do safely without the operative microscope given the scar tissue. The operative microscope was brought into the field. Under microscopic magnification using microsurgical techniques, we continued our laminectomy inferiorly. We had used a high-speed drill to thin the lamina. At the L2-L3 interspace, we encountered a significant amount of overgrown scar tissue and facet hypertrophy. In fact, in multiple areas, there was bone and scar tissue densely adherent to the dura that we had to leave in place. The small islands of bone were left attached. We got a good decompression by performing medial facetectomies on both sides. We identified the L3 nerve roots in the lateral recess on either side. There was a small weakening of the dura over the right L3 nerve root and what seemed to be a Tarlov cyst or an arachnoid protrusion from dural opening. In either case, there was not a significant amount of CSF leaking. We made sure we decompressed from above the L2 pedicles to below the L3 pedicles and even toward the top of L4 vertebral body. We decompressed widely and the dura was responded nicely to decompression. We irrigated copiously with bacitracin irrigation. Over the opening in the dura on the right L3 root sleeve, we added DuraSeal tissue sealant, a pledget of muscle, and some more tissue sealant on top of that. We treated the wound with vancomycin powder and we closed in anatomical layers. We applied a sterile dressing. Due to the patient's size with one level revision laminectomy, took an extremely long amount of time because of multiple deep retractors, and microscopic magnification was needed, and scar tissue dissection was delicate and at quite a depth. Job ID: [id number] [facility]
[2020-01-12] MEDS ORDERED: Promethazine HCl 12.5 MG SUPP PR PRN (16:08)
[2020-01-12] MEDS ORDERED: Acetaminophen 650 MG Suppository PR PRN (16:08)
[2020-01-12] MEDS ORDERED: Milk Of Magnesia 30 ML UDCUP PO PRN (16:08)
[2020-01-12] MEDS ORDERED: Promethazine 25 MG TAB PO PRN (16:08)
[2020-01-12] MEDS ORDERED: Acetaminophen 325 MG TAB PO PRN (16:08)
[2020-01-12 17:35] LABS: Amphetamine Not Detected (NotDetected); Barbiturates Screen Not Detected (NotDetected); Benzodiazepine Screen Detected (NotDetected); Cocaine Metabolite Screen Not Detected (NotDetected); Medtox Control Line Valid? VALID (VALID); Medtox Reader # READER 1; Methadone Not Detected (NotDetected); Methamphetamine Not Detected (NotDetected); Opiate Screen Detected (NotDetected); Oxycodone Screen Not Detected (NotDetected); Phencyclidine (PCP) Not Detected (NotDetected); THC/Cannabinoid Screen Not Detected (NotDetected); Tricyclic Screen Detected (NotDetected)
[2020-01-12] MEDS: Cyclobenzaprine 10 MG TAB PO PRN (18:02)
[2020-01-12] MEDS: Atorvastatin Calcium 40 MG TAB PO SCH (20:47)
[2020-01-12] MEDS: clonazePAM 1 MG TAB PO PRN (20:47)
[2020-01-12] MEDS: Acetaminophen/Codeine 30-300mg Tablet PO PRN (20:47)
[2020-01-12] MEDS: CEFAZOLIN 2 GM in Premix Bag 1 BAG IVPB SCH (21:59)
[2020-01-12] MEDS: HumaLOG 300 UNITS/3 ML VIAL SC PRN (22:02)
[2020-01-13] MEDS: Morphine 4 MG/ML VIAL SLOW IVP PRN ×5 (00:18→22:33)
[2020-01-13] MEDS: Cyclobenzaprine 10 MG TAB PO PRN ×2 (02:51→12:11)
[2020-01-13] MEDS: Acetaminophen/Codeine 30-300mg Tablet PO PRN ×2 (02:51→22:29)
[2020-01-13] MEDS: Promethazine HCl 25 MG/ML VIAL IM PRN (05:05)
[2020-01-13] MEDS: CEFAZOLIN 2 GM in Premix Bag 1 BAG IVPB SCH (07:22)
[2020-01-13] MEDS: Sodium Chloride 0.9% 1,000 ML IV SCH ×2 (07:29→21:20)
[2020-01-13 08:09] LABS: #Lymphocytes 2.2 thou/uL (1.20-3.40); #Monocytes 1.9 thou/uL (0.11-0.59); #Neutrophils 14.6 thou/uL (1.40-6.50); %Basophils 0.3 % (0.0-1.0); %Eosinophils 0.1 % (0.0-10.0); %Lymphocytes 11.7 % (21.0-51.0); %Monocytes 10.2 % (0.0-10.0); %Neutrophils 77.8 % (42.0-75.0); Hemoglobin 12.9 g/dL (14.0-18.0); Mean Corpuscular HGB CONC 33.8 g/dL (32.0-36.0); Mean Corpuscular Hemoglobin 29.8 pg (27.0-31.0); Mean Corpuscular Volume 88.3 fL (78.0-98.0); Mean Platelet Volume 6.7 fL (7.4-10.4); Platelet Count 242 thou/uL (130-400); RBC Distribution Width 12.5 % (11.5-14.5); Red Blood Cell (RBC) Count 4.33 mill/uL (4.70-6.10); White Blood Cell (WBC) Count 18.8 thou/uL (4.8-10.8)
[2020-01-13] MEDS: HYDROcodone/Acetaminophen 10/325 mg Tablet PO PRN ×4 (08:38→20:38)
[2020-01-13 08:42] LABS: ALT (SGPT) 21 U/L (8-55); AST (SGOT) 14 U/L (5-34); Alkaline Phosphatase 56 U/L (40-110); Anion Gap 13 mmol/L (10-20); BUN (Urea Nitrogen) 37 mg/dL (8.9-20.6); Calc. Creatinine Clearance 202 mL/min (70-130); Calcium 7.2 mg/dL (7.8-10.44); Carbon Dioxide 21 mmol/L (22-29); Chloride 101 mmol/L (98-107); Estimated GFR-MDRD 70; Globulin 2.3 g/dL (2.4-3.5); Glucose 111 mg/dL (70-105); Potassium 4.1 mmol/L (3.5-5.1); Protein, Total 5.3 g/dL (6.0-8.3); Sodium 131 mmol/L (136-145)
[2020-01-13] MEDS: Gabapentin 400 MG CAP PO SCH ×3 (09:14→20:39)
[2020-01-13] MEDS: Cyclobenzaprine 10 MG TAB PO SCH ×3 (09:25→20:39)
[2020-01-13] MEDS: HumaLOG 300 UNITS/3 ML VIAL SC PRN (12:53)
--- NOTE | 2020-01-13 14:39 | PRG ---
DATE OF SERVICE: 01/13/2020 Mr. Zee is postop 1 day for a medically necessary urgent surgery. He had a L2-L3 laminectomy with decompression due to adjacent segment stenosis above his prior fusion in 2017. Today, when I saw Mr. Zee, he was awake and alert. His neuro exam was intact. He stated his numbness and weakness in his legs are pretty much gone. His lower back pain has significantly improved. He mentioned that his legs are no longer cold. His blood pressure is improving in the 130's, temperature is remaining 98 degrees and his white blood cells count is lower, which is most likely due to the steroids that he has been tanking the past 2 to 3 weeks. This morning, Mr. Zee was out of bed and working with physical therapy. We will discharge him to inpatient rehab once he has been accepted. If he is not accepted, he may be discharged home when he is safe for ADLS. Job ID: [id number] MTDD
[2020-01-13] MEDS: clonazePAM 1 MG TAB PO PRN (18:16)
[2020-01-13] MEDS: Atorvastatin Calcium 40 MG TAB PO SCH (20:39)
[2020-01-14] MEDS: HYDROcodone/Acetaminophen 10/325 mg Tablet PO PRN ×4 (02:41→17:11)
[2020-01-14] MEDS: clonazePAM 1 MG TAB PO PRN (02:44)
[2020-01-14] MEDS: Cyclobenzaprine 10 MG TAB PO PRN (05:18)
[2020-01-14] MEDS: Acetaminophen/Codeine 30-300mg Tablet PO PRN ×5 (05:18→21:50)
[2020-01-14] MEDS: Morphine 4 MG/ML VIAL SLOW IVP PRN ×7 (05:53→21:51)
[2020-01-14] MEDS: Sodium Chloride 0.9% 1,000 ML IV SCH (07:43)
--- NOTE | 2020-01-14 08:10 | PDOC.HOSPP ---
- Subjective Encounter Date: 01/12/20 Encounter Time: 16:00 Subjective: pt up in bed complains of pain to his lower back - Objective Vital Signs & Weight: Vital Signs (12 hours) Temp Pulse Resp BP Pulse Ox 01/14/20 04:00 98.1 F 98 18 108/72 98 01/14/20 00:03 98.5 F 78 18 129/77 96 Weight Weight 375 lb 8 oz I&O: 01/13/20 01/14/20 01/15/20 06:59 06:59 06:59 Intake Total 1173 860 Output Total 775 1200 Balance 398 -340 Result Diagrams: 01/13/20 07:56 01/13/20 07:56 Additional Labs: Accuchecks 01/14/20 01/13/20 01/13/20 05:21 19:54 15:45 POC Glucose 119 H 141 H 135 H 01/13/20 10:35 POC Glucose 175 H Hospitalist ROS - Review of Systems Cardiovascular: denies: chest pain, palpitations, orthopnea, paroxysmal noc. dyspnea, edema, light headedness, other Gastrointestinal: denies: nausea, vomiting, abdominal pain, diarrhea, constipation, melena, hematochezia, other Musculoskeletal: reports: back pain - Medication Medications: Active Medications Generic Name Dose Route Start Last Admin Trade Name Freq PRN Reason Stop Dose Admin Acetaminophen/Codeine Phosphate 2 tab 01/12/20 16:08 01/14/20 05:18 Tylenol #3 PO 2 tab Q3H PRN Administration PAIN (4-6) Hydrocodone Bitart/Acetaminophen 1 tab 01/11/20 23:46 01/14/20 02:41 [place] 10/325 PO 1 tab Q4H PRN Administration Moderate to Severe Pain (6-10) Atorvastatin Calcium 40 mg 01/11/20 21:00 01/13/20 20:39 Lipitor PO 40 mg HS EDGAR Administration Clonazepam 1 mg 01/11/20 14:37 01/14/20 02:44 Klonopin PO 1 mg DAILYPRN PRN Administration Anxiety Cyclobenzaprine HCl 10 mg 01/11/20 15:00 01/13/20 20:39 Flexeril PO 10 mg TID EDGAR Administration Cyclobenzaprine HCl 10 mg 01/12/20 16:08 01/14/20 05:18 Flexeril PO 10 mg Q8H PRN Administration Muscle Spasm Gabapentin 1,200 mg 01/11/20 21:00 01/13/20 20:39 Neurontin PO 1,200 mg TID EDGAR Administration Sodium Chloride 1,000 mls @ 75 mls/hr 01/12/20 16:08 01/14/20 07:43 Normal Saline 0.9% IV Not Given .[id number] [facility] Insulin Human Lispro 0 units 01/12/20 07:58 01/13/20 12:53 Humalog SC 2 unit .MILD SLIDING SCALE PRN Administration Mild Correctional Scale Morphine Sulfate 4 mg 01/12/20 16:08 01/14/20 05:53 Morphine SLOW IVP 4 mg Q1H PRN Administration SEVERE BREAKTHROUGH PAIN Promethazine HCl 12.5 mg 01/12/20 16:08 01/13/20 05:05 Phenergan IM 12.5 mg Q4H PRN Administration Nausea/Vomiting Promethazine HCl 12.5 mg 01/12/20 16:08 01/13/20 08:38 Phenergan PO 12.5 mg Q4H PRN Administration Nausea/Vomiting - Exam Neck: negative: supple, symmetric, no JVD, no thyromegaly, no lymphadenopathy, no carotid bruit, JVD Heart: negative: RRR, no murmur, no gallops, no rubs, normal peripheral pulses, irregular, diminshed peripheral pulses, murmur present, II/IV, III/IV Respiratory: negative: CTAB, no wheezes, no rales, no ronchi, normal chest expansion, no tachypnea, normal percussion, rales, rhonchi, tachypneic, wheezes Gastrointestinal: soft, normal bowel sounds Hosp A/P (1) Dyslipidemia Code(s): E78.5 - HYPERLIPIDEMIA, UNSPECIFIED Status: Chronic (2) HTN (hypertension) Code(s): I10 - ESSENTIAL (PRIMARY) HYPERTENSION Status: Chronic Qualifiers: (3) Morbid obesity with BMI of 45.0-49.9, adult Code(s): E66.01 - MORBID (SEVERE) OBESITY DUE TO EXCESS CALORIES; Z68.42 - BODY MASS INDEX (BMI) 45.0-49.9, ADULT Status: Chronic (4) Severe back pain Code(s): M54.9 - DORSALGIA, UNSPECIFIED Status: Chronic (5) Prediabetes Code(s): R73.03 - PREDIABETES Status: Acute (6) Leukocytosis Code(s): D72.829 - ELEVATED WHITE BLOOD CELL COUNT, UNSPECIFIED Status: Acute - Plan will continue current tx for now. will defer pain meds to surgery. pt educated about diet and exercise.
--- NOTE | 2020-01-14 08:15 | PDOC.HOSPP ---
- Subjective Encounter Date: 01/13/20 Encounter Time: 11:15 Subjective: pt getting up with PT. pt's pain is a bit controlled. He will need inpatient rehab. - Objective Vital Signs & Weight: Vital Signs (12 hours) Temp Pulse Resp BP Pulse Ox 01/14/20 04:00 98.1 F 98 18 108/72 98 01/14/20 00:03 98.5 F 78 18 129/77 96 Weight Weight 375 lb 8 oz I&O: 01/13/20 01/14/20 01/15/20 06:59 06:59 06:59 Intake Total 1173 860 Output Total 775 1200 Balance 398 -340 Result Diagrams: 01/13/20 07:56 01/13/20 07:56 Additional Labs: Accuchecks 01/14/20 01/13/20 01/13/20 05:21 19:54 15:45 POC Glucose 119 H 141 H 135 H 01/13/20 10:35 POC Glucose 175 H Hospitalist ROS - Review of Systems Cardiovascular: denies: chest pain, palpitations, orthopnea, paroxysmal noc. dyspnea, edema, light headedness, other Gastrointestinal: denies: nausea, vomiting, abdominal pain, diarrhea, constipation, melena, hematochezia, other Genitourinary: denies: dysuria, frequency, incontinence, hematuria, retention, other Musculoskeletal: reports: back pain - Medication Medications: Active Medications Generic Name Dose Route Start Last Admin Trade Name Freq PRN Reason Stop Dose Admin Acetaminophen/Codeine Phosphate 2 tab 01/12/20 16:08 01/14/20 05:18 Tylenol #3 PO 2 tab Q3H PRN Administration PAIN (4-6) Hydrocodone Bitart/Acetaminophen 1 tab 01/11/20 23:46 01/14/20 02:41 [place] 10/325 PO 1 tab Q4H PRN Administration Moderate to Severe Pain (6-10) Atorvastatin Calcium 40 mg 01/11/20 21:00 01/13/20 20:39 Lipitor PO 40 mg HS EDGAR Administration Clonazepam 1 mg 01/11/20 14:37 01/14/20 02:44 Klonopin PO 1 mg DAILYPRN PRN Administration Anxiety Cyclobenzaprine HCl 10 mg 01/11/20 15:00 01/13/20 20:39 Flexeril PO 10 mg TID EDGAR Administration Cyclobenzaprine HCl 10 mg 01/12/20 16:08 01/14/20 05:18 Flexeril PO 10 mg Q8H PRN Administration Muscle Spasm Gabapentin 1,200 mg 01/11/20 21:00 01/13/20 20:39 Neurontin PO 1,200 mg TID EDGAR Administration Sodium Chloride 1,000 mls @ 75 mls/hr 01/12/20 16:08 01/14/20 07:43 Normal Saline 0.9% IV Not Given .[id number] [facility] Insulin Human Lispro 0 units 01/12/20 07:58 01/13/20 12:53 Humalog SC 2 unit .MILD SLIDING SCALE PRN Administration Mild Correctional Scale Morphine Sulfate 4 mg 01/12/20 16:08 01/14/20 05:53 Morphine SLOW IVP 4 mg Q1H PRN Administration SEVERE BREAKTHROUGH PAIN Promethazine HCl 12.5 mg 01/12/20 16:08 01/13/20 05:05 Phenergan IM 12.5 mg Q4H PRN Administration Nausea/Vomiting Promethazine HCl 12.5 mg 01/12/20 16:08 01/13/20 08:38 Phenergan PO 12.5 mg Q4H PRN Administration Nausea/Vomiting - Exam Neck: negative: supple, symmetric, no JVD, no thyromegaly, no lymphadenopathy, no carotid bruit, JVD Heart: negative: RRR, no murmur, no gallops, no rubs, normal peripheral pulses, irregular, diminshed peripheral pulses, murmur present, II/IV, III/IV Respiratory: negative: CTAB, no wheezes, no rales, no ronchi, normal chest expansion, no tachypnea, normal percussion, rales, rhonchi, tachypneic, wheezes Gastrointestinal: soft, normal bowel sounds Gastrointestinal - other findings: obse Neurological - other findings: pt still has numbness and tingling, but cool sensation improved. Hosp A/P (1) Dyslipidemia Code(s): E78.5 - HYPERLIPIDEMIA, UNSPECIFIED Status: Chronic (2) HTN (hypertension) Code(s): I10 - ESSENTIAL (PRIMARY) HYPERTENSION Status: Chronic Qualifiers: (3) Morbid obesity with BMI of 45.0-49.9, adult Code(s): E66.01 - MORBID (SEVERE) OBESITY DUE TO EXCESS CALORIES; Z68.42 - BODY MASS INDEX (BMI) 45.0-49.9, ADULT Status: Chronic (4) Severe back pain Code(s): M54.9 - DORSALGIA, UNSPECIFIED Status: Chronic (5) Prediabetes Code(s): R73.03 - PREDIABETES Status: Acute (6) Leukocytosis Code(s): D72.829 - ELEVATED WHITE BLOOD CELL COUNT, UNSPECIFIED Status: Acute - Plan will continue current tx for now. will defer pain meds to surgery. pt educated about diet and exercise. POD #1, L2-L 3 laminectomy with decompression. 4/9 pt up in bed still has pain issues. He is on meds q3hr. will hold bp meds since his bp is running low. His hbg alc is 6.2.
[2020-01-14] MEDS: Gabapentin 400 MG CAP PO SCH ×3 (08:18→20:06)
[2020-01-14] MEDS: Senokot S 8.6-50 MG TAB PO PRN (08:19)
[2020-01-14] MEDS: Cyclobenzaprine 10 MG TAB PO SCH ×3 (08:20→20:06)
[2020-01-14] MEDS: CEFAZOLIN 2 GM in Premix Bag 1 BAG IVPB SCH ×2 (10:02→17:19)
[2020-01-14] MEDS: Morphine 2 MG/ML SYRINGE SLOW IVP PRN ×2 (13:17→18:33)
--- NOTE | 2020-01-14 19:07 | PDOC.HOSPP ---
- Subjective Encounter Date: 01/14/20 Encounter Time: 10:10 Subjective: pt up in bed complains of pain to his back area. - Objective Vital Signs & Weight: Vital Signs (12 hours) Temp Pulse Resp BP Pulse Ox 01/14/20 16:38 97.8 F 94 16 121/78 98 01/14/20 11:09 99.1 F 75 18 119/74 97 01/14/20 08:35 98 01/14/20 08:19 98.2 F 74 16 114/73 98 Weight Weight 375 lb 8 oz I&O: 01/13/20 01/14/20 01/15/20 06:59 06:59 06:59 Intake Total 7290 153 8710 Output Total 775 1200 1500 Balance 398 340 -200 Result Diagrams: 01/13/20 07:56 01/13/20 07:56 Additional Labs: Accuchecks 01/14/20 01/14/20 01/14/20 16:08 11:42 05:21 POC Glucose 116 H 96 119 H 01/13/20 19:54 POC Glucose 141 H Hospitalist ROS - Review of Systems Cardiovascular: denies: chest pain, palpitations, orthopnea, paroxysmal noc. dyspnea, edema, light headedness, other Gastrointestinal: denies: nausea, vomiting, abdominal pain, diarrhea, constipation, melena, hematochezia, other Genitourinary: denies: dysuria, frequency, incontinence, hematuria, retention, other Musculoskeletal: reports: back pain - Medication Medications: Active Medications Generic Name Dose Route Start Last Admin Trade Name Freq PRN Reason Stop Dose Admin Acetaminophen/Codeine Phosphate 1 tab 01/12/20 16:08 01/14/20 18:35 Tylenol #3 PO 1 tab Q3H PRN Administration PAIN (1-3) Acetaminophen/Codeine Phosphate 2 tab 01/12/20 16:08 01/14/20 05:18 Tylenol #3 PO 2 tab Q3H PRN Administration PAIN (4-6) Hydrocodone Bitart/Acetaminophen 1 tab 01/11/20 23:46 01/14/20 17:11 [place] 10/325 PO 1 tab Q4H PRN Administration Moderate to Severe Pain (6-10) Atorvastatin Calcium 40 mg 01/11/20 21:00 01/13/20 20:39 Lipitor PO 40 mg HS EDGAR Administration Clonazepam 1 mg 01/11/20 14:37 01/14/20 02:44 Klonopin PO 1 mg DAILYPRN PRN Administration Anxiety Cyclobenzaprine HCl 10 mg 01/11/20 15:00 01/14/20 14:03 Flexeril PO 10 mg TID EDGAR Administration Cyclobenzaprine HCl 10 mg 01/12/20 16:08 01/14/20 05:18 Flexeril PO 10 mg Q8H PRN Administration Muscle Spasm Gabapentin 1,200 mg 01/11/20 21:00 01/14/20 14:03 Neurontin PO 1,200 mg TID EDGAR Administration Sodium Chloride 1,000 mls @ 75 mls/hr 01/12/20 16:08 01/14/20 07:43 Normal Saline 0.9% IV Not Given .[id number] EDGAR Cefazolin Sodium/Dextrose 2 gm 50 mls @ 100 mls/hr 01/14/20 09:00 01/14/20 17 :19 / Device IVPB 50 mls [id number] EDGAR Administration Insulin Human Lispro 0 units 01/12/20 07:58 01/13/20 12:53 Humalog SC 2 unit .MILD SLIDING SCALE PRN Administration Mild Correctional Scale Morphine Sulfate 2 mg 01/12/20 16:08 01/14/20 18:33 Morphine SLOW IVP 2 mg Q1H PRN Administration Moderate Breakthrough Pain Morphine Sulfate 4 mg 01/12/20 16:08 01/14/20 17:12 Morphine SLOW IVP 4 mg Q1H PRN Administration SEVERE BREAKTHROUGH PAIN Promethazine HCl 12.5 mg 01/12/20 16:08 01/13/20 05:05 Phenergan IM 12.5 mg Q4H PRN Administration Nausea/Vomiting Promethazine HCl 12.5 mg 01/12/20 16:08 01/13/20 08:38 Phenergan PO 12.5 mg Q4H PRN Administration Nausea/Vomiting Senna/Docusate Sodium 2 tab 01/11/20 14:34 01/14/20 08:19 Senokot S PO 2 tab BIDPRN PRN Administration Constipation - Exam Neck: negative: supple, symmetric, no JVD, no thyromegaly, no lymphadenopathy, no carotid bruit, JVD Heart: negative: RRR, no murmur, no gallops, no rubs, normal peripheral pulses, irregular, diminshed peripheral pulses, murmur present, II/IV, III/IV Respiratory: negative: CTAB, no wheezes, no rales, no ronchi, normal chest expansion, no tachypnea, normal percussion, rales, rhonchi, tachypneic, wheezes Gastrointestinal: soft Gastrointestinal - other findings: obse, bsx2 Neurological - other findings: moving all 4 ext Hosp A/P (1) Dyslipidemia Code(s): E78.5 - HYPERLIPIDEMIA, UNSPECIFIED Status: Chronic (2) HTN (hypertension) Code(s): I10 - ESSENTIAL (PRIMARY) HYPERTENSION Status: Chronic Qualifiers: (3) Morbid obesity with BMI of 45.0-49.9, adult Code(s): E66.01 - MORBID (SEVERE) OBESITY DUE TO EXCESS CALORIES; Z68.42 - BODY MASS INDEX (BMI) 45.0-49.9, ADULT Status: Chronic (4) Severe back pain Code(s): M54.9 - DORSALGIA, UNSPECIFIED Status: Chronic (5) Prediabetes Code(s): R73.03 - PREDIABETES Status: Acute (6) Leukocytosis Code(s): D72.829 - ELEVATED WHITE BLOOD CELL COUNT, UNSPECIFIED Status: Acute - Plan will continue current tx for now. will defer pain meds to surgery. pt educated about diet and exercise. POD #1, L2-L 3 laminectomy with decompression. / pt up in bed still has pain issues. He is on meds q3hr. will hold bp meds since his bp is running low. His hbg alc is 6.2 01/13 Nursing called pharmacy to verify his pain meds. He has not been on [facility] IR since 2019. will continue current meds. Need to be careful to avoid Tylenol toxicity. will continue stool softeners.
[2020-01-14] MEDS: Atorvastatin Calcium 40 MG TAB PO SCH (20:06)
[2020-01-15] MEDS: HYDROcodone/Acetaminophen 10/325 mg Tablet PO PRN ×4 (00:23→20:16)
[2020-01-15] MEDS: CEFAZOLIN 2 GM in Premix Bag 1 BAG IVPB SCH ×3 (00:23→16:18)
[2020-01-15] MEDS: Morphine 4 MG/ML VIAL SLOW IVP PRN ×11 (00:24→22:16)
[2020-01-15 05:53] LABS: #Eosinphils 0.3 thou/uL (0.0-0.7); #Lymphocytes 2.9 thou/uL (1.20-3.40); #Monocytes 1.2 thou/uL (0.11-0.59); #Neutrophils 8.9 thou/uL (1.40-6.50); %Basophils 0.1 % (0.0-1.0); %Eosinophils 2.3 % (0.0-10.0); %Lymphocytes 21.7 % (21.0-51.0); %Monocytes 9.2 % (0.0-10.0); %Neutrophils 66.6 % (42.0-75.0); Hemoglobin 12.1 g/dL (14.0-18.0); Mean Corpuscular HGB CONC 32.6 g/dL (32.0-36.0); Mean Corpuscular Hemoglobin 28.6 pg (27.0-31.0); Mean Corpuscular Volume 87.9 fL (78.0-98.0); Mean Platelet Volume 7.1 fL (7.4-10.4); Platelet Count 222 thou/uL (130-400); RBC Distribution Width 12.4 % (11.5-14.5); Red Blood Cell (RBC) Count 4.24 mill/uL (4.70-6.10); White Blood Cell (WBC) Count 13.3 thou/uL (4.8-10.8)
[2020-01-15] MEDS: Acetaminophen/Codeine 30-300mg Tablet PO PRN ×3 (06:33→22:17)
[2020-01-15] MEDS: Sodium Chloride 0.9% 1,000 ML IV SCH ×2 (06:39→09:22)
--- NOTE | 2020-01-15 06:39 | PRG ---
DATE OF SERVICE: 01/15/2020 Mr. Zee is a 44-year-old gentleman on 4th day of his hospital stay, postoperative day three from lumbar decompression adjacent to prior lumbar fusion with Dr. Medina. He is apparently having significant pain control issues. He is getting morphine . We will transition him to perhaps a fentanyl patch 25 mcg. I discussed this with the nurse to avoid persistent morphine dosage. He is being rehab at [facility] in [place] but appears that we will not have a decisional review from his insurance until Friday. Until that time, he will need aggressive physical therapy. We will continue to follow along. Job ID: [id number]
[2020-01-15] MEDS: clonazePAM 1 MG TAB PO PRN (08:06)
[2020-01-15] MEDS: Cyclobenzaprine 10 MG TAB PO SCH ×3 (08:06→20:17)
[2020-01-15] MEDS: Gabapentin 400 MG CAP PO SCH ×3 (08:06→20:16)
[2020-01-15] MEDS: Senokot S 8.6-50 MG TAB PO PRN (09:20)
--- NOTE | 2020-01-15 14:04 | PRG ---
DATE OF SERVICE: 01/15/2020 I reviewed the progress note as dictated by Mohit White and agree with his overall plan and assessment. Mr. Zee is a morbidly obese 44-year-old gentleman, who continues to recover from reoperative lumbar spine surgery. He has a chronic pain history and has expected struggling with postoperative pain. Our plan is to continue working with him to better improve his pain and encourage mobilization. The plan will be inpatient rehab, which will likely occur over the next 2 to 3 days. Job ID: [id number]
[2020-01-15] MEDS ORDERED: Polyethylene Glycol 3350 17 GM Packet PO PRN (14:59)
--- NOTE | 2020-01-15 14:59 | PDOC.HOSPP ---
- Subjective Encounter Date: 01/15/20 Encounter Time: 10:30 Subjective: THe patient states his back pain is better. It is /10 which improves significantly with IV morphine. He states he is getting morphine every 1 hour. He ambulated with PT around the room. Patient is waiting on a rehab bed - Objective Vital Signs & Weight: Vital Signs (12 hours) Temp Pulse Resp BP Pulse Ox 01/15/20 11:00 98.0 F 75 18 118/71 96 01/15/20 08:05 96 01/15/20 07:00 98.5 F 77 18 124/76 96 Weight Weight 375 lb 8 oz I&O: 01/14/20 01/15/20 01/16/20 06:59 06:59 06:59 Intake Total 860 1300 1620 Output Total 1200 1500 1300 Balance -340 -200 320 Result Diagrams: 01/15/20 05:34 01/13/20 07:56 Additional Labs: Accuchecks 01/15/20 01/15/20 01/14/20 11:04 06:00 21:47 POC Glucose 113 H 98 111 H 01/14/20 16:08 POC Glucose 116 H Hospitalist ROS - Review of Systems Constitutional: denies: fever, chills - Medication Medications: Active Medications Generic Name Dose Route Start Last Admin Trade Name Freq PRN Reason Stop Dose Admin Acetaminophen/Codeine Phosphate 1 tab 01/12/20 16:08 01/14/20 18:35 Tylenol #3 PO 1 tab Q3H PRN Administration PAIN (1-3) Acetaminophen/Codeine Phosphate 2 tab 01/12/20 16:08 01/15/20 10:44 Tylenol #3 PO 2 tab Q3H PRN Administration PAIN (4-6) Hydrocodone Bitart/Acetaminophen 1 tab 01/11/20 23:46 01/15/20 13:43 [place] 10/325 PO 1 tab Q4H PRN Administration Moderate to Severe Pain (6-10) Atorvastatin Calcium 40 mg 01/11/20 21:00 01/14/20 20:06 Lipitor PO 40 mg HS EDGAR Administration Clonazepam 1 mg 01/11/20 14:37 01/15/20 08:06 Klonopin PO 1 mg DAILYPRN PRN Administration Anxiety Cyclobenzaprine HCl 10 mg 01/11/20 15:00 01/15/20 14:43 Flexeril PO 10 mg TID EDGAR Administration Cyclobenzaprine HCl 10 mg 01/12/20 16:08 01/14/20 05:18 Flexeril PO 10 mg Q8H PRN Administration Muscle Spasm Gabapentin 1,200 mg 01/11/20 21:00 01/15/20 14:43 Neurontin PO 1,200 mg TID EDGAR Administration Sodium Chloride 1,000 mls @ 75 mls/hr 01/12/20 16:08 01/15/20 09:22 Normal Saline 0.9% IV Not Given .[id number] EDGAR Cefazolin Sodium/Dextrose 2 gm 50 mls @ 100 mls/hr 01/14/20 09:00 01/15/20 08 :07 / Device IVPB 50 mls [id number] [facility] Administration Insulin Human Lispro 0 units 01/12/20 07:58 01/13/20 12:53 Humalog SC 2 unit .MILD SLIDING SCALE PRN Administration Mild Correctional Scale Morphine Sulfate 2 mg 01/12/20 16:08 01/14/20 18:33 Morphine SLOW IVP 2 mg Q1H PRN Administration Moderate Breakthrough Pain Morphine Sulfate 4 mg 01/12/20 16:08 01/15/20 14:44 Morphine SLOW IVP 4 mg Q1H PRN Administration SEVERE BREAKTHROUGH PAIN Promethazine HCl 12.5 mg 01/12/20 16:08 01/13/20 05:05 Phenergan IM 12.5 mg Q4H PRN Administration Nausea/Vomiting Promethazine HCl 12.5 mg 01/12/20 16:08 01/13/20 08:38 Phenergan PO 12.5 mg Q4H PRN Administration Nausea/Vomiting Senna/Docusate Sodium 2 tab 01/11/20 14:34 01/15/20 09:20 Senokot S PO 2 tab BIDPRN PRN Administration Constipation - Exam General Appearance: NAD, awake alert Eye: PERRL, anicteric sclera ENT: normocephalic atraumatic, no oropharyngeal lesions Neck: no JVD Heart: RRR, no murmur, no gallops, no rubs Respiratory: CTAB, no wheezes, no rales, no ronchi Gastrointestinal: soft, non-tender, non-distended, normal bowel sounds Extremities: no cyanosis, no clubbing, no edema Skin: normal turgor, no lesions, no rashes Neurological: cranial nerve grossly intact, normal sensation to touch, no focal deficits, no new deficit Musculoskeletal: normal tone Musculoskeletal - other findings: surgical site looks clean Hosp A/P - Plan THis is 44 year old male who is s/p decompressive laminectomy for back pain Back pain s/p decompressive laminectomy - patient receiving IV morphine q1 hour prn. COnsider transitioning to oral meds in anticipation of rehab - continue flexeril, gabapentin - will add bowel regimen Hyponatremia - sodium 131, will recheck today Leukocytosis - downtrending to 13.1, on IV cefazolin per neurosurgery. HTN - blood pressure controlled, hold losartan
[2020-01-15 15:46] LABS: Anion Gap 8 mmol/L (10-20); BUN (Urea Nitrogen) 15 mg/dL (8.9-20.6); Calc. Creatinine Clearance 283 mL/min (70-130); Carbon Dioxide 28 mmol/L (22-29); Chloride 99 mmol/L (98-107); Estimated GFR-MDRD Greater than 90; Glucose 107 mg/dL (70-105); Potassium 3.8 mmol/L (3.5-5.1); Sodium 131 mmol/L (136-145)
[2020-01-15] MEDS: Atorvastatin Calcium 40 MG TAB PO SCH (20:16)
[2020-01-16] MEDS: Sodium Chloride 0.9% 1,000 ML IV SCH ×2 (00:29→13:32)
[2020-01-16] MEDS: CEFAZOLIN 2 GM in Premix Bag 1 BAG IVPB SCH ×3 (00:34→17:15)
[2020-01-16] MEDS: HYDROcodone/Acetaminophen 10/325 mg Tablet PO PRN ×4 (00:35→23:05)
[2020-01-16] MEDS: Morphine 4 MG/ML VIAL SLOW IVP PRN ×4 (00:36→14:54)
[2020-01-16 05:56] LABS: Hemoglobin 11.1 g/dL (14.0-18.0); Mean Corpuscular HGB CONC 33.2 g/dL (32.0-36.0); Mean Corpuscular Hemoglobin 29.4 pg (27.0-31.0); Mean Corpuscular Volume 88.3 fL (78.0-98.0); Mean Platelet Volume 7.3 fL (7.4-10.4); Platelet Count 220 thou/uL (130-400); RBC Distribution Width 12.5 % (11.5-14.5); Red Blood Cell (RBC) Count 3.78 mill/uL (4.70-6.10); White Blood Cell (WBC) Count 8.8 thou/uL (4.8-10.8)
[2020-01-16 06:03] LABS: Anion Gap 10 mmol/L (10-20); BUN (Urea Nitrogen) 12 mg/dL (8.9-20.6); Calc. Creatinine Clearance 283 mL/min (70-130); Calcium 7.9 mg/dL (7.8-10.44); Carbon Dioxide 28 mmol/L (22-29); Chloride 100 mmol/L (98-107); Estimated GFR-MDRD Greater than 90; Glucose 136 mg/dL (70-105); Potassium 3.9 mmol/L (3.5-5.1); Sodium 134 mmol/L (136-145)
[2020-01-16] MEDS: Acetaminophen/Codeine 30-300mg Tablet PO PRN ×3 (06:32→20:15)
[2020-01-16] MEDS: Cyclobenzaprine 10 MG TAB PO SCH ×3 (08:11→20:15)
[2020-01-16] MEDS: Gabapentin 400 MG CAP PO SCH ×3 (08:11→20:15)
[2020-01-16] MEDS: Promethazine HCl 25 MG/ML VIAL IM PRN (08:12)
[2020-01-16] MEDS: Morphine 2 MG/ML SYRINGE SLOW IVP PRN ×4 (10:05→21:08)
--- NOTE | 2020-01-16 11:31 | PRG ---
DATE OF SERVICE: 01/16/2020 I am coming in and see Mr. Zee this morning, but he is participating with therapy in the bed, was only able to ask briefly if he is feeling somewhat better from the pain perspective. It looks like it is more or less the same. This seems like it not only has chronically been a problem, but will continue to be so. He apparently refused therapy yesterday secondary to discomfort. We are still awaiting decision from rehab, which hopefully will happen tomorrow. Job ID: [id number]
--- NOTE | 2020-01-16 17:13 | PDOC.HOSPP ---
- Subjective Encounter Date: 01/16/20 Encounter Time: 17:11 Subjective: Mr. Zee was seen today in follow-up - post lumbar surgery. He notes continued back pain, and numbness in his legs. He feels he may be a bit better today. No new complaints. - Objective Vital Signs & Weight: Vital Signs (12 hours) Temp Pulse Resp BP Pulse Ox 01/16/20 15:59 98.0 F 74 20 128/84 99 01/16/20 11:44 97.7 F 80 20 113/73 98 01/16/20 08:10 96 01/16/20 07:16 97.6 F 77 16 131/87 96 Weight Weight 375 lb 8 oz I&O: 01/15/20 01/16/20 01/17/20 06:59 06:59 06:59 Intake Total 1300 2645 200 Output Total 1500 3800 Balance -200 -1155 200 Result Diagrams: 01/16/20 05:00 01/16/20 05:00 Additional Labs: Accuchecks 01/16/20 01/16/20 01/16/20 16:03 11:49 05:44 POC Glucose 112 H 116 H 156 H 01/15/20 01/15/20 20:33 17:13 POC Glucose 129 H 141 H Hospitalist ROS - Medication Medications: Active Medications Generic Name Dose Route Start Last Admin Trade Name Freq PRN Reason Stop Dose Admin Acetaminophen/Codeine Phosphate 1 tab 01/12/20 16:08 01/14/20 18:35 Tylenol #3 PO 1 tab Q3H PRN Administration PAIN (1-3) Acetaminophen/Codeine Phosphate 2 tab 01/12/20 16:08 01/16/20 10:05 Tylenol #3 PO 2 tab Q3H PRN Administration PAIN (4-6) Hydrocodone Bitart/Acetaminophen 1 tab 01/11/20 23:46 01/16/20 11:57 [place] 10/325 PO 1 tab Q4H PRN Administration Moderate to Severe Pain (6-10) Atorvastatin Calcium 40 mg 01/11/20 21:00 01/15/20 20:16 Lipitor PO 40 mg HS EDGAR Administration Clonazepam 1 mg 01/11/20 14:37 01/15/20 08:06 Klonopin PO 1 mg DAILYPRN PRN Administration Anxiety Cyclobenzaprine HCl 10 mg 01/11/20 15:00 01/16/20 14:54 Flexeril PO 10 mg TID EDGAR Administration Cyclobenzaprine HCl 10 mg 01/12/20 16:08 01/14/20 05:18 Flexeril PO 10 mg Q8H PRN Administration Muscle Spasm Gabapentin 1,200 mg 01/11/20 21:00 01/16/20 14:53 Neurontin PO 1,200 mg TID EDGAR Administration Sodium Chloride 1,000 mls @ 75 mls/hr 01/12/20 16:08 01/16/20 13:32 Normal Saline 0.9% IV Not Given .[id number] EDGAR Cefazolin Sodium/Dextrose 2 gm 50 mls @ 100 mls/hr 01/14/20 09:00 01/16/20 08 :10 / Device IVPB 50 mls [id number],1700 EDGAR Administration Insulin Human Lispro 0 units 01/12/20 07:58 01/13/20 12:53 Humalog SC 2 unit .MILD SLIDING SCALE PRN Administration Mild Correctional Scale Morphine Sulfate 2 mg 01/12/20 16:08 01/16/20 11:56 Morphine SLOW IVP 2 mg Q1H PRN Administration Moderate Breakthrough Pain Morphine Sulfate 4 mg 01/12/20 16:08 01/16/20 14:54 Morphine SLOW IVP 4 mg Q1H PRN Administration SEVERE BREAKTHROUGH PAIN Promethazine HCl 12.5 mg 01/12/20 16:08 01/16/20 08:12 Phenergan IM 12.5 mg Q4H PRN Administration Nausea/Vomiting Promethazine HCl 12.5 mg 01/12/20 16:08 01/13/20 08:38 Phenergan PO 12.5 mg Q4H PRN Administration Nausea/Vomiting Senna/Docusate Sodium 2 tab 01/11/20 14:34 01/15/20 09:20 Senokot S PO 2 tab BIDPRN PRN Administration Constipation - Exam Eye: PERRL, anicteric sclera Heart: RRR, no murmur, no gallops, no rubs, normal peripheral pulses Respiratory: CTAB, no wheezes, no rales, no ronchi, normal chest expansion, no tachypnea Gastrointestinal: soft, non-tender Extremities: no cyanosis Hosp A/P (1) HTN (hypertension) Code(s): I10 - ESSENTIAL (PRIMARY) HYPERTENSION Status: Chronic Qualifiers: (2) Lumbar spinal stenosis Code(s): M48.06 - SPINAL STENOSIS, LUMBAR REGION * DO NOT USE * Status: Chronic (3) Prediabetes Code(s): R73.03 - PREDIABETES Status: Acute - Plan * HTN- blood pressure is well controlled * Pre-diabetes- stable * Continue PT/ OT as tolerated * Post -op care as per NS * Awaiting Rehab placement
[2020-01-16] MEDS: Atorvastatin Calcium 40 MG TAB PO SCH (20:15)
[2020-01-17] MEDS: Morphine 2 MG/ML SYRINGE SLOW IVP PRN ×2 (00:11→05:51)
[2020-01-17] MEDS: CEFAZOLIN 2 GM in Premix Bag 1 BAG IVPB SCH ×3 (00:11→15:58)
[2020-01-17] MEDS: Sodium Chloride 0.9% 1,000 ML IV SCH ×2 (01:36→15:38)
[2020-01-17] MEDS: HYDROcodone/Acetaminophen 10/325 mg Tablet PO PRN ×3 (03:27→15:00)
--- NOTE | 2020-01-17 07:31 | PRG ---
DATE OF SERVICE: 01/17/2020 I saw Melvin Zee in his hospital room this morning. He is 5 days out from a one-level lumbar laminectomy done for adjacent segment stenosis. Mr. Zee has pain control issues, which have been chronic. He has not left the hospital nor has he been compliant with physical therapy while here. Among the electronically recorded vital signs, I do not see a fever for his entire hospital stay. Blood pressures have recently been between the 110s and 150s. Mr. Zee can move his legs and his neurological examination is improved from his admission. Mr. Zee should leave the hospital today. We will make arrangements for that to happen. Job ID: [id number]
[2020-01-17] MEDS: Gabapentin 400 MG CAP PO SCH ×2 (08:13→14:59)
[2020-01-17] MEDS: Cyclobenzaprine 10 MG TAB PO SCH ×2 (08:13→14:59)
[2020-01-17] MEDS: Morphine 4 MG/ML VIAL SLOW IVP PRN (10:13)
[2020-01-17 11:09] VITALS: BP 122/66; TEMP 98.3
[2020-01-17] MEDS: Senokot S 8.6-50 MG TAB PO PRN (15:58)
--- NOTE | 2020-01-19 03:15 | DIS ---
DATE OF ADMISSION: 01/11/2020 DATE OF DISCHARGE: 01/17/2020 PRIMARY CARE PHYSICIAN: Edin Turk MD DISCHARGE DIAGNOSES: 1. Lumbar spinal stenosis. 2. Hypertension. 3. History of cauda equina syndrome. 4. Prediabetes. 5. Morbid obesity. DISCHARGE MEDICATIONS: Include: 1. Atorvastatin 40 mg at bedtime. 2. Klonopin 1 mg twice a day. 3. Flexeril 10 mg t.i.d. 4. Gabapentin 1200 mg daily. 5. [place] 1 to 2 tablets q.3 hours as needed. 6. Losartan 100 mg daily. 7. Tylenol No. 3 one to two tablets every 4 hours as needed. 8. Ancef 2 g IV twice a day. 9. MiraLAX 17 g daily. 10. Potassium chloride 20 mEq extended release daily. PROCEDURES DONE DURING ADMISSION: The patient had a reopening of the lumbar incision with re-exploration of the fusion, decompressive laminectomy, medial fasciectomy, and foraminotomy at L2-L3 level. CODE STATUS: Full code. ALLERGIES: TO TORADOL, METOCLOPRAMIDE, COMPAZINE, TRAMADOL, ZOFRAN, PREGABALIN, AND LYRICA. HOSPITAL COURSE: Mr. Zee is a pleasant 44-year-old gentleman who presented to the emergency room with severe back pain. He has a history of lumbar spine disease in the past. He was evaluated by Neurosurgery, and it was felt that he would benefit from reexploration and redo of his lumbar fusion. The patient underwent surgery with re-exploration of the fusion. He had decompressive laminectomy and medial fasciectomy and foraminotomy. The patient had some significant pain following the procedure for several days until his symptoms could be stabilized. His blood pressure and blood sugars remained relatively stable during his hospital course and once he was clinically stable, he was transferred to the inpatient rehab facility. Job ID: [id number]
== END 2020-01-17 16:40 | DRG 519 ==
LOC: ERS 10:40 → OBSVTOIN 16:27 → SURG A 16:27
PROVIDERS: ADMIT Internal Medicine; ATTEND Internal Medicine
PROC: 00NY0ZZ Release Lumbar Spinal Cord, Open Approach (ICD-10-PCS; principal; 2020-01-12)
DX: M48.061 Spinal stenosis, lumbar region without neurogenic claudication (principal); G83.4 Cauda equina syndrome; Z68.41 Body mass index [BMI] 40.0-44.9, adult; E87.1 Hypo-osmolality and hyponatremia; I10 Essential (primary) hypertension; R73.03 Prediabetes; E78.5 Hyperlipidemia, unspecified; G60.3 Idiopathic progressive neuropathy; E66.01 Morbid (severe) obesity due to excess calories; Z88.6 Allergy status to analgesic agent; Z88.8 Allergy status to other drugs, medicaments and biological substances; Z90.49 Acquired absence of other specified parts of digestive tract
CPT/HCPCS: 36415; 36416; 71045; 76000; 80048; 80053; 80306; 81003; 83036; 85025; 85027; 85610; 85652; 85730; 86140; 96374; 96375; 96376; J0171; J0690; J1100; J1885; J2001; J2060; J2250; J2270; J2405; J2550; J2704; J2765; J3010; J3370; J3490; Q0169; S0020; S0028

== ENCOUNTER 2020-04-14 15:13 | Emergency (ER) | payer BC ==
--- NOTE | 2020-04-14 16:38 | RAD ---
Exam: XR Hip Lt 2-3 View HISTORY: Trauma to left hip. Patient fell in shower 2 weeks ago. Persistent pain to left hip. COMPARISON: None FINDINGS: No acute fracture, dislocation, or other acute osseous abnormality is identified. IMPRESSION: No acute osseous abnormality is identified. If there is strong clinical concern for fracture left hip , MRI would be more sensitive study of choice for evaluation of a radiographically occult fracture.
== END 2020-04-14 16:52 | disposition home or self-care (01) ==
LOC: ERS 15:13
DX: S70.02XA Contusion of left hip, initial encounter (principal); I10 Essential (primary) hypertension; Z79.899 Other long term (current) drug therapy; W18.2XXA Fall in (into) shower or empty bathtub, initial encounter

== ENCOUNTER 2020-07-19 23:36 | Emergency (ER) | payer BC ==
[2020-07-20 00:05] LABS: Bacteria/HPF None Seen HPF (None Seen); Bilirubin Negative (Negative); Blood, Urine Negative (Negative); Clarity Clear (Clear); Glucose, Urine (Dipstick) Normal (Negative); Ketone, Urine Negative (Negative); Leukocyte Negative Leu/uL (Negative); Nitrite Negative (Negative); Protein, Urine (Dipstick) 30 mg/dL (Neg-Trace); RBC/HPF 0-3 HPF (0-3); Specific Gravity, Urine 1.034 (1.002-1.036); Squamous Epithelial 0-3 HPF (0-3); Urobilinogen Normal mg/dL (Less than 2); WBC/HPF 0-3 HPF (0-3); pH, Urine 6.5 (5.0-9.0)
[2020-07-20 00:12] LABS: #Eosinphils 0.2 thou/uL (0.0-0.7); #Lymphocytes 2.2 thou/uL (1.20-3.40); #Monocytes 0.6 thou/uL (0.11-0.59); #Neutrophils 6.7 thou/uL (1.40-6.50); %Basophils 0.4 % (0.0-1.0); %Eosinophils 2.4 % (0.0-10.0); %Lymphocytes 22.7 % (21.0-51.0); %Monocytes 6.1 % (0.0-10.0); %Neutrophils 68.4 % (42.0-75.0); Hemoglobin 13.9 g/dL (14.0-18.0); Mean Corpuscular HGB CONC 34.3 g/dL (32.0-36.0); Mean Corpuscular Hemoglobin 29.5 pg (27.0-31.0); Mean Corpuscular Volume 86.1 fL (78.0-98.0); Mean Platelet Volume 8.1 fL (7.4-10.4); Platelet Count 267 thou/uL (130-400); RBC Distribution Width 13.9 % (11.5-14.5); Red Blood Cell (RBC) Count 4.71 mill/uL (4.70-6.10); White Blood Cell (WBC) Count 9.7 thou/uL (4.8-10.8)
[2020-07-20 00:34] LABS: ALT (SGPT) 28 U/L (8-55); AST (SGOT) 13 U/L (5-34); Alkaline Phosphatase 101 U/L (40-110); Anion Gap 15 mmol/L (10-20); BUN (Urea Nitrogen) 13 mg/dL (8.9-20.6); Bilirubin, Total 0.5 mg/dL (0.2-1.2); Calc. Creatinine Clearance 0 mL/min (70-130); Calcium 9.1 mg/dL (7.8-10.44); Carbon Dioxide 20 mmol/L (22-29); Chloride 105 mmol/L (98-107); Estimated GFR-MDRD 77; Globulin 3.5 g/dL (2.4-3.5); Glucose 219 mg/dL (70-105); Protein, Total 7.5 g/dL (6.0-8.3); Sodium 136 mmol/L (136-145)
[2020-07-20] MEDS ORDERED: Piperacillin/Tazobactam 4.5 GM VIAL ONE (00:48)
[2020-07-20] MEDS ORDERED: Morphine 4 MG/ML VIAL ONE (00:48)
[2020-07-20] MEDS ORDERED: Promethazine HCl 25 MG/ML VIAL ONE (00:48)
[2020-07-20] MEDS ORDERED: Haloperidol Lactate 5 MG/ML VIAL ONE (02:21)
--- NOTE | 2020-07-20 07:35 | CT ---
EXAM: CT ABDOMEN AND PELVIS HISTORY: Right lower quadrant bowel. COMPARISON: 07/15/2020 Procedure: Multiple contiguous axial images were obtained and a CT of the abdomen and pelvis with IV contrast. C oronal reformats were performed. FINDINGS: Lower Chest: within normal limits. Vessels: Normal caliber aorta. No periaortic fat stranding Heart: Normal heart size Abdomen: Portal vein:Patent Gallbladder: Surgically absent Liver: within normal limits. Pancreas: within normal limits. Spleen: within normal limits. Adrenals: within normal limits. Kidneys: Symmetric enhancement. No obstructive uropathy. Peritoneum: No ascites or free air, no fluid collection. Bowel: Limited evaluation due to the lack of oral contrast administration. No evidence of bowel obstr uction. Ileocecal junction is unremarkable. Normal caliber appendix. Scattered fecal material in a nondistended, nondilated colon. Persistent mild luminal narrowing involving the sigmoid colon. Mesentery and Retroperitoneum: No enlarged mesenteric or retroperitoneal lymph nodes. Abdominal Wall: within normal limits. Pelvis: Reproductive Organs: Reproductive organs are unremarkable. Pelvis: No mass, lymphadenopathy, free air or free fluid. Bladder: within normal limits. Bones: within normal limits. IMPRESSION: 1. This report is in agreement with initial report by direct radiology. 2. No evidence of acute intraabdominal\pelvic abnormality. Line 3. Persistent mild luminal narrowing involving the sigmoid colon, likely due to inadequate distention . As a conservative measure, colonoscopy is recommended Results discussed with Dr. Jain 07/20/2020 at 7:36 AM Code CR
[2020-07-20] MEDS ORDERED: Iopamidol-370 76% 500 ML 1 ML ONE (14:35)
== END 2020-07-20 02:37 | disposition home or self-care (01) ==
LOC: ERS 23:36
DX: R10.31 Right lower quadrant pain (principal); I10 Essential (primary) hypertension; E78.5 Hyperlipidemia, unspecified; Z79.899 Other long term (current) drug therapy
CPT/HCPCS: 36415; 74177; 80053; 81003; 81015; 83605; 83690; 85025; 87040; 87086; 96365; 96375; J1630; J2270; J2543; J2550; Q9967

== ENCOUNTER 2020-12-28 21:28 | Emergency (ER) | payer BC ==
[2020-12-29 00:52] LABS: #Eosinphils 0.2 thou/uL (0.0-0.7); #Lymphocytes 2.1 thou/uL (1.20-3.40); #Monocytes 0.5 thou/uL (0.11-0.59); #Neutrophils 4.2 thou/uL (1.40-6.50); %Basophils 0.6 % (0.0-1.0); %Eosinophils 3.1 % (0.0-10.0); %Lymphocytes 29.6 % (21.0-51.0); %Monocytes 7.5 % (0.0-10.0); %Neutrophils 59.2 % (42.0-75.0); Hemoglobin 12.8 g/dL (14.0-18.0); Mean Corpuscular HGB CONC 34.2 g/dL (32.0-36.0); Mean Corpuscular Volume 84.9 fL (78.0-98.0); Mean Platelet Volume 7.4 fL (7.4-10.4); Platelet Count 277 thou/uL (130-400); RBC Distribution Width 14.1 % (11.5-14.5)
[2020-12-29] MEDS ORDERED: Diazepam 5 MG TAB ONE (00:54)
[2020-12-29 01:12] LABS: ALT (SGPT) 26 U/L (8-55); AST (SGOT) 22 U/L (5-34); Albumin 3.9 g/dL (3.5-5.0); Alkaline Phosphatase 79 U/L (40-110); Anion Gap 13 mmol/L (10-20); BUN (Urea Nitrogen) 16 mg/dL (8.9-20.6); Bilirubin, Total 0.5 mg/dL (0.2-1.2); Calc. Creatinine Clearance 0 mL/min (70-130); Calcium 9.3 mg/dL (7.8-10.44); Carbon Dioxide 29 mmol/L (22-29); Chloride 99 mmol/L (98-107); Globulin 3.1 g/dL (2.4-3.5); Glucose 126 mg/dL (70-105); Potassium 3.6 mmol/L (3.5-5.1); Sodium 137 mmol/L (136-145)
== END 2020-12-29 03:06 | disposition home or self-care (01) ==
LOC: ERS 21:28
DX: M54.5 Low back pain (principal); E11.65 Type 2 diabetes mellitus with hyperglycemia; I10 Essential (primary) hypertension; Z79.899 Other long term (current) drug therapy
CPT/HCPCS: 71045; 72072; 72100; 80053; 83880; 84484; 85025; 93005

== ENCOUNTER 2021-06-11 18:39 | Emergency (ER) | payer BC ==
[2021-06-11 19:15] LABS: #Basophils 0.1 thou/uL (0.0-0.2); #Eosinphils 0.1 thou/uL (0.0-0.7); #Lymphocytes 1.7 thou/uL (1.20-3.40); #Monocytes 0.4 thou/uL (0.11-0.59); #Neutrophils 6.1 thou/uL (1.40-6.50); %Basophils 0.9 % (0.0-1.0); %Eosinophils 1.5 % (0.0-10.0); %Lymphocytes 20.3 % (21.0-51.0); %Monocytes 4.9 % (0.0-10.0); %Neutrophils 72.4 % (42.0-75.0); Hemoglobin 12.7 g/dL (14.0-18.0); Mean Corpuscular HGB CONC 33.9 g/dL (32.0-36.0); Mean Corpuscular Hemoglobin 29.9 pg (27.0-31.0); Mean Corpuscular Volume 88.2 fL (78.0-98.0); Mean Platelet Volume 7.7 fL (7.4-10.4); Platelet Count 295 thou/uL (130-400); RBC Distribution Width 14.8 % (11.5-14.5); Red Blood Cell (RBC) Count 4.25 mill/uL (4.70-6.10); White Blood Cell (WBC) Count 8.4 thou/uL (4.8-10.8)
[2021-06-11 19:37] LABS: ALT (SGPT) 29 U/L (8-55); AST (SGOT) 27 U/L (5-34); Albumin 3.9 g/dL (3.5-5.0); Alkaline Phosphatase 80 U/L (40-110); Anion Gap 17 mmol/L (10-20); BUN (Urea Nitrogen) 11 mg/dL (8.9-20.6); Bilirubin, Total 0.5 mg/dL (0.2-1.2); Calc. Creatinine Clearance 0 mL/min (70-130); Calcium 9.1 mg/dL (7.8-10.44); Carbon Dioxide 18 mmol/L (22-29); Chloride 107 mmol/L (98-107); Glucose 208 mg/dL (70-105); Potassium 3.8 mmol/L (3.5-5.1); Protein, Total 6.9 g/dL (6.0-8.3); Sodium 138 mmol/L (136-145)
[2021-06-11] MEDS ORDERED: Acetaminophen 500 MG TAB ONE (21:32)
[2021-06-11] MEDS ORDERED: Promethazine HCl 25 MG/ML VIAL ONE (22:01)
== END 2021-06-11 22:11 | disposition home or self-care (01) ==
LOC: ERS 18:39
DX: K62.5 Hemorrhage of anus and rectum (principal); G89.29 Other chronic pain; I10 Essential (primary) hypertension; E11.9 Type 2 diabetes mellitus without complications
CPT/HCPCS: 36415; 80053; 83690; 84484; 85025; 86850; 86900; 86901; 93005; 96372; J2550

== ENCOUNTER 2022-07-12 09:54 | Inpatient (IN) | payer BC, SELFPAY ==
[~2022-07-12 09:54] MED LIST changes: -ISOVUE-370 76%-LOCM 1 ML ONE; +Iopamidol 370 76% 100 ML VIAL ONE
[2022-07-12 10:44] LABS: #Basophils 0.1 thou/uL (0.0-0.2); #Eosinphils 0.4 thou/uL (0.0-0.7); #Lymphocytes 2.1 thou/uL (1.20-3.40); #Monocytes 0.7 thou/uL (0.11-0.59); #Neutrophils 9.9 thou/uL (1.40-6.50); %Basophils 0.4 % (0.0-1.0); %Eosinophils 3.4 % (0.0-10.0); %Monocytes 5.3 % (0.0-10.0); %Neutrophils 74.9 % (42.0-75.0); Hemoglobin 14.1 g/dL (14.0-18.0); Mean Corpuscular HGB CONC 32.6 g/dL (32.0-36.0); Mean Corpuscular Hemoglobin 28.5 pg (27.0-31.0); Mean Corpuscular Volume 87.7 fL (78.0-98.0); Mean Platelet Volume 8.2 fL (7.4-10.4); Platelet Count 344 thou/uL (130-400); RBC Distribution Width 14.2 % (11.5-14.5); Red Blood Cell (RBC) Count 4.94 mill/uL (4.70-6.10); White Blood Cell (WBC) Count 13.3 thou/uL (4.8-10.8)
[2022-07-12 11:08] LABS: ALT (SGPT) 30 U/L (8-55); AST (SGOT) 29 U/L (5-34); Albumin 4.3 g/dL (3.5-5.0); Alkaline Phosphatase 112 U/L (40-110); Anion Gap 18 mmol/L (10-20); BUN (Urea Nitrogen) 13 mg/dL (8.9-20.6); Bilirubin, Total 1.3 mg/dL (0.2-1.2); Calc. Creatinine Clearance 0 mL/min (70-130); Carbon Dioxide 18 mmol/L (22-29); Chloride 96 mmol/L (98-107); Estimated GFR 65; Globulin 3.7 g/dL (2.4-3.5); Glucose 428 mg/dL (70-105); Potassium 3.6 mmol/L (3.5-5.1); Sodium 128 mmol/L (136-145)
[2022-07-12 11:24] LABS: Lipase 2126 U/L (8-78)
[2022-07-12] MEDS ORDERED: Morphine 4 MG/ML VIAL ONE ×2 (11:27→13:01)
[2022-07-12 11:32] LABS: Actual Bicarbonate (HCO3v) 19 mEq/L (22-28); Analyzer IN Cardio ER; Base Excess -4.3 mEq/L (-2.0 to +3.0); Calcium, Ionized (venous) 1.16 mmol/L (1.16-1.32); Chloride (VBG) 96 mmol/L (98-106); Hemoglobin (Hb) 15.1 g/dL (13.2-17.3); Potassium (VBG) 3.85 mmol/L (3.70-5.30); Sodium 129.5 mmol/L (133-146)
[2022-07-12] MEDS ORDERED: Promethazine HCl 12.5 MG in Sodium Chloride 0.9% 50 ML IVPB SCH (12:30)
[2022-07-12] MEDS ORDERED: Acetaminophen 325 MG TAB PO PRN (13:41)
[2022-07-12] MEDS ORDERED: Lactated Ringer's 1,000 ML IV SCH (13:45)
[2022-07-12] MEDS ORDERED: hydrALAZINE 20 MG/ML VIAL ONE ×2 (13:52→14:35)
[2022-07-12] MEDS ORDERED: Promethazine HCl 12.5 MG in Sodium Chloride 0.9% 50 ML IVPB PRN (13:58)
[2022-07-12 14:42] LABS: Lactic Acid 4.7 mmol/L (0.5-2.2)
[2022-07-12] MEDS ORDERED: Dextrose 50% Abboject 50 ML SYRINGE SLOW IVP PRN (15:23)
[2022-07-12] MEDS ORDERED: Dextrose 5% in Water 1,000 ML IV PRN ×2 (15:23→22:22)
[2022-07-12] MEDS ORDERED: Insulin Regular 300 UNITS/3 ML VIAL SC PRN ×2 (15:23)
[2022-07-12] MEDS: Morphine 4 MG/ML VIAL SLOW IVP PRN ×2 (15:36→20:06)
[2022-07-12] MEDS: Lactated Ringer's 1,000 ML IV SCH ×3 (16:21→22:18)
[2022-07-12] MEDS ORDERED: FLU VACC QS2022-23(6MOS UP)/PF 60 MCG/0.5 ML SYRINGE IM ONE (18:00)
[2022-07-12] MEDS: Famotidine 20 MG TAB PO SCH (20:07)
[2022-07-12 22:07] LABS: Lactic Acid 5.8 mmol/L (0.5-2.2)
[2022-07-12] MEDS ORDERED: HumaLOG 300 UNITS/3 ML VIAL SC PRN (22:22)
[2022-07-12] MEDS ORDERED: Fentanyl 100 MCG/2 ML VIAL SLOW IVP SCH (22:30)
[2022-07-12] MEDS ORDERED: Piperacillin/Tazobactam 3.375 GM in Sodium Chloride 0.9% 100 ML IVPB SCH ×2 (22:45→23:00)
[2022-07-12] MEDS ORDERED: Insulin Regular 300 UNITS/3 ML VIAL SC SCH (23:15)
[2022-07-12] MEDS: Sodium Chloride 0.9% 1,000 ML IV SCH (23:26)
[2022-07-13 00:56] LABS: Bacteria/HPF None Seen HPF (None Seen); Bilirubin Negative (Negative); Blood, Urine 1+ (Negative); Clarity Clear (Clear); Glucose, Urine (Dipstick) Greater than 1000 mg/dL (Negative); Ketone, Urine 60 mg/dL (Negative); Leukocyte Negative Leu/uL (Negative); Nitrite Negative (Negative); Protein, Urine (Dipstick) 20 mg/dL (Neg-Trace); RBC/HPF 0-3 HPF (0-3); Specific Gravity, Urine 1.036 (1.002-1.036); Squamous Epithelial 0-3 HPF (0-3); Urobilinogen Normal mg/dL (Less than 2); WBC/HPF 0-3 HPF (0-3); pH, Urine 5.5 (5.0-9.0)
[2022-07-13 00:57] LABS: Urine Culture Reflex No No
[2022-07-13] MEDS: hydrALAZINE 20 MG/ML VIAL SLOW IVP PRN ×2 (01:14→05:42)
[2022-07-13 02:15] LABS: #Lymphocytes 1.3 thou/uL (1.20-3.40); #Monocytes 0.8 thou/uL (0.11-0.59); #Neutrophils 17.3 thou/uL (1.40-6.50); %Basophils 0.1 % (0.0-1.0); %Eosinophils 0.1 % (0.0-10.0); %Lymphocytes 6.8 % (21.0-51.0); %Monocytes 3.9 % (0.0-10.0); %Neutrophils 89.1 % (42.0-75.0); Hemoglobin 15.5 g/dL (14.0-18.0); Mean Corpuscular HGB CONC 33.4 g/dL (32.0-36.0); Mean Corpuscular Hemoglobin 29.6 pg (27.0-31.0); Mean Corpuscular Volume 88.5 fL (78.0-98.0); Mean Platelet Volume 8.5 fL (7.4-10.4); Platelet Count 297 thou/uL (130-400); RBC Distribution Width 14.5 % (11.5-14.5); Red Blood Cell (RBC) Count 5.24 mill/uL (4.70-6.10); White Blood Cell (WBC) Count 19.4 thou/uL (4.8-10.8)
[2022-07-13 02:28] LABS: Lactic Acid 4.7 mmol/L (0.5-2.2)
[2022-07-13 02:54] LABS: Anion Gap 19 mmol/L (10-20); BUN (Urea Nitrogen) 11 mg/dL (8.9-20.6); Calc. Creatinine Clearance 206 mL/min (70-130); Calcium 9.1 mg/dL (7.8-10.44); Carbon Dioxide 12 mmol/L (22-29); Chloride 100 mmol/L (98-107); Estimated GFR 75; Glucose 461 mg/dL (70-105); Sodium 127 mmol/L (136-145)
[2022-07-13] MEDS: Morphine 4 MG/ML VIAL SLOW IVP PRN ×5 (03:02→23:25)
[2022-07-13] MEDS: Piperacillin/Tazobactam 3.375 GM in Sodium Chloride 0.9% 100 ML IVPB SCH ×3 (04:22→20:22)
[2022-07-13] MEDS: Sodium Chloride 0.9% 1,000 ML IV SCH ×4 (05:16→17:08)
[2022-07-13] MEDS: HumaLOG 300 UNITS/3 ML VIAL SC PRN ×2 (05:42→11:33)
[2022-07-13] MEDS: Famotidine 20 MG TAB PO SCH ×2 (08:17→20:46)
[2022-07-13] MEDS: Labetalol HCl 100 MG/20 ML VIAL SLOW IVP PRN (11:46)
[2022-07-13] MEDS ORDERED: HUMULIN R 100 UNITS in Sodium Chloride 0.9% 100 ML IVPB SCH (13:15)
[2022-07-13 13:32] LABS: ALT (SGPT) 27 U/L (8-55); AST (SGOT) 28 U/L (5-34); Albumin 3.8 g/dL (3.5-5.0); Alkaline Phosphatase 88 U/L (40-110); Bilirubin, Direct 0.6 mg/dL (0.1-0.3); Bilirubin, Total 1.5 mg/dL (0.2-1.2); Protein, Total 7.3 g/dL (6.0-8.3)
[2022-07-13] MEDS ORDERED: Sodium Chloride 0.9% 1,000 ML IV PRN ×4 (14:39)
[2022-07-13] MEDS ORDERED: Electrolyte Replacement Protocol 1 EACH IVPB SCH (14:39)
[2022-07-13] MEDS ORDERED: Dextrose 5 %-0.45 % NaCl 1,000 ML IV PRN (14:39)
[2022-07-13] MEDS ORDERED: NS 0.9% w/ 20 MEQ KCL 1,000 ML IV PRN ×2 (14:39)
[2022-07-13] MEDS: Morphine 2 MG/ML VIAL SLOW IVP PRN ×3 (14:51→19:21)
[2022-07-13 15:35] LABS: Anion Gap 13 mmol/L (10-20); BUN (Urea Nitrogen) 10 mg/dL (8.9-20.6); Calc. Creatinine Clearance 235 mL/min (70-130); Calcium 8.1 mg/dL (7.8-10.44); Carbon Dioxide 19 mmol/L (22-29); Chloride 98 mmol/L (98-107); Estimated GFR 87; Glucose 413 mg/dL (70-105); Potassium 3.9 mmol/L (3.5-5.1); Sodium 126 mmol/L (136-145)
[2022-07-13] MEDS: HUMULIN R 100 UNITS in Sodium Chloride 0.9% 100 ML IVPB SCH ×2 (15:51→21:57)
[2022-07-13] MEDS: Promethazine HCl 25 MG in Sodium Chloride 0.9% 50 ML IVPB PRN ×2 (16:53→22:42)
[2022-07-13 19:16] LABS: Anion Gap 14 mmol/L (10-20); BUN (Urea Nitrogen) 10 mg/dL (8.9-20.6); Calc. Creatinine Clearance 241 mL/min (70-130); Calcium 8.1 mg/dL (7.8-10.44); Carbon Dioxide 16 mmol/L (22-29); Chloride 102 mmol/L (98-107); Estimated GFR 90; Glucose 306 mg/dL (70-105); Potassium 3.9 mmol/L (3.5-5.1); Sodium 128 mmol/L (136-145)
[2022-07-13] MEDS: D5 1/2 NS w/20 mEq KCL 1,000 ML IV PRN (21:21)
[2022-07-13 23:17] LABS: Anion Gap 11 mmol/L (10-20); BUN (Urea Nitrogen) 9 mg/dL (8.9-20.6); Calc. Creatinine Clearance 256 mL/min (70-130); Carbon Dioxide 20 mmol/L (22-29); Chloride 102 mmol/L (98-107); Estimated GFR 96; Glucose 285 mg/dL (70-105); Potassium 3.7 mmol/L (3.5-5.1); Sodium 129 mmol/L (136-145)
[2022-07-13] MEDS ORDERED: Famotidine/PF 20 mg/2ml Vial SLOW IVP SCH (23:59)
[2022-07-14] MEDS: Sodium Chloride 0.9% 1,000 ML IV SCH ×5 (00:20→21:08)
[2022-07-14] MEDS: Morphine 4 MG/ML VIAL SLOW IVP PRN ×2 (01:10→03:03)
[2022-07-14] MEDS: HUMULIN R 100 UNITS in Sodium Chloride 0.9% 100 ML IVPB SCH (03:02)
[2022-07-14] MEDS: Piperacillin/Tazobactam 3.375 GM in Sodium Chloride 0.9% 100 ML IVPB SCH ×3 (04:04→21:11)
[2022-07-14 04:30] LABS: #Basophils 0.1 thou/uL (0.0-0.2); #Lymphocytes 1.4 thou/uL (1.20-3.40); #Monocytes 0.9 thou/uL (0.11-0.59); %Basophils 0.5 % (0.0-1.0); %Eosinophils 0.1 % (0.0-10.0); %Monocytes 5.2 % (0.0-10.0); %Neutrophils 86.2 % (42.0-75.0); Hemoglobin 12.7 g/dL (14.0-18.0); Mean Corpuscular HGB CONC 32.4 g/dL (32.0-36.0); Mean Corpuscular Hemoglobin 29.1 pg (27.0-31.0); Mean Corpuscular Volume 89.6 fL (78.0-98.0); Mean Platelet Volume 8.5 fL (7.4-10.4); Platelet Count 175 thou/uL (130-400); RBC Distribution Width 14.2 % (11.5-14.5); Red Blood Cell (RBC) Count 4.36 mill/uL (4.70-6.10); White Blood Cell (WBC) Count 17.4 thou/uL (4.8-10.8)
[2022-07-14 04:55] LABS: ALT (SGPT) 15 U/L (8-55); AST (SGOT) 16 U/L (5-34); Alkaline Phosphatase 68 U/L (40-110); Anion Gap 10 mmol/L (10-20); BUN (Urea Nitrogen) 9 mg/dL (8.9-20.6); Calc. Creatinine Clearance 253 mL/min (70-130); Calcium 7.9 mg/dL (7.8-10.44); Carbon Dioxide 23 mmol/L (22-29); Chloride 101 mmol/L (98-107); Estimated GFR 95; Globulin 3.1 g/dL (2.4-3.5); Glucose 185 mg/dL (70-105); Lipase 295 U/L (8-78); Magnesium 1.7 mg/dL (1.6-2.6); Phosphorus 1.2 mg/dL (2.3-4.7); Potassium 3.6 mmol/L (3.5-5.1); Protein, Total 6.1 g/dL (6.0-8.3); Sodium 130 mmol/L (136-145)
[2022-07-14] MEDS ORDERED: Potassium Phosphate 22 MMOL in Sodium Chloride 0.9% 250 ML 250 ML IVPB SCH (05:15)
[2022-07-14] MEDS ORDERED: Morphine 4 MG/ML VIAL SLOW IVP SCH (06:15)
[2022-07-14] MEDS: D5 1/2 NS w/20 mEq KCL 1,000 ML IV PRN (06:21)
[2022-07-14] MEDS: Famotidine/PF 20 mg/2ml Vial SLOW IVP SCH ×2 (07:56→21:11)
[2022-07-14] MEDS: Losartan 25 MG TAB PO SCH (07:56)
[2022-07-14] MEDS ORDERED: Magnesium 2 GM/50 ML(in water) 2 GM in Premix Bag 1 BAG IVPB SCH (08:00)
[2022-07-14] MEDS ORDERED: Morphine CADD 1 MG/ML CADD IVPB PRN (08:05)
[2022-07-14] MEDS ORDERED: diphenhydrAMINE 50 MG/ML VIAL IVP PRN (08:05)
[2022-07-14] MEDS ORDERED: Naloxone HCl 0.4 mg/ml Vial IV PRN (08:05)
[2022-07-14] MEDS ORDERED: diphenhydrAMINE 50 MG/ML VIAL IM PRN (08:05)
[2022-07-14] MEDS ORDERED: diphenhydrAMINE 25 MG CAP PO PRN (08:05)
[2022-07-14] MEDS ORDERED: Zolpidem Tartrate 5 MG TAB PO PRN (08:05)
[2022-07-14] MEDS ORDERED: Communication Order-Pharmacy FS SCH (08:15)
[2022-07-14] MEDS ORDERED: Morphine CADD 1 MG/ML CADD IVPB SCH (09:41)
[2022-07-14] MEDS ORDERED: Insulin Glargine 30 UNITS/0.3 ML VIAL SC SCH (10:15)
[2022-07-14] MEDS: HumaLOG 300 UNITS/3 ML VIAL SC PRN ×3 (10:32→21:11)
[2022-07-14] MEDS: Insulin Glargine 30 UNITS/0.3 ML VIAL SC SCH (21:11)
[2022-07-15] MEDS: Sodium Chloride 0.9% 1,000 ML IV SCH ×5 (03:40→20:52)
[2022-07-15] MEDS: HumaLOG 300 UNITS/3 ML VIAL SC PRN ×4 (05:31→20:51)
[2022-07-15] MEDS: Piperacillin/Tazobactam 3.375 GM in Sodium Chloride 0.9% 100 ML IVPB SCH ×3 (05:31→20:51)
[2022-07-15 06:33] LABS: #Eosinphils 0.1 thou/uL (0.0-0.7); #Lymphocytes 1.4 thou/uL (1.20-3.40); #Monocytes 0.8 thou/uL (0.11-0.59); #Neutrophils 9.6 thou/uL (1.40-6.50); %Basophils 0.1 % (0.0-1.0); %Eosinophils 1.2 % (0.0-10.0); %Lymphocytes 11.5 % (21.0-51.0); %Neutrophils 80.2 % (42.0-75.0); Hemoglobin 11.3 g/dL (14.0-18.0); Mean Corpuscular HGB CONC 31.8 g/dL (32.0-36.0); Mean Corpuscular Hemoglobin 28.9 pg (27.0-31.0); Mean Corpuscular Volume 90.9 fL (78.0-98.0); Mean Platelet Volume 8.8 fL (7.4-10.4); Platelet Count 128 thou/uL (130-400); RBC Distribution Width 13.9 % (11.5-14.5); Red Blood Cell (RBC) Count 3.93 mill/uL (4.70-6.10)
[2022-07-15 07:12] LABS: Phosphorus 1.7 mg/dL (2.3-4.7)
[2022-07-15] MEDS: Famotidine/PF 20 mg/2ml Vial SLOW IVP SCH ×2 (08:41→20:51)
[2022-07-15] MEDS: PHOS-NAK 1 PKT PACK PO SCH ×2 (08:42→13:12)
[2022-07-15] MEDS: Losartan 25 MG TAB PO SCH (08:42)
[2022-07-15] MEDS ORDERED: Insulin Glargine 30 UNITS/0.3 ML VIAL SC SCH (09:00)
[2022-07-15 12:24] LABS: Anion Gap 13 mmol/L (10-20); BUN (Urea Nitrogen) 9 mg/dL (8.9-20.6); Calc. Creatinine Clearance 305 mL/min (70-130); Calcium 7.6 mg/dL (7.8-10.44); Carbon Dioxide 19 mmol/L (22-29); Chloride 100 mmol/L (98-107); Estimated GFR 110; Glucose 275 mg/dL (70-105); Potassium 3.9 mmol/L (3.5-5.1); Sodium 128 mmol/L (136-145)
[2022-07-15] MEDS ORDERED: Polyethylene Glycol 3350 17 GM Packet PO SCH (13:00)
[2022-07-15 15:58] VITALS: BMI 50.7
[2022-07-15] MEDS: Docusate 100 MG CAP PO SCH (20:50)
[2022-07-15] MEDS: Insulin Glargine 30 UNITS/0.3 ML VIAL SC SCH (20:51)
[2022-07-15] MEDS: Labetalol HCl 100 MG/20 ML VIAL SLOW IVP PRN (23:29)
[2022-07-16] MEDS: Piperacillin/Tazobactam 3.375 GM in Sodium Chloride 0.9% 100 ML IVPB SCH ×3 (05:49→20:42)
[2022-07-16] MEDS: Sodium Chloride 0.9% 1,000 ML IV SCH (05:49)
[2022-07-16] MEDS: HumaLOG 300 UNITS/3 ML VIAL SC PRN ×3 (05:49→16:46)
[2022-07-16 06:43] LABS: #Basophils 0.1 thou/uL (0.0-0.2); #Eosinphils 0.1 thou/uL (0.0-0.7); #Lymphocytes 1.1 thou/uL (1.20-3.40); #Monocytes 0.8 thou/uL (0.11-0.59); #Neutrophils 6.5 thou/uL (1.40-6.50); %Basophils 1.3 % (0.0-1.0); %Eosinophils 1.7 % (0.0-10.0); %Lymphocytes 12.4 % (21.0-51.0); %Monocytes 8.9 % (0.0-10.0); %Neutrophils 75.7 % (42.0-75.0); Hemoglobin 10.7 g/dL (14.0-18.0); Mean Corpuscular HGB CONC 31.8 g/dL (32.0-36.0); Mean Corpuscular Hemoglobin 28.9 pg (27.0-31.0); Mean Corpuscular Volume 90.9 fL (78.0-98.0); Mean Platelet Volume 8.7 fL (7.4-10.4); Platelet Count 127 thou/uL (130-400); Red Blood Cell (RBC) Count 3.71 mill/uL (4.70-6.10); White Blood Cell (WBC) Count 8.6 thou/uL (4.8-10.8)
[2022-07-16 06:57] LABS: Anion Gap 12 mmol/L (10-20); BUN (Urea Nitrogen) 8 mg/dL (8.9-20.6); Calc. Creatinine Clearance 328 mL/min (70-130); Calcium 7.5 mg/dL (7.8-10.44); Carbon Dioxide 20 mmol/L (22-29); Chloride 101 mmol/L (98-107); Estimated GFR 112; Glucose 246 mg/dL (70-105); Lipase 82 U/L (8-78); Potassium 3.5 mmol/L (3.5-5.1); Sodium 129 mmol/L (136-145)
[2022-07-16] MEDS ORDERED: clonazePAM 1 MG TAB PO PRN (07:55)
[2022-07-16] MEDS ORDERED: Potassium Chloride 20 MEQ TAB PO SCH (08:00)
[2022-07-16] MEDS ORDERED: NPH, Human Insulin Isophane 300 UNIT/3 ML VIAL SC SCH (08:00)
[2022-07-16] MEDS ORDERED: HYDROcodone/Acetaminophen 10/325 mg Tablet PO SCH (09:00)
[2022-07-16] MEDS ORDERED: Insulin Glargine 30 UNITS/0.3 ML VIAL SC SCH (09:00)
[2022-07-16] MEDS: Docusate 100 MG CAP PO SCH (09:14)
[2022-07-16] MEDS: Losartan 25 MG TAB PO SCH (09:14)
[2022-07-16] MEDS: Polyethylene Glycol 3350 17 GM Packet PO SCH (09:15)
[2022-07-16] MEDS: Senokot S 8.6-50 MG TAB PO SCH ×2 (09:15→20:43)
[2022-07-16] MEDS: Famotidine/PF 20 mg/2ml Vial SLOW IVP SCH ×2 (09:15→20:42)
[2022-07-16] MEDS ORDERED: Bisacodyl 10 MG SUPP PR PRN (10:31)
[2022-07-16] MEDS ORDERED: Furosemide 20 MG/2 ML VIAL SLOW IVP SCH (11:45)
[2022-07-16] MEDS: HYDROcodone/Acetaminophen 10/325 mg Tablet PO SCH ×3 (12:24→20:43)
[2022-07-16] MEDS: Morphine 4 MG/ML VIAL SLOW IVP PRN (15:44)
[2022-07-16] MEDS: oxyCODONE 5 MG TAB PO PRN (18:46)
[2022-07-16] MEDS: Promethazine HCl 25 MG in Sodium Chloride 0.9% 50 ML IVPB PRN (19:15)
[2022-07-16] MEDS: NPH, Human Insulin Isophane 300 UNIT/3 ML VIAL SC SCH (20:39)
[2022-07-16] MEDS: Atorvastatin Calcium 40 MG TAB PO SCH (20:42)
[2022-07-16] MEDS: Zolpidem Tartrate 5 MG TAB PO SCH (20:44)
[2022-07-16] MEDS ORDERED: Non-Formulary Item 1 EACH (Zolpidem Tartrate [Ambien] 10 MG Tablet) PO SCH (21:00)
[2022-07-16] MEDS ORDERED: Non-Formulary Item 1 EACH (Atorvastatin Calcium [Lipitor] 80 MG Tablet) PO SCH (21:00)
[2022-07-16] MEDS ORDERED: diphenhydrAMINE 50 MG/ML VIAL IVP SCH (21:45)
[2022-07-17] MEDS: HYDROcodone/Acetaminophen 10/325 mg Tablet PO SCH ×6 (01:20→20:37)
[2022-07-17] MEDS: Piperacillin/Tazobactam 3.375 GM in Sodium Chloride 0.9% 100 ML IVPB SCH (05:21)
[2022-07-17 06:33] LABS: Reticulocyte Count 1.2 % (0.5-1.5)
[2022-07-17 06:52] LABS: Hemoglobin A1c 11.8 % (4.0-6.0)
[2022-07-17 06:54] LABS: Anion Gap 12 mmol/L (10-20); BUN (Urea Nitrogen) 8 mg/dL (8.9-20.6); Calc. Creatinine Clearance 332 mL/min (70-130); Calcium 7.9 mg/dL (7.8-10.44); Carbon Dioxide 22 mmol/L (22-29); Chloride 101 mmol/L (98-107); Estimated GFR 113; Glucose 168 mg/dL (70-105); Iron 16 ug/dL (65-175); Iron Binding Capacity, Total 170 mcg/dL (261-462); Lipase 62 U/L (8-78); Magnesium 1.9 mg/dL (1.6-2.6); Potassium 3.4 mmol/L (3.5-5.1); Sodium 132 mmol/L (136-145)
[2022-07-17 06:54] LABS: Iron Binding Capacity, Total 169 mcg/dL (261-462)
[2022-07-17 06:55] LABS: Iron 16 ug/dL (65-175)
[2022-07-17 07:04] LABS: Hemoglobin 10.5 g/dL (14.0-18.0); Mean Corpuscular HGB CONC 31.9 g/dL (32.0-36.0); Mean Corpuscular Hemoglobin 28.8 pg (27.0-31.0); Mean Corpuscular Volume 90.2 fL (78.0-98.0); Mean Platelet Volume 8.7 fL (7.4-10.4); Platelet Count 122 thou/uL (130-400); RBC Distribution Width 13.8 % (11.5-14.5); Red Blood Cell (RBC) Count 3.64 mill/uL (4.70-6.10); White Blood Cell (WBC) Count 7.6 thou/uL (4.8-10.8)
[2022-07-17] MEDS ORDERED: Magnesium 2 GM/50 ML(in water) 2 GM in Premix Bag 1 BAG IVPB SCH (08:00)
[2022-07-17] MEDS ORDERED: Potassium Chloride 20 MEQ TAB PO SCH (08:00)
[2022-07-17 08:41] LABS: Band 4 % (5-11); Lymphocytes 11 % (21-51); MDiff Complete? YES; Monocytes 7 % (0-10); Neutrophil 78 % (42-75); Platelet Morphology Comment Appears Decreased; Polychromasia SLIGHT = 2-3 cells (100X) (0-2/hpf)
[2022-07-17] MEDS: Losartan 25 MG TAB PO SCH (08:57)
[2022-07-17] MEDS: Polyethylene Glycol 3350 17 GM Packet PO SCH (08:57)
[2022-07-17] MEDS: Enoxaparin Sodium 40 MG/0.4 ML SYRINGE SC SCH (08:57)
[2022-07-17] MEDS: Senokot S 8.6-50 MG TAB PO SCH ×2 (08:57→20:37)
[2022-07-17] MEDS: Ferrous Sulfate 325 MG TAB PO SCH (08:57)
[2022-07-17] MEDS: Famotidine/PF 20 mg/2ml Vial SLOW IVP SCH (08:58)
[2022-07-17] MEDS: NPH, Human Insulin Isophane 300 UNIT/3 ML VIAL SC SCH ×2 (09:00→20:38)
[2022-07-17] MEDS: Morphine 4 MG/ML VIAL SLOW IVP PRN ×2 (10:00→14:41)
[2022-07-17] MEDS: Promethazine HCl 25 MG in Sodium Chloride 0.9% 50 ML IVPB PRN (11:04)
[2022-07-17] MEDS ORDERED: Furosemide 20 MG/2 ML VIAL SLOW IVP SCH (11:45)
[2022-07-17] MEDS ORDERED: Bisacodyl 10 MG SUPP PR SCH (11:45)
[2022-07-17] MEDS ORDERED: Bisacodyl 5 MG TAB PO SCH (11:45)
[2022-07-17] MEDS: Simethicone Chewable 80 MG TAB PO SCH ×3 (12:18→20:36)
[2022-07-17] MEDS: HumaLOG 300 UNITS/3 ML VIAL SC PRN ×2 (12:31→16:35)
[2022-07-17] MEDS: oxyCODONE 5 MG TAB PO PRN (17:53)
[2022-07-17] MEDS: Zolpidem Tartrate 5 MG TAB PO SCH (20:36)
[2022-07-17] MEDS: Atorvastatin Calcium 40 MG TAB PO SCH (20:37)
[2022-07-18] MEDS: HYDROcodone/Acetaminophen 10/325 mg Tablet PO SCH ×6 (01:16→20:38)
[2022-07-18] MEDS: oxyCODONE 5 MG TAB PO PRN ×2 (03:34→23:34)
[2022-07-18] MEDS: HumaLOG 300 UNITS/3 ML VIAL SC PRN ×4 (05:55→20:39)
[2022-07-18 06:55] LABS: #Eosinphils 0.2 thou/uL (0.0-0.7); #Lymphocytes 1.2 thou/uL (1.20-3.40); #Monocytes 0.9 thou/uL (0.11-0.59); #Neutrophils 5.2 thou/uL (1.40-6.50); %Basophils 0.1 % (0.0-1.0); %Eosinophils 2.5 % (0.0-10.0); %Lymphocytes 16.3 % (21.0-51.0); %Monocytes 11.9 % (0.0-10.0); %Neutrophils 69.2 % (42.0-75.0); Hemoglobin 10.7 g/dL (14.0-18.0); Mean Corpuscular HGB CONC 31.6 g/dL (32.0-36.0); Mean Corpuscular Hemoglobin 28.3 pg (27.0-31.0); Mean Corpuscular Volume 89.5 fL (78.0-98.0); Mean Platelet Volume 8.2 fL (7.4-10.4); Platelet Count 137 thou/uL (130-400); RBC Distribution Width 13.9 % (11.5-14.5); Red Blood Cell (RBC) Count 3.78 mill/uL (4.70-6.10); White Blood Cell (WBC) Count 7.5 thou/uL (4.8-10.8)
[2022-07-18 07:21] LABS: Anion Gap 12 mmol/L (10-20); BUN (Urea Nitrogen) 8 mg/dL (8.9-20.6); Calc. Creatinine Clearance 298 mL/min (70-130); Calcium 8.2 mg/dL (7.8-10.44); Carbon Dioxide 24 mmol/L (22-29); Chloride 98 mmol/L (98-107); Estimated GFR 109; Glucose 278 mg/dL (70-105); Magnesium 1.8 mg/dL (1.6-2.6); Potassium 3.6 mmol/L (3.5-5.1); Sodium 130 mmol/L (136-145)
[2022-07-18] MEDS: Polyethylene Glycol 3350 17 GM Packet PO SCH (08:35)
[2022-07-18] MEDS: Ferrous Sulfate 325 MG TAB PO SCH (08:35)
[2022-07-18] MEDS: Senokot S 8.6-50 MG TAB PO SCH ×2 (08:35→20:37)
[2022-07-18] MEDS: NPH, Human Insulin Isophane 300 UNIT/3 ML VIAL SC SCH ×2 (08:36→20:38)
[2022-07-18] MEDS: Enoxaparin Sodium 40 MG/0.4 ML SYRINGE SC SCH (08:36)
[2022-07-18] MEDS: Simethicone Chewable 80 MG TAB PO SCH ×4 (08:36→20:37)
[2022-07-18] MEDS ORDERED: Magnesium 2 GM/50 ML(in water) 2 GM in Premix Bag 1 BAG IVPB SCH (10:00)
[2022-07-18] MEDS: Losartan 25 MG TAB PO SCH (10:10)
[2022-07-18] MEDS: Morphine 4 MG/ML VIAL SLOW IVP PRN (10:17)
[2022-07-18] MEDS ORDERED: Furosemide 20 MG/2 ML VIAL SLOW IVP SCH (12:30)
[2022-07-18] MEDS ORDERED: Bisacodyl 5 MG TAB PO SCH (12:45)
[2022-07-18] MEDS ORDERED: Fleet Enema 133 ML BOT PR SCH (13:00)
[2022-07-18] MEDS: Atorvastatin Calcium 40 MG TAB PO SCH (20:37)
[2022-07-18] MEDS: Zolpidem Tartrate 5 MG TAB PO SCH (20:37)
[2022-07-19] MEDS: HYDROcodone/Acetaminophen 10/325 mg Tablet PO SCH ×4 (00:22→12:29)
[2022-07-19 06:34] LABS: #Eosinphils 0.2 thou/uL (0.0-0.7); #Monocytes 0.8 thou/uL (0.11-0.59); #Neutrophils 4.8 thou/uL (1.40-6.50); %Basophils 0.3 % (0.0-1.0); %Eosinophils 3.3 % (0.0-10.0); %Lymphocytes 14.9 % (21.0-51.0); %Monocytes 11.5 % (0.0-10.0); %Neutrophils 70.1 % (42.0-75.0); Hemoglobin 10.6 g/dL (14.0-18.0); Mean Corpuscular HGB CONC 31.3 g/dL (32.0-36.0); Mean Corpuscular Hemoglobin 28.4 pg (27.0-31.0); Mean Corpuscular Volume 90.8 fL (78.0-98.0); Mean Platelet Volume 8.2 fL (7.4-10.4); Platelet Count 146 thou/uL (130-400); Red Blood Cell (RBC) Count 3.73 mill/uL (4.70-6.10); White Blood Cell (WBC) Count 6.9 thou/uL (4.8-10.8)
[2022-07-19 06:46] LABS: Anion Gap 13 mmol/L (10-20); BUN (Urea Nitrogen) 8 mg/dL (8.9-20.6); Calc. Creatinine Clearance 270 mL/min (70-130); Calcium 8.2 mg/dL (7.8-10.44); Carbon Dioxide 24 mmol/L (22-29); Chloride 97 mmol/L (98-107); Estimated GFR 100; Glucose 286 mg/dL (70-105); Magnesium 1.8 mg/dL (1.6-2.6); Potassium 3.7 mmol/L (3.5-5.1); Sodium 130 mmol/L (136-145)
[2022-07-19 08:16] VITALS: BP 156/89; TEMP 99
[2022-07-19] MEDS: Senokot S 8.6-50 MG TAB PO SCH (08:50)
[2022-07-19] MEDS: Losartan 25 MG TAB PO SCH (08:50)
[2022-07-19] MEDS: Ferrous Sulfate 325 MG TAB PO SCH (08:50)
[2022-07-19] MEDS: Simethicone Chewable 80 MG TAB PO SCH ×2 (08:50→12:29)
[2022-07-19] MEDS: Polyethylene Glycol 3350 17 GM Packet PO SCH (08:50)
[2022-07-19] MEDS: Enoxaparin Sodium 40 MG/0.4 ML SYRINGE SC SCH (08:51)
[2022-07-19] MEDS: NPH, Human Insulin Isophane 300 UNIT/3 ML VIAL SC SCH (08:51)
[2022-07-19] MEDS ORDERED: Magnesium 2 GM/50 ML(in water) 2 GM in Premix Bag 1 BAG IVPB SCH (09:00)
[2022-07-19] MEDS: HumaLOG 300 UNITS/3 ML VIAL SC PRN (12:29)
[2022-07-19] MEDS ORDERED: Enoxaparin Sodium 60 MG/0.6 ML SYRINGE SC SCH (21:00)
== END 2022-07-19 14:10 | disposition home or self-care (01) | DRG 438 ==
LOC: SUATTDRO 09:54 → ERS 09:54 → 2NO 13:00 → CCU 07-13 13:49 → T4-B 07-14 12:59
PROVIDERS: ADMIT Physician Assistant; ATTEND Family Medicine
DX: K85.90 Acute pancreatitis without necrosis or infection, unspecified (principal); E11.10 Type 2 diabetes mellitus with ketoacidosis without coma; Z68.42 Body mass index [BMI] 45.0-49.9, adult; I16.1 Hypertensive emergency; I10 Essential (primary) hypertension; E66.01 Morbid (severe) obesity due to excess calories; G47.33 Obstructive sleep apnea (adult) (pediatric); E78.5 Hyperlipidemia, unspecified; K59.00 Constipation, unspecified; M54.9 Dorsalgia, unspecified; G89.29 Other chronic pain; D69.59 Other secondary thrombocytopenia; D64.9 Anemia, unspecified; Z90.49 Acquired absence of other specified parts of digestive tract; Z79.84 Long term (current) use of oral hypoglycemic drugs; Z88.8 Allergy status to other drugs, medicaments and biological substances
CPT/HCPCS: 36415; 36416; 74177; 76705; 80048; 80053; 80076; 81001; 82010; 82728; 82805; 83036; 83540; 83550; 83605; 83690; 83735; 84100; 84478; 85025; 85046; 87040; 87811; 93005; 93306; 96361; 96374; 96375; 96376; J0360; J1200; J1610; J1650; J1815; J1940; J2270; J2274; J2543; J2550; J3010; J3475; J3480; J3490; J7050; J7120; Q9967; S0028; U0003; U0005